=== PATIENT | female | born 1960 | race Two or more races ===

== ENCOUNTER 2024-05-07 22:03 | Inpatient (IN) | payer MEDICARE, MEDICAID, SELFPAY ==
[2024-05-07 22:06] VITALS: BMI 30.9
--- NOTE | 2024-05-07 22:28 | EKG_ITS ---
[facility] Test Date: 2024-05-07 Pat Name: DENISE TELLES Department: Room: - Gender: Female Cross Roller: : 1960 Requested By: Kasi Villafana Order Number: [id number] Reading MD: Kasi Villafana Measurements Intervals [place] Rate: 119 P: 46 [place]: 140 QRS: -29 QRSD: 85 T: 70 QT: 306 QTc: 432 Interpretive Statements SINUS TACHYCARDIA BORDERLINE LEFT AXIS DEVIATION [QRS AXIS < -20] LEFT VENTRICULAR HYPERTROPHY AND ST-T CHANGE [VOLTAGE CRITERIA PLUS ST/T ABNORMALITY] No previous ECG available for comparison /store/S0/[id number].pdf
[2024-05-07 22:32] VITALS: BP 122/81; PULSE 117; RESP 20; TEMP 36.9; O2SAT 99
--- NOTE | 2024-05-07 22:41 | XR_ITS ---
Examination: AP chest single view Technique: AP portable upright chest single view Exam date and time: May 07, 2024, 10:29 PM Indications: Shortness of breath today. Findings: Normal heart size. No pneumonia or pulmonary edema. Intact osseous structures Impression: No pulmonary edema or pneumonia
--- NOTE | 2024-05-07 22:42 | PD.EDRME ---
Rapid Medical Screening Exam E Arrival date/time: 05/07/24 22:03 63F with history of cirrhosis, psoriatic arthritis , and anemia presents to ED with ab fullness/pain that is causing SOB. Chief Complaint: Abdominal Pain Vital signs: Vital Signs Temperature 98.5 F 05/07/24 22:32 Pulse Rate 117 H 05/07/24 22:32 Respiratory Rate 20 05/07/24 22:32 Blood Pressure 122/81 05/07/24 22:32 Pulse Oximetry (%) 99 05/07/24 22:32 Oxygen Delivery Method Room Air 05/07/24 22:32
[2024-05-07 23:49] LABS: Basophils # (Auto) 0.1 Thou/mm3 (0.0-0.2); Basophils % (Auto) 0 % (0-2.5); Eosinophils % (Auto) 0 % (0-10); Hematocrit 34.4 % (36.0-46.0); Hemoglobin 11.4 g/dL (12.0-16.0); Immature Granulocytes % (Auto) 1 % (0-0); Immature Granulocytes Auto 0.14 Thou/mm3 (0.00-0.00); Lymphocytes # (Auto) 3.1 Thou/mm3 (1.0-4.8); Lymphocytes % (Auto) 21 % (10-50); Mean Corpuscular HGB Conc 33.1 g/dl (31.0-37.0); Mean Corpuscular Hemoglobin 29.7 pg (25.0-35.0); Mean Corpuscular Volume 90 fL (80-100); Monocytes # (Auto) 0.7 Thou/mm3 (0.0-0.8); Monocytes % (Auto) 5 % (0-12); Neutrophils % (Auto) 73 % (37-80); Nucleated Red Blood Cell % 0 /100 WBC (0); Platelet Count 250 Thou/mm3 (140-440); RDW Standard Deviation 45.6 fL (36.4-46.3); Red Blood Count 3.84 Miln/mm3 (4.00-5.20)
[2024-05-08] VITALS (11 sets, daily range): BP systolic 148–195; BP diastolic 80–99; PULSE 86–103; RESP 15–30; TEMP 36.4–37.4; O2SAT 94–100
[2024-05-08 00:01] LABS: INR 1.1 (0.9-1.3); Partial Thromboplastin Time 24.4 Seconds (22.0-36.0); Prothrombin Time 11.8 Seconds (9.0-12.2)
[2024-05-08 00:07] LABS: Alanine Aminotransferase 42 U/L (10-49); Albumin, Serum 3.5 gm/dL (3.4-4.8); Albumin/Globulin Ratio 1.3 (1.2-2.2); Alkaline Phosphatase 157 U/L (46-116); Anion Gap 13 (7-16); Aspartate Amino Transferase 57 U/L (0-34); BUN/Creatinine Ratio 25 Ratio (12-20); Bilirubin,Total 1.7 mg/dL (0.3-1.2); Blood Urea Nitrogen 27 mg/dL (9-23); Calcium 8.7 mg/dL (8.3-10.6); Calcium (Corrected) 9.1 mg/dL (8.5-10.1); Carbon Dioxide 20.1 mMol/L (20.0-31.0); Chloride 108 mMol/L (98-107); Creatinine (Component) 1.1 mg/dL (0.6-1.3); Estimated Creatinine Clearance 54.1 mL/min (>60); Globulin 2.8 gm/dL (2.3-3.5); Glucose 231 mg/dL (74-106); Lipase 77 U/L (12-53); Osmolality,Calculated 293 (275-295); Sodium 141 mMol/L (136-145); Total Protein 6.3 gm/dL (5.7-8.2); Troponin I 0.025 ng/mL (0.0-0.045); eGFR 56 See Note
--- NOTE | 2024-05-08 02:27 | PD.EDABDPN ---
ED Abdominal Pain RME/HPI General Chief Complaint: Abdominal Pain Stated complaint: ABD DISTENTION, SOB, WEAKNESS Arrival date/time: 05/07/24 22:03 Limitations: no limitations RME / HPI RME / HPI narrative: 05/07/24 22:03 63F with history of cirrhosis, psoriatic arthritis , and anemia presents to ED with ab fullness/pain that is causing SOB. -------- Dr. Spears's Main ED Evaluation: Related Data Home Medications ?Medication ?Instructions ?Recorded ?Confirmed No Known Home Medications 12/03/19 12/03/19 Allergies Allergy/AdvReac Type Severity Reaction Status Date / Time Sulfa (Sulfonamide Allergy Rash Verified 05/07/24 22:05 Antibiotics) Review of Systems Review of Systems Systems Reviewed: All systems reviewed, normal except as documented ED Exam General Limitations: Present no limitations General appearance: Present alert and in no apparent distress Head Head exam: Present atraumatic Eye Eye exam: Present normal appearance, PERRL and EOMI ENT ENT exam: Present normal exam, normal oropharynx and mucous membranes moist Neck Neck exam: Present normal inspection, full ROM and trachea midline Chest Chest inspection: Present normal inspection and symmetric chest wall rise Respiratory Respiratory exam: Present normal lung sounds bilaterally Cardiovascular Cardiovascular exam: Present regular rate, normal rhythm and normal heart sounds Abdominal Exam Abdominal exam: Present soft and normal bowel sounds Extremities Exam Extremities exam: Present normal inspection and full ROM Back Exam Back exam: Present normal inspection and full ROM Neurological Exam Neurological exam: Present alert, oriented X3 and CN II-XII intact Psychiatric Psychiatric exam: Present normal affect and normal mood Skin Skin exam: Present warm, dry, intact and normal color Course Quality Measures none Orders Category Date Time Status EKG (ED ONLY) *Do not use* NOW Care 05/07/24 22:28 Completed EKG (ED Only) Stat Exams 05/07/24 22:28 Draft XR chest 1V portable Stat Exams 05/07/24 22:41 Completed CBC Stat Lab 05/07/24 23:30 Completed Comprehensive Metabolic Panel Stat Lab 05/07/24 23:30 Completed Drug Screen,Urine Stat Lab 05/07/24 22:41 Ordered Lipase Stat Lab 05/07/24 23:30 Completed Partial Thromboplastin Time Stat Lab 05/07/24 23:30 Completed Prothrombin Time with INR Stat Lab 05/07/24 23:30 Completed Troponin I Stat Lab 05/07/24 23:30 Completed Urinalysis Stat Lab 05/07/24 22:41 Ordered Vital Signs Vital signs: Vital Signs Temperature 98.5 F 05/07/24 22:32 Pulse Rate 117 H 05/07/24 22:32 Respiratory Rate 20 05/07/24 22:32 Blood Pressure 122/81 05/07/24 22:32 Pulse Oximetry (%) 99 05/07/24 22:32 Oxygen Delivery Method Room Air 05/07/24 22:32 Discharge Plan Prescriptions/Referrals Prescriptions/Med Rec: No Action No Known Home Medications Referrals: No Primary/Family,Physician [Primary Care Provider] - In 1 week Patient/Caregiver Discharge Instructions Print Language: [place]ib[place]ian
--- NOTE | 2024-05-08 03:30 | PD.EDADULT ---
ED General RME/HPI General Chief complaint: Abdominal Pain Stated complaint: ABD DISTENTION, SOB, WEAKNESS Arrival date/time: 05/07/24 22:03 Limitations: no limitations RME / HPI RME / HPI narrative: 05/07/24 22:03 63F with history of cirrhosis, psoriatic arthritis , and anemia presents to ED with ab fullness/pain that is causing SOB. -------- Dr. Spears's Main ED Evaluation: 63-year-old female with history of cirrhosis, depression, depression arthritis, history of psoriasis anemia, chronic pain, was off her medications since February 25 when her insurance has run out. Patient states the pain is gotten worse over the last few days, it is constant and 3 out of 10. Increasing shortness of breath from the abdominal pain. Nausea, and vomiting but no bright red blood per rectum. The patient is on a very limited $1800 a month income and cannot afford any of her medications The patient was on spironolactone, Roxicodone extended release, hydrocodone ER 15 mg twice a day, oxy codon 5 mg IR 1-2 a day, lamotrigine 200 mg 1 daily, metoprolol 50 mg 1 daily, Otezla 30 mg twice a day, duloxetine 60 mg(Cymbalta) for pain control, and Skyrizi injection. More depressed since her mother March 28. Patient came in to get a checkup to make sure that she does not have an active infection. No vomiting blood, no blood in her stool. Related Data Home Medications ?Medication ?Instructions ?Recorded ?Confirmed No Known Home Medications 12/03/19 12/03/19 Allergies Allergy/AdvReac Type Severity Reaction Status Date / Time Sulfa (Sulfonamide Allergy Rash Verified 05/07/24 22:05 Antibiotics) Review of Systems Review of Systems Systems Reviewed: All systems reviewed, normal except as documented ED Exam General Limitations: Present no limitations General appearance: Present alert, in no apparent distress and other (appears clinically dehydrated) Head Head exam: Present atraumatic Eye Eye exam: Present PERRL, EOMI and scleral icterus (mild) ENT ENT exam: Present normal oropharynx and mucous membranes dry Neck Neck exam: Present normal inspection, full ROM and trachea midline Chest Chest inspection: Present normal inspection and symmetric chest wall rise Respiratory Respiratory exam: Present normal lung sounds bilaterally Cardiovascular Cardiovascular exam: Present normal rhythm, tachycardia and normal heart sounds Abdominal Exam Abdominal exam: Present soft and other (cholecystectomy scar, no fluid wave) Abdominal tenderness: Present epigastrium Extremities Exam Extremities exam: Present normal inspection, full ROM and normal capillary refill Back Exam Back exam: Present normal inspection and full ROM Neurological Exam Neurological exam: Present alert, oriented X3 and CN II-XII intact Psychiatric Psychiatric exam: Present normal affect and normal mood Skin Skin exam: Present warm, dry, intact and normal color Course Course Course Narrative: CXR is ordered for determining the etiology of shortness of breath. 0506: Sepsis alert initiated. Orders made at this time are congruent with ED Adult Sepsis Order List. Re-evaluation is to be completed. NS IVF and Zosyn ordered. 0600: Care signed out to the next oncoming provider. Past medical, surgical, social and family history reviewed. Vitals and home medications reviewed. Results and treatment plan discussed. They will assume the care of the patient at this time and will follow the patient, pending CT abdomen pelvis and labs. Quality Measures Possible source: GI tract/intra-abdominal Blood cultures ordered: yes Antibiotic ordered: Yes sepsis and none Orders Category Date Time Status CT Screening NOW Care 05/08/24 05:32 Active [employer] Q4H START 00 Care 05/08/24 05:04 Active EKG (ED ONLY) *Do not use* NOW Care 05/07/24 22:28 Completed Insert IV NOW Care 05/08/24 05:04 Active Strict Intake and Output Routine Care 05/08/24 05:[address] abdomen pelvis w con Stat Exams 05/08/24 05:32 Ordered EKG (ED Only) Stat Exams 05/07/24 22:28 Draft US gall bladder Stat Exams 05/08/24 03:45 Taken XR chest 1V SEPSIS PROTOCOL Stat Exams 05/08/24 05:04 Ordered XR chest 1V portable Stat Exams 05/07/24 22:41 Completed Blood Culture (Lab) Stat Lab 05/08/24 05:04 Ordered CBC Stat Lab 05/07/24 23:30 Completed CBC Stat Lab 05/08/24 05:04 Ordered Comprehensive Metabolic Panel Stat Lab 05/07/24 23:30 Completed Drug Screen,Urine Stat Lab 05/07/24 04:30 Completed Lactate (Lactic Acid) Stat Lab 05/08/24 05:04 Ordered Lipase Stat Lab 05/07/24 23:30 Completed Partial Thromboplastin Time Stat Lab 05/07/24 23:30 Completed Procalcitonin Stat Lab 05/08/24 05:04 Ordered Prothrombin Time with INR Stat Lab 05/07/24 23:30 Completed Troponin I Stat Lab 05/07/24 23:30 Completed Troponin I Stat Lab 05/08/24 05:04 Ordered Urinalysis Stat Lab 05/07/24 04:30 Completed Urinalysis Stat Lab 05/08/24 05:04 Ordered Ketorolac Inj [Toradol Inj] Med 05/08/24 05:15 Discontinued 15 mg IVP X1 ONE Piper/Tazo 3.375 gm Premix [Zosyn] Med 05/08/24 05:06 Discontinued 3.375 gm in 50 ml IV X1 Sodium Chloride 0.9% 1000 ml [Ns] 1,641 ml Med 05/08/24 05:13 Active IV 1,641 mls/hr Vital Signs Vital signs: Vital Signs Temperature 98.5 F 05/07/24 22:32 Pulse Rate 117 H 05/07/24 22:32 Respiratory Rate 20 05/07/24 22:32 Blood Pressure 122/81 05/07/24 22:32 Pulse Oximetry (%) 99 05/07/24 22:32 Oxygen Delivery Method Room Air 05/07/24 22:32 [facility] Patient data External records reviewed:: [facility] previous records (Per chart review, patient has no relevant previous ED visits.) Clinical information provided by:: patient Social determinants that could affect healthcare access:: mental health (depression) Patient has the following chronic illnesses:: cirrhosis How is presenting disease/condition affected by chronic disease/condition?: caused by Evaluation data The following diagnostics were reviewed and interpreted by me:: lab results, radiology exam(s) and EKG tracing(s) Lab and/or radiology exams considered but not ordered:: none Interpretation Summary: WBC count is elevated at 15.0, PT and INR are normal, PTT is normal, Total Bilirubin is 1.7, Lipase is 77, according to my interpretation. EKG done at 2230, sinus tachycardia, rate of 119, LVH, T-wave inversion in avL (which is new), old Q waves, no STEMI, according to my interpretation. ----- [place] [facility] Report Signed Patient: SABRINADENISE NGUYEN [facility]. Record#: [id number] Birthdate: 1960 Age/Sex: 63 / F Location: [facility] Attending Dr: Ordering Physician: Kasi Villafana PA-C Date of Service: 05/07/24 Procedure(s): XR chest 1V portable Accession Number(s): [id number] cc: Veto Martinez MD; Kasi Villafana PA-C~ Examination: AP chest single view Technique: AP portable upright chest single view Exam date and time: May 07, 2024, 10:29 PM Indications: Shortness of breath today. Findings: Normal heart size. No pneumonia or pulmonary edema. Intact osseous structures Impression: No pulmonary edema or pneumonia Dictated By: Veto Martinez MD Signed By: <Electronically signed by Veto Martinez MD in [place]> 05/07/24 2319 [place] Preliminary Report Draft Patient: DENISE TELLES. Record#: [id number] Birthdate: 1960 Age/Sex: 63 / F Location: [facility] Attending Dr: Ordering Physician: Date of Service: Procedure(s): Accession Number(s): cc: ~ Gallbladder ultrasound. May 08, 2024 0411 hours Clinical history: Abdomen pain, elevated lipase Comparison: None Findings: The evaluation is limited due to overlying bowel gas The liver measures 15.3 cm and demonstrates nodular contour. There is increased echogenicity of the liver. No intrahepatic biliary ductal dilatation. The main portal vein is patent and demonstrates hepatopetal flow. The gallbladder is surgically absent. There is no fluid collection in the gallbladder fossa. The common bile duct is normal in caliber at 3.4 mm. The pancreas is unremarkable to the extent visualized. The inferior vena cava is unremarkable to the extent visualized. Impression: Status post cholecystectomy. No fluid collection in the gallbladder fossa. Findings suspicious for hepatic cirrhosis with fatty infiltration. Report Electronically Signed By: Brien Marks 05/08/2024 4:59:47 AM [EST] Medications Medications considered but not ordered:: none Medication administrations:: Medication Administration History Sodium Chloride (Ns) 1,641 mls @ 1,641 mls/hr 30 ml/kg infuse over 60 min (1641 ml) IV .Q1H ONE Stop: 05/08/24 06:12 Discontinued Medications Piperacillin/Tazobactam/Dextrose (Zosyn) 3.375 gm in 50 mls @ 100 mls/hr IV X1 ONE Stop: 05/08/24 05:35 Ketorolac Tromethamine (Ketorolac Inj 30 Mg/Ml Vial) 15 mg IVP X1 ONE Stop: 05/08/24 05:16 see above, if any Consultations Consultation(s) initiated? (list below): No Diagnosis Differential Diagnosis ED Complaint MDM: Depression, hallucinations, social work needs, pain needs. Infection, Most likely diagnosis given after review of the tests above:: final dx pending at sign out Admission Indicated Admission indicated?: not indicated Explain why admission is indicated or not indicated:: Patient is pending additional labs and CT abdomen pelvis at sign out. Admission Request Was there a request for admission?: No Disposition Plan Disposition Plan: other (specify) (Signed out to the next oncoming provider at [address] abdomen pelvis and labs.) Medical Decision Making MDM Narrative MDM Narrative: Patient denies any history of paracentesis. She states her cirrhosis is not due to alcohol abuse. Differential Diagnosis Differential Diagnosis: Depression, hallucinations, social work needs, pain needs. Infection, Lab Data 05/07/24 23:30 05/07/24 23:30 Labs: Lab Results 05/07/24 05/07/24 Range/Units 04:30 23:30 WBC 15.0 H (3.6-11.0) Thou/mm3 RBC 3.84 L (4.00-5.20) Miln/mm3 Hgb 11.4 L (12.0-16.0) g/dL Hct 34.4 L (36.0-46.0) % MCV 90 (80-100) fL MCH 29.7 (25.0-35.0) pg MCHC 33.1 (31.0-37.0) g/dl RDW Std Deviation 45.6 (36.4-46.3) fL Plt Count 250 (140-440) Thou/mm3 Neut % (Auto) 73 (37-80) % Lymph % (Auto) 21 (10-50) % [place] % (Auto) 5 (0-12) % Eos % (Auto) 0 (0-10) % Baso % (Auto) 0 (0-2.5) % Neut # (Auto) 11.0 H (1.8-7.7) Thou/mm3 Lymph # (Auto) 3.1 (1.0-4.8) Thou/mm3 [place] # (Auto) 0.7 (0.0-0.8) Thou/mm3 Eos # (Auto) 0.0 (0.0-0.5) Thou/mm3 Baso # (Auto) 0.1 (0.0-0.2) Thou/mm3 Immature Gran # (Auto) 0.14 H (0.00-0.00) Thou/mm3 Absolute Nucleated RBC 0.00 (0.00-0.00) Thou/mm3 Immature Gran % 1 H (0-0) % Nucleated RBC % 0 (0) /100 WBC PT 11.8 (9.0-12.2) Seconds INR 1.1 (0.9-1.3) APTT 24.4 (22.0-36.0) Seconds Sodium 141 (136-145) mMol/L Potassium 4.0 (3.4-5.1) mMol/L Chloride 108 H (98-107) mMol/L Carbon Dioxide 20.1 (20.0-31.0) mMol/L Anion Gap 13 (7-16) BUN 27 H (9-23) mg/dL Creatinine 1.1 (0.6-1.3) mg/dL Estim Creat Clear Calc 54.1 L (>60) mL/min eGFR 56 L (60 - ) See Note BUN/Creatinine Ratio 25 H (12-20) Ratio Glucose 231 H (74-106) mg/dL Calculated Osmolality 293 (275-295) Calcium 8.7 (8.3-10.6) mg/dL Corrected Calcium 9.1 (8.5-10.1) mg/dL Total Bilirubin 1.7 H (0.3-1.2) mg/dL AST 57 H (0-34) U/L ALT 42 (10-49) U/L Alkaline Phosphatase 157 H (46-116) U/L Troponin I 0.025 (0.0-0.045) ng/mL Total Protein 6.3 (5.7-8.2) gm/dL Albumin 3.5 (3.4-4.8) gm/dL Globulin 2.8 (2.3-3.5) gm/dL Albumin/Globulin Ratio 1.3 (1.2-2.2) Lipase 77 H (12-53) U/L Ur Collection Type Clean Catch Urine Color Yellow (Lt Yel-Yel) Urine Clarity Turbid A (Clear/Hazy) Urine pH 6.0 (5.0-7.0) Ur Specific [place] 1.029 (1.001-1.035) Urine Protein 1+ A (Neg - Trace) Urine Glucose (UA) Trace (Negative) Urine Ketones 1+ A (Negative) Urine Blood Negative (Negative) Urine Nitrite Negative (Negative) Urine Bilirubin Negative (Negative) Urine Urobilinogen (Auto) Negative (0.0-1.0) mg/dL Ur Leukocyte Esterase Negative (Negative) Urine RBC 3 (0-3) /hpf Urine WBC 5 (0-5) /hpf Ur Squamous Epith Cells 4 (0-5) /hpf Urine Bacteria 1+ A (None) Hyaline Casts < 1 (0-1) /hpf Urine Opiates Screen Negative (Negative) Urine Fentanyl Screen Negative (Negative) Ur Barbiturates Screen Negative (Negative) U Amphetamin/Meth Scrn Negative (Negative) U Benzodiazepines Scrn Negative (Negative) U Cocaine Metab Screen Negative (Negative) U Marijuana (THC) Screen Negative (Negative) Discharge Plan Prescriptions/Referrals Prescriptions/Med Rec: No Action No Known Home Medications Referrals: No Primary/Family,Physician [Primary Care Provider] - In 1 week Problem List Clinical Impression: Acute dehydration, Acute epigastric pain Patient/Caregiver Discharge Instructions Print Language: Croatian
--- NOTE | 2024-05-08 03:45 | XR_ITS ---
Examination: Abdomen sonogram, Limited Date and time of exam: May 08, 2024, 0411 hrs. Indications: Abdominal distention weakness shortness of breath beginning one week ago Technique: Real-time martini scale transabdominal sonographic images of the upper abdomen obtained. Findings: Absent gallbladder. Common bile duct 0.3 cm. Pancreatic head 2.3 cm. Liver 15.3 cm fatty infiltration lobular contour. Normal hepatopedal portal venous flow. Patent IVC. Impression: Normal common bile duct. Primary hepatocellular disease versus cirrhosis
[2024-05-08 04:44] LABS: Collection Type, Urine Clean Catch
[2024-05-08 04:49] LABS: Bacteria,Urine 1+; Bilirubin,Urine Negative (Negative); Blood,Urine Negative (Negative); Clarity,Urine Turbid (Clear/Hazy); Color,Urine Yellow (Lt Yel-Yel); Glucose, Urine Trace (Negative); Hyaline Casts,Urine < 1 /hpf (0-1); Ketones,Urine 1+ (Negative); Leukocyte Esterase,Urine Negative (Negative); Nitrite,Urine Negative (Negative); Protein,Urine 1+ (Neg - Trace); RBC,Urine 3 /hpf (0-3); Specific Gravity,Urine 1.029 (1.001-1.035); Squamous Epithelial Cell,Urine 4 /hpf (0-5); Urobilinogen,Urine Negative mg/dL (0.0-1.0); WBC,Urine 5 /hpf (0-5)
[2024-05-08 04:55] LABS: Amphetamine/Methamp Scrn,U Negative (Negative); Barbiturate Screen,Urine Negative (Negative); Benzodiazepines Screen,Urine Negative (Negative); Benzoylecgonine Screen, Ur Negative (Negative); Fentanyl Screen,Urine Negative (Negative); Opiate Screen,Urine Negative (Negative); THC Screen,Urine Negative (Negative)
--- NOTE | 2024-05-08 05:00 | PRELIM_ITS ---
Gallbladder ultrasound. May 08, 2024 0411 hours Clinical history: Abdomen pain, elevated lipase Comparison: None Findings: The evaluation is limited due to overlying bowel gas The liver measures 15.3 cm and demonstrates nodular contour. There is increased echogenicity of the liver. No intrahepatic biliary ductal dilatation. The main portal vein is patent and demonstrates hepatopetal flow. The gallbladder is surgically absent. There is no fluid collection in the gallbladder fossa. The common bile duct is normal in caliber at 3.4 mm. The pancreas is unremarkable to the extent visualized. The inferior vena cava is unremarkable to the extent visualized. Impression: Status post cholecystectomy. No fluid collection in the gallbladder fossa. Findings suspicious for hepatic cirrhosis with fatty infiltration. Report Electronically Signed By: Brien Marks 05/08/2024 4:59:47 AM [EST]
--- NOTE | 2024-05-08 05:04 | XR_ITS ---
Examination: AP chest single view Technique: AP portable semiupright chest single view Exam date and time: May 08, 2024, 0423 hrs. Comparison May 07, 2024 Indications: Sepsis today Findings: Normal heart size. Lungs are clear. Osseous structures are intact. Impression: No pneumonia identified
[2024-05-08] MEDS: SODIUM CHLORIDE 0.9% 1000 ML 1,641 ML 1641 ML IV (05:30)
[2024-05-08] MEDS: PIPER/TAZO 3.375 GM PREMIX 3.375 GM/50 ML BAG IV (05:30)
--- NOTE | 2024-05-08 05:32 | XR_ITS ---
Examination: CT abdomen with intravenous contrast CT pelvis with intravenous contrast 2-D coronal reconstructions 2-D sagittal reconstructions Date and time of exam:May 08, 2024, 0624 hrs. Indications: Abdominal pain epigastric pain beginning worse, sepsis today. CTDI: vol (mGy) 9.1 DLP: (mGycm) 496 Technique: Multiple axial sections of the abdomen and pelvis have been obtained. 64 slice high-resolution scanner used. 3 mm axial sections have been obtained, post intravenous injection 60 cc [id number] 2-D sagittal, coronal reconstructions obtained. Low dose protocols were performed. One or more of the following dose reduction techniques were used; automated exposure control, adjustment of the mA and/or KV according to patient size, use of iterative reconstruction technique. Findings: Cirrhosis, liver mildly lobular contour Mild ascites. Esophageal varices. No pancreatic mass. Gallbladder not visualized No hydronephrosis 2 mm lower pole left renal calculus. Normal appendix Diffuse wall thickening of the colon and small bowel Atrophic uterus No bladder mass Prominent osteopenia Impression: Cirrhosis Mild ascites. Esophageal varices. Nonobstructing 2 mm left renal calculus Diffuse hepatic colopathy hepatic enteropathy pattern
[2024-05-08 05:43] LABS: Lactate (Lactic Acid) 2.4 mMol/L (0.4-2.0)
[2024-05-08 05:46] LABS: Basophils # (Auto) 0.1 Thou/mm3 (0.0-0.2); Basophils % (Auto) 0 % (0-2.5); Eosinophils % (Auto) 0 % (0-10); Hematocrit 32.5 % (36.0-46.0); Immature Granulocytes % (Auto) 1 % (0-0); Immature Granulocytes Auto 0.12 Thou/mm3 (0.00-0.00); Lymphocytes % (Auto) 12 % (10-50); Mean Corpuscular HGB Conc 33.8 g/dl (31.0-37.0); Mean Corpuscular Hemoglobin 29.7 pg (25.0-35.0); Mean Corpuscular Volume 88 fL (80-100); Monocytes # (Auto) 0.6 Thou/mm3 (0.0-0.8); Monocytes % (Auto) 3 % (0-12); Neutrophils # (Auto) 13.5 Thou/mm3 (1.8-7.7); Neutrophils % (Auto) 83 % (37-80); Nucleated Red Blood Cell % 0 /100 WBC (0); Platelet Count 281 Thou/mm3 (140-440); White Blood Count 16.2 Thou/mm3 (3.6-11.0)
[2024-05-08] MEDS: KETOROLAC INJ 30 MG/ML VIAL 15 MG IVP (06:15)
[2024-05-08 06:19] LABS: Troponin I 0.051 ng/mL (0.0-0.045)
--- NOTE | 2024-05-08 06:59 | PD.EDADDENDU ---
Emergency Room Addendum <Hellen Dias - Last Filed: 05/08/24 12:32> Addendum Narrative: 0600: Care assumed from Dr. Spears, the previous shift emergency physician. Past medical, surgical, social and family history reviewed. Vitals and home medications reviewed. I will assume the care of the patient at this time pending CT abdomen/pelvis report, labs, and final disposition. Please refer to the emergency department record for history and examination from initial visit.? Nursing notes reviewed by me. Vital signs reviewed by me. [facility] records reviewed by me. A sepsis alert was called prior to start of my shift at 05:06 AM. Patient has been given Zosyn and 30ml/kg of IV fluids. Chest xray interpreted by me: Normal cardiac silhouette, no effusion, no consolidation. CT report came back most notable as there is diffuse colonic wall thickening which is attributed to the liver disease. I actually consulted Dr. Dixon the radiologist specifically on this and he does not feel this is a acute colitis picture. There is no other acute pathology localized to the transverse colon to explain her localized right upper quadrant pain. Concern for ischemic bowel is still possible. Will get a venous blood gas and a second lactic acid. The second lactic acid came back at 1.6 1 back in the room and the patient's angry upset stating no one's attending her she was all tied up with the leads, she is obviously mad saying she is going to go to [facility] and that no one's been taking care of her she has been here for hours and hours. She is now reporting black stools to me states she reported this to the nurse and to the previous doctor. Noted her hemoglobin is 11.0 and MCV is 88 Reevaluation her abdomen is unchanged she is got soft abdomen she she jumps when you push on any part of her abdomen deeply and seems to have some vague right upper quadrant tenderness as earlier. Rectal exam performed in presence of female RN reveals>>> dark brown stool that is guaiac positive. Since patient is cirrhotic and has melena and of esophageal varices by history Dr. Trevizo was called and will be consulting and Dr. Meek the hospitalist will be admitted RADIOLOGY Ordering Physician: Selena Spears MD Date of Service: 05/08/24 Procedure(s): CT abdomen pelvis w con Accession Number(s): [id number] cc: Veto Martinez MD; NO PRIMARY/FAMILY,PHYSICIAN; Selena Spears MD~ Examination: CT abdomen with intravenous contrast CT pelvis with intravenous contrast 2-D coronal reconstructions 2-D sagittal reconstructions Date and time of exam:May 08, 2024, 0624 hrs. Indications: Abdominal pain epigastric pain beginning worse, sepsis today. CTDI: vol (mGy) 9.1 DLP: (mGycm) 496 Technique: Multiple axial sections of the abdomen and pelvis have been obtained. 64 slice high-resolution scanner used. 3 mm axial sections have been obtained, post intravenous injection 60 cc [id number] 2-D sagittal, coronal reconstructions obtained. Low dose protocols were performed. One or more of the following dose reduction techniques were used; automated exposure control, adjustment of the mA and/or KV according to patient size, use of iterative reconstruction technique. Findings: Cirrhosis, liver mildly lobular contour Mild ascites. Esophageal varices. No pancreatic mass. Gallbladder not visualized No hydronephrosis 2 mm lower pole left renal calculus. Normal appendix Diffuse wall thickening of the colon and small bowel Atrophic uterus No bladder mass Prominent osteopenia Impression: Cirrhosis Mild ascites. Esophageal varices. Nonobstructing 2 mm left renal calculus Diffuse hepatic colopathy hepatic enteropathy pattern Dictated By:Veto Martinez MD Signed By:<Electronically signed by Veto Martinez MD in [place]>05/08/24 0749 <Harpal Hawk MD - Last Filed: 05/08/24 18:09> Addendum Narrative: 0600: Care assumed from Dr. Spears, the previous shift emergency physician. Past medical, surgical, social and family history reviewed. Vitals and home medications reviewed. I will assume the care of the patient at this time pending CT abdomen/pelvis report, labs, and final disposition. Please refer to the emergency department record for history and examination from initial visit.? Nursing notes reviewed by me. Vital signs reviewed by me. [facility] records reviewed by me. A sepsis alert was called prior to start of my shift at 05:06 AM. Patient has been given Zosyn and 30ml/kg of IV fluids. Chest xray interpreted by me: Normal cardiac silhouette, no effusion, no consolidation. CT report came back most notable as there is diffuse colonic wall thickening which is attributed to the liver disease. I actually consulted Dr. Dixon the radiologist specifically on this and he does not feel this is a acute colitis picture. There is no other acute pathology localized to the transverse colon to explain her localized right upper quadrant pain. Concern for ischemic bowel is still possible. Will get a venous blood gas and a second lactic acid. The second lactic acid came back at 1.6 1 back in the room and the patient's angry upset stating no one's attending her she was all tied up with the leads, she is obviously mad saying she is going to go to [facility] and that no one's been taking care of her she has been here for hours and hours. She is now reporting black stools to me states she reported this to the nurse and to the previous doctor. Noted her hemoglobin is 11.0 and MCV is 88 Reevaluation her abdomen is unchanged she is got soft abdomen she she jumps when you push on any part of her abdomen deeply and seems to have some vague right upper quadrant tenderness as earlier. Rectal exam performed in presence of female RN reveals>>> dark brown stool that is guaiac positive. Since patient is cirrhotic and has melena and of esophageal varices by history Dr. Trevizo was called and will be consulting and Dr. Meek the hospitalist will be admitted RADIOLOGY Ordering Physician: Selena Spears MD Date of Service: 05/08/24 Procedure(s): CT abdomen pelvis w con Accession Number(s): [id number] cc: Veto Martinez MD; NO PRIMARY/FAMILY,PHYSICIAN; Selena Spears MD~ Examination: CT abdomen with intravenous contrast CT pelvis with intravenous contrast 2-D coronal reconstructions 2-D sagittal reconstructions Date and time of exam:May 08, 2024, 0624 hrs. Indications: Abdominal pain epigastric pain beginning worse, sepsis today. CTDI: vol (mGy) 9.1 DLP: (mGycm) 496 Technique: Multiple axial sections of the abdomen and pelvis have been obtained. 64 slice high-resolution scanner used. 3 mm axial sections have been obtained, post intravenous injection 60 cc [id number] 2-D sagittal, coronal reconstructions obtained. Low dose protocols were performed. One or more of the following dose reduction techniques were used; automated exposure control, adjustment of the mA and/or KV according to patient size, use of iterative reconstruction technique. Findings: Cirrhosis, liver mildly lobular contour Mild ascites. Esophageal varices. No pancreatic mass. Gallbladder not visualized No hydronephrosis 2 mm lower pole left renal calculus. Normal appendix Diffuse wall thickening of the colon and small bowel Atrophic uterus No bladder mass Prominent osteopenia Impression: Cirrhosis Mild ascites. Esophageal varices. Nonobstructing 2 mm left renal calculus Diffuse hepatic colopathy hepatic enteropathy pattern Dictated By:Veto Martinez MD Signed By:<Electronically signed by Veto Martinez MD in [place]>05/08/24 0749
[2024-05-08 08:34] LABS: Lactate (Lactic Acid) 1.6 mMol/L (0.4-2.0)
[2024-05-08 08:41] LABS: Reflex Lactate? Y
[2024-05-08 08:58] LABS: Troponin I 0.043 ng/mL (0.0-0.045)
--- NOTE | 2024-05-08 09:46 | PD.ASTHM ---
ED Asthma RME/HPI General Chief Complaint: Abdominal Pain Stated Complaint: ABD DISTENTION, SOB, WEAKNESS Time Seen by Provider: 05/08/24 06:09 Arrival date/time: 05/07/24 22:03 Mode of arrival: ambulatory Limitations: no limitations RME / HPI RME / HPI Narrative: 05/07/24 22:03 63F with history of cirrhosis, psoriatic arthritis , and anemia presents to ED with ab fullness/pain that is causing SOB. -------- Dr. Spears's Main ED Evaluation: 63-year-old female with history of cirrhosis, depression, depression arthritis, history of psoriasis anemia, chronic pain, was off her medications since February 25 when her insurance has run out. Patient states the pain is gotten worse over the last few days, it is constant and 3 out of 10. Increasing shortness of breath from the abdominal pain. Nausea, and vomiting but no bright red blood per rectum. The patient is on a very limited $1800 a month income and cannot afford any of her medications The patient was on spironolactone, Roxicodone extended release, hydrocodone ER 15 mg twice a day, oxy codon 5 mg IR 1-2 a day, lamotrigine 200 mg 1 daily, metoprolol 50 mg 1 daily, Otezla 30 mg twice a day, duloxetine 60 mg(Cymbalta) for pain control, and Skyrizi injection. More depressed since her mother March 28. Patient came in to get a checkup to make sure that she does not have an active infection. No vomiting blood, no blood in her stool. Related Data Home Medications ?Medication ?Instructions ?Recorded ?Confirmed No Known Home Medications 12/03/19 12/03/19 Allergies Allergy/AdvReac Type Severity Reaction Status Date / Time Sulfa (Sulfonamide Allergy Rash Verified 05/07/24 22:05 Antibiotics) ED Exam General Limitations: Present no limitations General appearance: Present alert, in no apparent distress and other (appears clinically dehydrated) Head Head exam: Present atraumatic Eye Eye exam: Present normal appearance, PERRL and EOMI Neck Neck exam: Present normal inspection, full ROM and trachea midline Respiratory Respiratory exam: Present normal lung sounds bilaterally Cardiovascular Cardiovascular exam: Present regular rate, normal rhythm and normal heart sounds Abdominal Exam Abdominal exam: Present soft and normal bowel sounds Extremities Exam Extremities exam: Present normal inspection and full ROM Back Exam Back exam: Present normal inspection and full ROM Neurological Exam Neurological exam: Present alert, oriented X3 and CN II-XII intact Psychiatric Psychiatric exam: Present normal affect and normal mood Skin Skin exam: Present warm, dry, intact and normal color Course Course Course Narrative: CXR is ordered for determining the etiology of shortness of breath. 0506: Sepsis alert initiated. Orders made at this time are congruent with ED Adult Sepsis Order List. Re-evaluation is to be completed. NS IVF and Zosyn ordered. 0600: Care signed out to the next oncoming provider. Past medical, surgical, social and family history reviewed. Vitals and home medications reviewed. Results and treatment plan discussed. They will assume the care of the patient at this time and will follow the patient, pending CT abdomen pelvis and labs. Quality Measures none Orders Category Date Time Status CT Screening NOW Care 05/08/24 05:32 Active Inside Sales Account Representative Q4H START 00 Care 05/08/24 05:04 Active EKG (ED ONLY) *Do not use* NOW Care 05/07/24 22:28 Completed Insert IV NOW Care 05/08/24 05:04 Active Strict Intake and Output Routine Care 05/08/24 05:[address] abdomen pelvis w con Stat Exams 05/08/24 05:32 Completed EKG (ED Only) Stat Exams 05/07/24 22:28 Draft US gall bladder Stat Exams 05/08/24 03:45 Completed XR chest 1V SEPSIS PROTOCOL Stat Exams 05/08/24 05:04 Completed XR chest 1V portable Stat Exams 05/07/24 22:41 Completed Blood Culture (Lab) Stat Lab 05/08/24 05:20 Received CBC Stat Lab 05/07/24 23:30 Completed CBC Stat Lab 05/08/24 05:30 Completed Comprehensive Metabolic Panel Stat Lab 05/07/24 23:30 Completed Drug Screen,Urine Stat Lab 05/07/24 04:30 Completed Lactate (Lactic Acid) Stat Lab 05/08/24 05:30 Completed Lactate (Lactic Acid) Stat Lab 05/08/24 08:30 Completed Lactic Acid, 3 HR Stat Lab 05/08/24 11:30 Ordered Lipase Stat Lab 05/07/24 23:30 Completed Partial Thromboplastin Time Stat Lab 05/07/24 23:30 Completed Procalcitonin Stat Lab 05/08/24 05:30 Completed Prothrombin Time with INR Stat Lab 05/07/24 23:30 Completed Troponin I Stat Lab 05/07/24 23:30 Completed Troponin I Stat Lab 05/08/24 05:30 Completed Troponin I Stat Lab 05/08/24 08:30 Completed Urinalysis Stat Lab 05/07/24 04:30 Completed Urinalysis Stat Lab 05/08/24 05:04 Ordered Ketorolac Inj [Toradol Inj] Med 05/08/24 05:15 Discontinued 15 mg IVP X1 ONE Piper/Tazo 3.375 gm Premix [Zosyn] Med 05/08/24 05:06 Discontinued 3.375 gm in 50 ml IV X1 Sodium Chloride 0.9% 1000 ml [Ns] 1,641 ml Med 05/08/24 05:13 Discontinued IV 1,641 mls/hr Vital Signs Vital signs: Vital Signs Temperature 98.5 F 05/07/24 22:32 Pulse Rate 117 H 05/07/24 22:32 Respiratory Rate 20 05/07/24 22:32 Blood Pressure 122/81 05/07/24 22:32 Pulse Oximetry (%) 99 05/07/24 22:32 Oxygen Delivery Method Room Air 05/07/24 22:32 Asthma Evaluation data The following diagnostics were reviewed and interpreted by me:: lab results and radiology exam(s) Medications / Prescriptions Medication administrations:: Medication Administration History Discontinued Medications Piperacillin/Tazobactam/Dextrose (Zosyn) 3.375 gm in 50 mls @ 100 mls/hr IV X1 ONE Stop: 05/08/24 05:35 Last Infusion: 05/08/24 06:10 Dose: Infused Documented By: Admin: 05/08/24 05:30 Dose: 100 mls/hr Documented By: CAROL Sodium Chloride (Ns) 1,641 mls @ 1,641 mls/hr 30 ml/kg infuse over 60 min (1641 ml) IV .Q1H ONE Stop: 05/08/24 06:12 Last Infusion: 05/08/24 07:20 Dose: Infused Documented By: Admin: 05/08/24 05:30 Dose: 1,641 mls/hr Documented By: CAROL Ketorolac Tromethamine (Ketorolac Inj 30 Mg/Ml Vial) 15 mg IVP X1 ONE Stop: 05/08/24 05:16 Last Admin: 05/08/24 06:15 Dose: 15 mg Documented By: CAROL Discharge Plan Prescriptions/Referrals Prescriptions/Med Rec: No Action No Known Home Medications Referrals: No Primary/Family,Physician [Primary Care Provider] - In 1 week Problem List Clinical Impression: Acute dehydration, Acute epigastric pain Patient/Caregiver Discharge Instructions Print Language: Chadian
[2024-05-08 11:50] LABS: Lactic Acid, 3 HR 2.8 mMol/L (0.4-2.0)
[2024-05-08 11:58] LABS: OBS Developer Lot # 23003; OBS QC OK? Yes; Occult Blood, Stool Positive (Negative)
[2024-05-08] MEDS: PANTOPRAZOLE INJ 40 MG VIAL IV ×2 (13:08→20:18)
[2024-05-08] MEDS: cefTRIAXone 1,000 MG in SODIUM CHLORIDE 0.9% (Popper) 50 ML 100 MG IV (13:12)
--- NOTE | 2024-05-08 14:14 | PC.CC ---
Patient is a 63 year-old female who presents to the hospital for GI Bleed. Bisi BRADEN made [id number] contact with patient. ASW introduced self, role, and reason for visit. Patient appeared alert and oriented to self, location, and situation. Patient was pleasant and engaged in initial assessment. Patient confirmed information on demographics and reports to living with her two sons, Chito Polanco and Toby Louie. Patient reports her medical decision maker in the event she is unable to make her own decisions would be her son Toby. At home patient ambulated independently but has been struggling with standing for long periods and time. Patient can complete her own ADLs. Patient does not use any DME at home. Patient receives primary care with Dr. Michael Johnson in [place], [place] and uses [facility] for prescription medications. Upon discharge the patient plans to return home. customer services supervisor to follow up with any discharge needs.
--- NOTE | 2024-05-08 14:42 | XR_ITS ---
EXAMINATION: US abdomen limited ORDERING PROVIDER: Christian Sanford MD HISTORY: Assess for ascites TECHNIQUE: Multiplanar grayscale sonographic images were obtained of the right upper, right lower, left upper, left lower quadrant. Images were obtained by cytotechnologist/cytology supervisor and submitted for radiologist review. COMPARISON: 05/08/2024, CT abdomen pelvis and right upper quadrant ultrasound. FINDINGS: No large volume ascites. Trace ascitic fluid seen to better effect on same day CT abdomen pelvis. IMPRESSION: No large volume ascites. Trace ascitic fluid seen to better effect on same day CT abdomen pelvis.
--- NOTE | 2024-05-08 16:36 | ESHP_ITS ---
<Statement entered by Reynaldo Chávez MD - 05/08/24 18:20> This patient is a 62-year-old female with past medical history of mass cirrhosis, hypertension, psoriatic arthritis and depression presented with abdominal distention and pain x 2 weeks ago with episode of melena 1 episode only. Patient has not been following up with the PCP due to her insurance issues. Patient had an episode of nonbloody emesis and dark loose stools. Patient had associated fever and chills. She had an EGD in the past which showed esophageal varices and a colonoscopy 2 years ago which showed polyp that was removed. Patient was tachycardic and was found to have FOBT positive. Hemoglobin stable at 11.4. CT abdomen pelvis showed cirrhosis with mild ascites and varices. GI has been consulted to follow-up. Patient used to drink do binge drinking however stopped. Home medications were reconciled. Protonix 40 mg IV twice daily was started. Octreotide infusion started. Ordered type and screen. Will follow-up with GI recommendations. All labs and orders were reviewed. I saw and examined the patient, and I agree with current management stated by Dr Claribel MD,PGY1. Plan of care was discussed with the attending physician and resident physician. Disclaimer: Despite multiple revisions, due to the dictation software being used, the document bellow may not be free of grammatical errors including phonetic/typographic errors. However, this does not deter from our commitment to providing health care in the patient's best interest in mind. Dr. Kyler MD, PGY 2 Documentation for date of: 05/08/24 HPI History of Present Illness History of present illness: Leena Beasley is a 63-year-old female with a past medical history of MASH cirrhosis, hypertension, psoriatic arthritis, and depression who presents on 05/08 for progressive abdominal distention and pain for 2 weeks duration and an episode of melena 1 day prior. 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 Additionally, her mother in early March and ran out of her home medications soon thereafter and is when patient started to generally feel unwell. Then in early April patient started to notice increased abdominal distention as well as abdominal pain and yesterday morning had an episode of nausea, nonbloody emesis, and dark-colored loose stools. Associated fever and chills but states she has had the symptoms for 5 weeks. Of note, patient did undergo an EGD 4 years ago and was found to have varices that were banded and underwent colonoscopy 2 years ago and was only told she had a polyp that was removed. In ED, initial vitals significant for HR 117 with EKG showing sinus tachycardia, on room air, afebrile, and normotensive. Noted to be FOBT positive, hemoglobin 11.4, hematocrit 34.4, BUN 27, lactate 2.4. Other labs notable for leukocytosis of 16, creatinine 1.1, glucose 231, T. bili 1.7, AST 57, ALP 157. CT A/P showed cirrhosis, mild ascites, varices, left-sided renal calculus, diffuse hepatic colopathy. US gallbladder showed normal CBD and US abdomen showed no large volume ascites. CXR unremarkable. PMHx: [facility] cirrhosis, hypertension, psoriatic arthritis, depression Medications: Previously on hydrocodone ER 15 mg BID, oxycodone 5 mg IR for breakthrough pain, lamotrigine 200 mg daily, duloxetine 60 mg BID, metoprolol succinate 50 mg daily, otezla 30 mg BID, skyrizi injectible FHx: alcoholic cirrhosis in brother SHx: used to binge drink on weekends during college, no cigarette or illicit drug use PSHx: colonoscopy 2 years ago, EGD 4 years ago, open cholecystectomy, 2 C- sections, unilateral salpingo-oophorectomy Review of Systems Review of Systems Systems Reviewed: All systems reviewed, normal except as documented Past Medical History Surgical History OTHER SURGICAL HX: c/s x2, bladimir Social History SMOKING STATUS: Never smoker SUBSTANCE USE: does not use Past Medical History Comments PMH COMMENT: cirrhosis, depression, psoriatic arthritis Exam Vital Signs Temp Pulse Resp BP Pulse Ox O2 Del Method 98.9 F 102 H 20 162/86 H 95 Room Air 05/08/24 15:27 05/08/24 15:27 05/08/24 15:27 05/08/24 15:27 05/08/24 15:27 05/08/24 15:27 Narrative Exam General: AOx3, in mild distress from pain, able to speak full sentences HEENT: NC/AT, mucous membranes moist, bilateral sclera anicteric Cardiovascular: regular rate and rhythm, S1/S2 present, no murmurs appreciated Pulmonary: clear to auscultation bilaterally, no rales/rhonchi/wheezes Abdominal: tender to palpation, mildly distended, soft, no rebound/guarding, normal bowel sounds present Musculoskeletal: normal ROM, no peripheral edema Skin: warm and dry, intact, no rashes Neuro: CN II-XII intact, no focal deficits Results: Labs 05/11/24 07:36 05/11/24 07:36 Labs: Short CBC 05/07/24 05/08/24 Range/Units 23:30 05:30 WBC 15.0 H 16.2 H (3.6-11.0) Thou/mm3 Hgb 11.4 L 11.0 L (12.0-16.0) g/dL Hct 34.4 L 32.5 L (36.0-46.0) % Plt Count 250 281 D (140-440) Thou/mm3 BMP 05/07/24 23:30 Sodium 141 Potassium 4.0 Chloride 108 H Carbon Dioxide 20.1 BUN 27 H Creatinine 1.1 Glucose 231 H Calcium 8.7 Cardiac Enzymes 05/07/24 05/08/24 05/08/24 Range/Units 23:30 05:30 08:30 Troponin I 0.025 0.051 H* 0.043 (0.0-0.045) ng/mL Liver Function 05/07/24 Range/Units 23:30 Total Bilirubin 1.7 H (0.3-1.2) mg/dL AST 57 H (0-34) U/L ALT 42 (10-49) U/L Alkaline Phosphatase 157 H (46-116) U/L Albumin 3.5 (3.4-4.8) gm/dL Urine 05/07/24 Range/Units 04:30 Urine Color Yellow (Lt Yel-Yel) Urine Clarity Turbid A (Clear/Hazy) Urine pH 6.0 (5.0-7.0) Ur Specific [place] 1.029 (1.001-1.035) Urine Protein 1+ A (Neg - Trace) Urine Glucose (UA) Trace (Negative) Quality Measures Quality Measures sepsis Current suspected stage: sepsis Possible source: GI tract/intra-abdominal Blood cultures ordered: yes Antibiotic ordered: Yes and none Medications Home Medications and Allergies Home Medications ?Medication ?Instructions ?Recorded ?Confirmed ?Type diclofenac sodium 1 % topical gel 2 g topical QID 04/2505/08/24 History duloxetine 60 mg capsule,delayed 60 mg PO BID 05/08/24 05/08/24 History release lamotrigine 200 mg tablet 200 mg PO DAILY 05/08/24 History metoprolol succinate 50 mg 50 mg PO DAILY 05/08/24 History tablet,extended release 24 hr Allergies Allergy/AdvReac Type Severity Reaction Status Date / Time Sulfa (Sulfonamide Allergy Rash Verified 05/07/24 22:05 Antibiotics) Visit Medications Acetaminophen (Acetaminophen 325 Mg Tablet) 650 mg PO Q6H PRN PRN Reason: PAIN(1-3) OR FEVER > 100.4 Stop: 06/07/24 14:05 Hydrocodone Bitart/Acetaminophen (Hydrocodone/Apap 5/325 Tablet) 1 tab PO Q6HR PRN PRN Reason: PAIN SCALE 4-10(Mod-Sev Stop: 05/13/24 16:26 Duloxetine HCl (Duloxetine Hcl 30 Mg Capsule) 60 mg PO QDAY [facility] Stop: 06/08/24 08:59 Octreotide Acetate 1,000 mcg/ (Sodium Chloride) 102 mls @ 5.1 mls/hr IV .Q20H JANELL; Protocol Stop: 06/08/24 07:14 Octreotide Acetate 1,000 mcg/ (Sodium Chloride) 102 mls @ 5.1 mls/hr IV .Q20H ONE; Protocol Stop: 05/09/24 07:14 Ceftriaxone Sodium 1,000 mg/ (Sodium Chloride) 50 mls @ 100 mls/hr IV QDAY [facility] Stop: 05/15/24 12:22 Last Infusion: 05/08/24 13:45 Dose: Infused Metoprolol Succinate (Metoprolol Succinate Xl 25 Mg Tabcr) 50 mg PO QDAY [facility] Stop: 06/08/24 08:59 Ondansetron HCl (Ondansetron Inj 2 Mg/Ml Inj 2 Ml) 4 mg IV Q6H PRN; Protocol PRN Reason: NAUSEA OR VOMITING Stop: 06/07/24 14:07 Oxycodone HCl (Oxycodone Hcl 5 Mg Ir Tab) 5 mg PO Q6HR PRN PRN Reason: BREAKTHROUGH PAIN (MILD) Stop: 05/13/24 14:13 Pantoprazole Sodium (Pantoprazole Inj 40 Mg Vial) 40 mg IV BID JANELL Stop: 06/07/24 12:29 Last Admin: 05/08/24 13:08 Dose: 40 mg Discontinued Medications Acetaminophen (Acetaminophen 325 Mg Tablet) 650 mg PO Q6H PRN PRN Reason: PAIN OR FEVER > 100.4 Stop: 06/07/24 14:05 Piperacillin/Tazobactam/Dextrose (Zosyn) 3.375 gm in 50 mls @ 100 mls/hr IV X1 ONE Stop: 05/08/24 05:35 Last Infusion: 05/08/24 06:10 Dose: Infused Sodium Chloride (Ns) 1,641 mls @ 1,641 mls/hr 30 ml/kg infuse over 60 min (1641 ml) IV .Q1H ONE Stop: 05/08/24 06:12 Last Infusion: 05/08/24 07:20 Dose: Infused Azithromycin 500 mg/ Sodium (Chloride) 250 mls @ 250 mls/hr IV X1 ONE Stop: 05/08/24 17:08 Azithromycin 500 mg/ Sodium (Chloride) 250 mls @ 250 mls/hr IV QDAY JANELL Stop: 05/12/24 08:59 Ketorolac Tromethamine (Ketorolac Inj 30 Mg/Ml Vial) 15 mg IVP X1 ONE Stop: 05/08/24 05:16 Last Admin: 05/08/24 06:15 Dose: 15 mg Assessment & Plan Plan Leena Beasley is a 63-year-old female with a past medical history of MASH cirrhosis, hypertension, psoriatic arthritis, and depression who was admitted on 05/08 for an episode of melena. #GI bleed, likely upper versus lower in setting of varices #History of esophageal varices status post banding #Melena 1 episode of nausea, nonbloody emesis, and dark-colored bowel movement and FOBT positive. Has history of esophageal varices that were banded during EGD 4 years ago. Hemoglobin has been stable at 11. ? Gastroenterology consulted, appreciate recommendations ? N.p.o. ? Octreotide drip ? Pantoprazole IV twice daily ? SCDs for DVT prophylaxis #MASH cirrhosis #Trace ascites #? SBP Presents with increasing abdominal distention and ascites associated with abdominal tenderness as well as fever and chills. US abdomen showed trace ascitic fluid. ? Ceftriaxone 1 g IV daily #History of psoriatic arthritis Home Otezla and Skyrizi not on formulary ? [place] 5 every 6 hours ? Oxycodone 5 mg IR for breakthrough pain #History of hypertension ? Continue home metoprolol succinate 50 mg daily #History of depression ? Continue home lamotrigine 200 mg daily ? Continue home duloxetine 60 mg daily ? Given that patient has not had medications for over a month, we will start at 60 mg daily versus home 60 mg twice daily Hospital management: Disposition: GI bleed, likely upper vs lower pending GI recs Fluids: none given increased abdominal distention Diet: NPO pending EGD Lines: PIV DVT prophylaxis: SCDs given GI bleed GI prophylaxis: protonix IV BID CODE STATUS: full code ----- Plan discussed with attending physician Dr. Meek and senior resident physician Dr. Kyler Sanford MD PGY-1 Internal Medicine Attending Provider Attestation/Addendum I have examined the patient, reviewed labs and imaging findings, discussed the case with the resident(s), and reviewed entered orders. I agree with the plan of care as outlined in this note, with these additional summaries/recommendations: Patient seen at bedside. Discussed with patient that she will be admitted for GI bleed. Gastroenterology consulted, recommendations appreciated. Start IV pantoprazole 40 mg twice daily. Start octreotide drip. Start IV Rocephin for cirrhosis. Hemoglobin 11.0 on admission. Patient does have a history of esophageal varices and underlying cirrhosis. Transfuse for hemoglobin less than 7. Patient also suspected of having urinary tract infection and we will continue IV Rocephin. Continue pain management. Patient's cirrhosis is fairly well compensated except for GI bleed. No evidence of coagulopathy at this time. Lactic acidosis minimally elevated and likely type B from decreased clearance from cirrhosis. Troponin elevated to 0.051 and delta decreased to normal range. Most likely secondary to demand ischemia and no further intervention needed at this time although we will continue to monitor. Patient updated on the plan and in agreement. All questions answered to satisfaction. Continue to trend H&H and repeat hematology plus chemistry panel in AM. Dr. Gaviota MD
[2024-05-08 16:51] LABS: Magnesium 1.8 mg/dL (1.6-2.6)
[2024-05-08] MEDS: OCTREOTIDE ACET INJ 1,000 MCG in SODIUM CHLORIDE 0.9% 100 ML 5.1 MCG IV (16:56)
--- NOTE | 2024-05-08 17:13 | PD.IMCONS ---
HPI Data of Consult Requesting Physician: Brian Meek MD Primary Care Provider: Physician No Primary/Family Consult Narrative Reason for consult: Melena anemia blood loss History of present illness: 63 years old female asked by the ER physician to evaluate for melanotic stools And dropping hemoglobin hematocrit She had a CT scan of the abdomen pelvis done which shows cirrhosis of the liver ascites and colonic wall inflammation Patient has chronic pain syndrome and taking multiple pain medication and anxiety medications she also has underlying depression because of recent loss of a close family member cc:: cc: Brian Meek MD Review of Systems Review of Systems Systems Reviewed: All systems reviewed, normal except as documented Past Medical History Surgical History OTHER SURGICAL HX: As in the history of present illness Meds Home Medications and Allergies Home Medications ?Medication ?Instructions ?Recorded ?Confirmed ?Type diclofenac sodium 1 % topical gel 2 g topical QID 05/08/24 05/08/24 History duloxetine 60 mg capsule,delayed 60 mg PO BID 05/08/24 05/08/24 History release lamotrigine 200 mg tablet 200 mg PO DAILY 05/08/24 05/08/24 History metoprolol succinate 50 mg 50 mg PO DAILY 05/08/24 05/08/24 History tablet,extended release 24 hr Allergies Allergy/AdvReac Type Severity Reaction Status Date / Time Sulfa (Sulfonamide Allergy Rash Verified 05/07/24 22:05 Antibiotics) Exam Vital Signs Temp Pulse Resp BP Pulse Ox O2 Del Method 98.9 F 102 H 20 162/86 H 95 Room Air 05/08/24 15:27 05/08/24 15:27 05/08/24 15:27 05/08/24 15:27 05/08/24 15:27 05/08/24 15:27 Constitutional Comments: Chronically ill-appearing Routine Respiratory Exam Comments: Normal to auscultation Results Labs 05/09/24 05:37 05/09/24 05:37 Labs: Short CBC 05/07/24 05/08/24 Range/Units 23:30 05:30 WBC 15.0 H 16.2 H (3.6-11.0) Thou/mm3 Hgb 11.4 L 11.0 L (12.0-16.0) g/dL Hct 34.4 L 32.5 L (36.0-46.0) % Plt Count 250 281 D (140-440) Thou/mm3 BMP 05/07/24 23:30 Sodium 141 Potassium 4.0 Chloride 108 H Carbon Dioxide 20.1 BUN 27 H Creatinine 1.1 Glucose 231 H Calcium 8.7 Cardiac Enzymes 05/07/24 05/08/24 05/08/24 Range/Units 23:30 05:30 08:30 Troponin I 0.025 0.051 H* 0.043 (0.0-0.045) ng/mL Liver Function 05/07/24 Range/Units 23:30 Total Bilirubin 1.7 H (0.3-1.2) mg/dL AST 57 H (0-34) U/L ALT 42 (10-49) U/L Alkaline Phosphatase 157 H (46-116) U/L Albumin 3.5 (3.4-4.8) gm/dL Urine 05/07/24 Range/Units 04:30 Urine Color Yellow (Lt Yel-Yel) Urine Clarity Turbid A (Clear/Hazy) Urine pH 6.0 (5.0-7.0) Ur Specific [place] 1.029 (1.001-1.035) Urine Protein 1+ A (Neg - Trace) Urine Glucose (UA) Trace (Negative) Assessment and Plan Additional Assessment & Plan Additional Plan: Anemia blood loss Melena Plan N.p.o. midnight tonight except p.o. meds Consent obtained for fiberoptic esophagogastroduodenoscopy with possible biopsy possible therapeutic intervention under intravenous moderate sedation IV Protonix Transfuse as necessary Serial CBC Other medical problems include Cirrhosis most likely MOONEY cirrhosis Depression Chronic pain syndrome Thank you very much for the opportunity to participate in the care of this patient
[2024-05-08 21:19] LABS: Collection Type, Urine Voided
[2024-05-08 21:56] LABS: Bilirubin,Urine Negative (Negative); Blood,Urine Negative (Negative); Clarity,Urine Clear (Clear/Hazy); Color,Urine Lt-Yellow (Lt Yel-Yel); Glucose, Urine Negative (Negative); Ketones,Urine Negative (Negative); Leukocyte Esterase,Urine Positive (Negative); Nitrite,Urine Negative (Negative); Protein,Urine Negative (Neg - Trace); RBC,Urine 1 /hpf (0-3); Specific Gravity,Urine 1.032 (1.001-1.035); Squamous Epithelial Cell,Urine 4 /hpf (0-5); Urobilinogen,Urine Negative mg/dL (0.0-1.0); WBC,Urine 5 /hpf (0-5)
[2024-05-08 22:43] LABS: Lactate (Lactic Acid) 1.8 mMol/L (0.4-2.0)
[2024-05-09] VITALS (17 sets, daily range): BP systolic 110–226; BP diastolic 55–121; PULSE 66–96; RESP 13–20; TEMP 36.1–36.9; O2SAT 95–100
[2024-05-09] MEDS: oxyCODONE HCL 5 MG IR TAB PO (00:14)
[2024-05-09 06:00] LABS: Basophils # (Auto) 0.1 Thou/mm3 (0.0-0.2); Basophils % (Auto) 1 % (0-2.5); Eosinophils # (Auto) 0.1 Thou/mm3 (0.0-0.5); Eosinophils % (Auto) 1 % (0-10); Hematocrit 24.5 % (36.0-46.0); Immature Granulocytes % (Auto) 1 % (0-0); Lymphocytes # (Auto) 3.7 Thou/mm3 (1.0-4.8); Lymphocytes % (Auto) 33 % (10-50); Mean Corpuscular HGB Conc 32.7 g/dl (31.0-37.0); Mean Corpuscular Hemoglobin 29.7 pg (25.0-35.0); Mean Corpuscular Volume 91 fL (80-100); Monocytes # (Auto) 0.7 Thou/mm3 (0.0-0.8); Monocytes % (Auto) 6 % (0-12); Neutrophils # (Auto) 6.6 Thou/mm3 (1.8-7.7); Neutrophils % (Auto) 59 % (37-80); Nucleated Red Blood Cell % 0 /100 WBC (0); Platelet Count 179 Thou/mm3 (140-440); RDW Standard Deviation 47.9 fL (36.4-46.3); Red Blood Count 2.69 Miln/mm3 (4.00-5.20); White Blood Count 11.2 Thou/mm3 (3.6-11.0)
[2024-05-09 06:40] LABS: Alanine Aminotransferase 39 U/L (10-49); Albumin, Serum 3.1 gm/dL (3.4-4.8); Albumin/Globulin Ratio 1.3 (1.2-2.2); Alkaline Phosphatase 117 U/L (46-116); Anion Gap 9 (7-16); Aspartate Amino Transferase 56 U/L (0-34); BUN/Creatinine Ratio 34 Ratio (12-20); Bilirubin,Total 1.2 mg/dL (0.3-1.2); Blood Urea Nitrogen 31 mg/dL (9-23); Calcium 8.4 mg/dL (8.3-10.6); Calcium (Corrected) 9.1 mg/dL (8.5-10.1); Carbon Dioxide 21.8 mMol/L (20.0-31.0); Cardiac Risk Estimate 3.1 RATIO (3.7-5.6); Chloride 115 mMol/L (98-107); Cholesterol 111 mg/dL (132-200); Creatinine (Component) 0.9 mg/dL (0.6-1.3); Estimated Creatinine Clearance 66.1 mL/min (>60); Globulin 2.4 gm/dL (2.3-3.5); Glucose 166 mg/dL (74-106); HDL Cholesterol 36 mg/dL (40-60); LDL Cholesterol,Calculated 50 mg/dL (0-130); Magnesium 1.9 mg/dL (1.6-2.6); Osmolality,Calculated 301 (275-295); Phosphorous 2.9 mg/dL (2.4-5.1); Potassium 4.2 mMol/L (3.4-5.1); Sodium 146 mMol/L (136-145); Thyroid Stimulating Hormone 0.35 uIU/mL (0.55-4.78); Total Protein 5.5 gm/dL (5.7-8.2); Triglycerides 123 mg/dL (30-150); eGFR > 60 See Note
[2024-05-09] MEDS: OCTREOTIDE ACET INJ 1,000 MCG in SODIUM CHLORIDE 0.9% 100 ML 5.1 MCG IV (07:40)
[2024-05-09 08:55] LABS: Free T4 (Free Thyroxine) 0.99 ng/dL (0.89-1.76)
[2024-05-09] MEDS: PANTOPRAZOLE INJ 40 MG VIAL IV ×2 (09:53→21:13)
[2024-05-09] MEDS: cefTRIAXone 1,000 MG in SODIUM CHLORIDE 0.9% (Popper) 50 ML 100 MG IV (09:53)
[2024-05-09] MEDS: DULoxetine HCL 30 MG CAPSULE 60 MG PO (09:55)
[2024-05-09] MEDS: lamoTRIgine 25 MG CHEW 200 MG PO (09:55)
[2024-05-09] MEDS: METOPROLOL SUCCINATE XL 25 MG TABCR 50 MG PO (09:56)
[2024-05-09] MEDS: Magnesium Sulfate 2 GM Ivpb 2 GM/50 ML BAG IV (10:31)
--- NOTE | 2024-05-09 12:20 | ESPR_ITS ---
Documentation for date of: 05/09/24 Subjective Subjective Interval history: Leena Beasley is a 63-year-old female with a past medical history of MASH cirrhosis, hypertension, psoriatic arthritis, and depression who presents on 05/08 for progressive abdominal distention and pain for 2 weeks duration and an episode of melena 1 day prior and admitted for management of GI bleed. 05/09: Seen and examined at bedside in telemetry. No acute overnight events reported. States that pain is much improved compared to yesterday and no fevers, chills, sweats, nausea, vomiting, or bloody BMs since admission. Exam Vital Signs Temp Pulse Resp BP Pulse Ox O2 Del Method 97.1 F 81 17 151/76 H 100 Room Air 05/09/24 08:00 05/09/24 09:56 05/09/24 08:00 05/09/24 09:56 05/09/24 08:00 05/09/24 08:00 Narrative Exam General: AOx3, in mild distress from pain, able to speak full sentences HEENT: NC/AT, mucous membranes moist, bilateral sclera anicteric Cardiovascular: regular rate and rhythm, S1/S2 present, no murmurs appreciated Pulmonary: clear to auscultation bilaterally, no rales/rhonchi/wheezes Abdominal: tender to palpation, soft, mildly distended, no rebound/guarding, normal bowel sounds present Musculoskeletal: normal ROM, no peripheral edema Skin: warm and dry, intact, no rashes Neuro: CN II-XII intact, no focal deficits Objective Labs 05/09/24 12:14 05/09/24 05:37 Labs: Laboratory Results - last 24 hr 05/08/24 05/08/24 05/08/24 13:19 14:44 20:05 WBC RBC Hgb Hct MCV MCH MCHC RDW Std Deviation Plt Count Neut % (Auto) Lymph % (Auto) Schle[place] % (Auto) Eos % (Auto) Baso % (Auto) Neut # (Auto) Lymph # (Auto) [place]icher # (Auto) Eos # (Auto) Baso # (Auto) Immature Gran # (Auto) Absolute Nucleated RBC Immature Gran % Nucleated RBC % Sodium Potassium Chloride Carbon Dioxide Anion Gap BUN Creatinine Estim Creat Clear Calc eGFR BUN/Creatinine Ratio Glucose Calculated Osmolality Lactic Acid Calcium Corrected Calcium Phosphorus 3.0 Magnesium 1.8 Total Bilirubin AST ALT Alkaline Phosphatase Total Protein Albumin Globulin Albumin/Globulin Ratio Triglycerides Cholesterol LDL Cholesterol, Calc HDL Cholesterol Cholesterol/HDL Ratio TSH Free T4 Ur Collection Type Voided Urine Color Lt-Yellow Urine Clarity Clear Urine pH 6.0 Ur Specific [place] 1.032 Urine Protein Negative Urine Glucose (UA) Negative Urine Ketones Negative Urine Blood Negative Urine Nitrite Negative Urine Bilirubin Negative Urine Urobilinogen (Auto) Negative Ur Leukocyte Esterase Positive Urine RBC 1 Urine WBC 5 Ur Squamous Epith Cells 4 Urine Bacteria None Blood Type A Negative Antibody Screen NEGATIVE Crossmatch See Detail Blood Bank Wristband ID Yes 05/08/24 05/09/24 22:35 05:37 WBC 11.2 H D RBC 2.69 L Hgb 8.0 L D Hct 24.5 L MCV 91 MCH 29.7 MCHC 32.7 RDW Std Deviation 47.9 H Plt Count 179 D Neut % (Auto) 59 Lymph % (Auto) 33 Schleicher % (Auto) 6 Eos % (Auto) 1 Baso % (Auto) 1 Neut # (Auto) 6.6 Lymph # (Auto) 3.7 [place] # (Auto) 0.7 Eos # (Auto) 0.1 Baso # (Auto) 0.1 Immature Gran # (Auto) 0.10 H Absolute Nucleated RBC 0.00 Immature Gran % 1 H Nucleated RBC % 0 Sodium 146 H Potassium 4.2 Chloride 115 H Carbon Dioxide 21.8 Anion Gap 9 BUN 31 H Creatinine 0.9 Estim Creat Clear Calc 66.1 eGFR > 60 BUN/Creatinine Ratio 34 H Glucose 166 H D Calculated Osmolality 301 H Lactic Acid 1.8 Calcium 8.4 Corrected Calcium 9.1 Phosphorus 2.9 Magnesium 1.9 Total Bilirubin 1.2 D AST 56 H ALT 39 Alkaline Phosphatase 117 H D Total Protein 5.5 L Albumin 3.1 L Globulin 2.4 Albumin/Globulin Ratio 1.3 Triglycerides 123 Cholesterol 111 L LDL Cholesterol, Calc 50 HDL Cholesterol 36 L Cholesterol/HDL Ratio 3.1 L TSH 0.35 L Free T4 0.99 Ur Collection Type Urine Color Urine Clarity Urine pH Ur Specific [place] Urine Protein Urine Glucose (UA) Urine Ketones Urine Blood Urine Nitrite Urine Bilirubin Urine Urobilinogen (Auto) Ur Leukocyte Esterase Urine RBC Urine WBC Ur Squamous Epith Cells Urine Bacteria Blood Type Antibody Screen Crossmatch Blood Bank Wristband ID Quality Measures Quality Measures sepsis Current suspected stage: ruled out Possible source: GI tract/intra- abdominal Blood cultures ordered: yes Antibiotic ordered: Yes and none Assessment & Plan Assessment Current Active Medications: Generic Name Dose Route Start Last Admin Trade Name Freq PRN Reason Stop Dose Admin Acetaminophen 650 mg 05/08/24 16:30 Acetaminophen 325 Mg Tablet PO 06/07/24 14:05 Q6H PRN PAIN(1-3) OR FEVER > 100.4 Hydrocodone Bitart/Acetaminophen 1 tab 05/08/24 16:27 Hydrocodone/Apap 5/325 Tablet PO 05/13/24 16:26 Q6HR PRN PAIN SCALE 4-10(Mod-Sev Duloxetine HCl 60 mg 05/09/24 09:00 05/09/24 09:55 Duloxetine Hcl 30 Mg Capsule PO 06/08/24 08:59 60 mg QDAY JANELL Administration Octreotide Acetate 1,000 mcg/ 102 mls @ 5.1 mls/hr 05/09/24 07:15 05/09/24 07:40 Sodium Chloride IV 06/08/24 07:14 50 mcg/hr .Q20H JANELL 5.1 mls/hr Administration Protocol 50 MCG/HR Ceftriaxone Sodium 1,000 mg/ 50 mls @ 100 mls/hr 05/08/24 12:23 05/09/24 09:53 Sodium Chloride IV 05/15/24 12:22 100 mls/hr QDAY JANELL Administration Lamotrigine 200 mg 05/09/24 09:00 05/09/24 09:55 Lamotrigine 25 Mg Chew PO 06/08/24 08:59 200 mg DAILY JANELL Administration Metoprolol Succinate 50 mg 05/09/24 09:00 05/09/24 09:56 Metoprolol Succinate Xl 25 Mg Tabcr PO 06/08/24 08:59 50 mg QDAY JANELL Administration Ondansetron HCl 4 mg 05/08/24 14:08 Ondansetron Inj 2 Mg/Ml Inj 2 Ml IV 06/07/24 14:07 Q6H PRN NAUSEA OR VOMITING Protocol Oxycodone HCl 5 mg 05/08/24 14:14 05/09/24 00:14 Oxycodone Hcl 5 Mg Ir Tab PO 05/13/24 14:13 5 mg Q6HR PRN Administration BREAKTHROUGH PAIN (MILD) Pantoprazole Sodium 40 mg 05/08/24 12:30 05/09/24 09:53 Pantoprazole Inj 40 Mg Vial IV 06/07/24 12:29 40 mg BID [facility] Administration Plan Leena Beasley is a 63-year-old female with a past medical history of MASH cirrhosis, hypertension, psoriatic arthritis, and depression who was admitted on 05/08 for an episode of melena. #GI bleed, likely upper versus lower in setting of varices #History of esophageal varices status post banding #Melena 1 episode of nausea, nonbloody emesis, and dark-colored bowel movement and FOBT positive. Has history of esophageal varices that were banded during EGD 4 years ago. Hemoglobin decreased from 11 to 8.0, repeat showed 8.2. ? Gastroenterology consulted, appreciate recommendations ? Pending EGD ? N.p.o. ? Octreotide drip ? Pantoprazole IV twice daily ? SCDs for DVT prophylaxis #MASH cirrhosis #Trace ascites #? SBP Presents with increasing abdominal distention and ascites associated with abdominal tenderness as well as fever and chills. US abdomen showed trace ascitic fluid. ? Ceftriaxone 1 g IV daily #History of psoriatic arthritis Home Otezla and Skyrizi not on formulary ? [place] 5 every 6 hours ? Oxycodone 5 mg IR for breakthrough pain #History of hypertension ? Continue home metoprolol succinate 50 mg daily #History of depression ? Continue home lamotrigine 200 mg daily ? Continue home duloxetine 60 mg daily ? Given that patient has not had medications for over a month, we will start at 60 mg daily versus home 60 mg twice daily Hospital management: Disposition: GI bleed, likely upper vs lower, pending GI recs Fluids: none given increased abdominal distention Diet: NPO pending EGD Lines: PIV DVT prophylaxis: SCDs given GI bleed GI prophylaxis: protonix IV BID CODE STATUS: full code ----- Plan discussed with attending physician Dr. Durant and senior resident physician Dr. Kyler Sanford MD PGY-1 Internal Medicine Attending Provider Attestation/Addendum I have examined the patient, reviewed labs and imaging findings, discussed the case with the resident(s), and reviewed entered orders. I agree with the plan of care as outlined in this note, with these additional summaries/recommendations: Patient underwent EGD today which showed variceal bleeding status post banding. Will transition patient to propranolol for secondary prevention and continue to monitor closely with serial H&H's. Patient complaining of some pain after procedure and rep response was called, given Maalox, vital signs otherwise stable at this time possibly just pain after the procedure. Continue monitor vital signs closely and H&H, upright KUB if patient decompensates. Asif Durant MD
[2024-05-09 12:32] LABS: Hematocrit 24.9 % (36.0-46.0)
[2024-05-09 13:02] LABS: Hemoglobin 8.2 g/dL (12.0-16.0)
[2024-05-09] MEDS: hydrALAZINE INJ 20 MG/ML VIAL 10 MG IV (14:38)
--- NOTE | 2024-05-09 14:49 | SUR.PHASEI ---
1401 patient to pacu via gurney, bp elevated remaining vss, patient drowsy easily arousable with verbal stimuli will monitor 1430 Dr Trevizo contacted aware of elevated BP, new orders to be implemented 1451 bp within normal limits for patient, stable transfer to telemetry
--- NOTE | 2024-05-09 15:12 | SUR.PHASEI ---
1451 patient to telemetry in stable condition
[2024-05-09] MEDS: HYDROcodone/APAP 5/325 TABLET 1 TAB PO (15:57)
--- NOTE | 2024-05-09 15:57 | EKG_ITS ---
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
[2024-05-09] MEDS: MG HYD/AL HYD/SIME (Maalox Reg) SUSP 30 ML UDC PO (16:01)
--- NOTE | 2024-05-09 16:25 | EVENTNT_ITS ---
<Statement entered by Reynaldo Chávez MD - 05/09/24 16:37> I saw and examined the patient, and I agree with current management stated by Dr Claribel MD,PGY1. Plan of care was discussed with the attending physician and resident physician. Disclaimer: Despite multiple revisions, due to the dictation software being used, the document bellow may not be free of grammatical errors including phonetic/typographic errors. However, this does not deter from our commitment to providing health care in the patient's best interest in mind. Dr. Kyler MD, PGY 2 Documentation for date of: 05/09/24 Event Note Event Note: Rapid response called at approximately 3:45 PM as patient was complaining of chest tightness. Patiently had just returned from her EGD 40 minutes prior and states that she had a similar pain from her previous EGDs. States the pain was substernal, 6 out of 10 in intensity, did not radiate to her arms or neck and did not endorse nausea or vomiting. Chest tender to palpation and with deep inspiration. Otherwise, vitals showed BP 175/81, HR 78, RR 20, O2 100% on RA. Although unlikely cardiac in origin, will order EKG and troponin to rule out ACS. EKG did not show any ST changes and troponin negative. Ordered [place] and Maalox due to the pain without relief, thus ordered sucralfate and will observe for improvement. If pain continues to worsen, will order imaging and further labs. ----- Plan discussed with attending physician Dr. Durant and senior resident physician Dr. Kyler Sanford MD PGY-1 Internal Medicine
[2024-05-09 16:36] LABS: Troponin I < 0.020 ng/mL (0.0-0.045)
[2024-05-09] MEDS: PROPRANOLOL 10 MG TABLET PO (17:59)
[2024-05-09] MEDS: SUCRALFATE SUSP 1 GM/10 ML UDC PO ×2 (18:00→21:13)
[2024-05-10] VITALS (9 sets, daily range): BP systolic 107–147; BP diastolic 50–75; PULSE 53–71; RESP 12–19; TEMP 36.4–36.9; O2SAT 97–99
[2024-05-10] MEDS: SUCRALFATE SUSP 1 GM/10 ML UDC PO ×3 (05:21→21:49)
[2024-05-10] MEDS: OCTREOTIDE ACET INJ 1,000 MCG in SODIUM CHLORIDE 0.9% 100 ML 5.1 MCG IV (05:21)
[2024-05-10 05:47] LABS: Basophils % (Auto) 1 % (0-2.5); Eosinophils # (Auto) 0.1 Thou/mm3 (0.0-0.5); Eosinophils % (Auto) 2 % (0-10); Hematocrit 25.3 % (36.0-46.0); Immature Granulocytes % (Auto) 1 % (0-0); Immature Granulocytes Auto 0.06 Thou/mm3 (0.00-0.00); Lymphocytes # (Auto) 2.8 Thou/mm3 (1.0-4.8); Lymphocytes % (Auto) 31 % (10-50); Mean Corpuscular HGB Conc 32.8 g/dl (31.0-37.0); Mean Corpuscular Hemoglobin 30.2 pg (25.0-35.0); Mean Corpuscular Volume 92 fL (80-100); Monocytes # (Auto) 0.6 Thou/mm3 (0.0-0.8); Monocytes % (Auto) 7 % (0-12); Neutrophils # (Auto) 5.2 Thou/mm3 (1.8-7.7); Neutrophils % (Auto) 59 % (37-80); Nucleated Red Blood Cell % 0 /100 WBC (0); Platelet Count 164 Thou/mm3 (140-440); RDW Standard Deviation 47.7 fL (36.4-46.3); Red Blood Count 2.75 Miln/mm3 (4.00-5.20); White Blood Count 8.8 Thou/mm3 (3.6-11.0)
[2024-05-10 05:48] LABS: Hemoglobin 8.3 g/dL (12.0-16.0)
[2024-05-10 06:15] LABS: Alanine Aminotransferase 56 U/L (10-49); Albumin, Serum 3.2 gm/dL (3.4-4.8); Albumin/Globulin Ratio 1.3 (1.2-2.2); Alkaline Phosphatase 125 U/L (46-116); Anion Gap 7 (7-16); Aspartate Amino Transferase 91 U/L (0-34); BUN/Creatinine Ratio 22 Ratio (12-20); Bilirubin,Total 1.1 mg/dL (0.3-1.2); Blood Urea Nitrogen 20 mg/dL (9-23); Calcium 8.2 mg/dL (8.3-10.6); Calcium (Corrected) 8.8 mg/dL (8.5-10.1); Carbon Dioxide 24.9 mMol/L (20.0-31.0); Chloride 110 mMol/L (98-107); Creatinine (Component) 0.9 mg/dL (0.6-1.3); Estimated Creatinine Clearance 66.1 mL/min (>60); Globulin 2.5 gm/dL (2.3-3.5); Glucose 145 mg/dL (74-106); Magnesium 2.1 mg/dL (1.6-2.6); Osmolality,Calculated 288 (275-295); Phosphorous 2.8 mg/dL (2.4-5.1); Potassium 4.2 mMol/L (3.4-5.1); Sodium 142 mMol/L (136-145); Total Protein 5.7 gm/dL (5.7-8.2); eGFR > 60 See Note
[2024-05-10] MEDS: cefTRIAXone 1,000 MG in SODIUM CHLORIDE 0.9% (Popper) 50 ML 100 MG IV (09:24)
[2024-05-10] MEDS: PROPRANOLOL 10 MG TABLET PO ×2 (09:25→20:40)
[2024-05-10] MEDS: DULoxetine HCL 30 MG CAPSULE 60 MG PO (09:25)
[2024-05-10] MEDS: oxyCODONE HCL 5 MG IR TAB PO (09:25)
[2024-05-10] MEDS: lamoTRIgine 25 MG CHEW 200 MG PO (09:25)
[2024-05-10] MEDS: PANTOPRAZOLE INJ 40 MG VIAL IV ×2 (09:26→20:39)
[2024-05-10] MEDS: LOSARTAN POTASSIUM 25 MG TABLET PO (09:26)
--- NOTE | 2024-05-10 13:11 | ESPR_ITS ---
Documentation for date of: 05/10/24 Subjective Subjective Interval history: Patient seen and examined at bedside. Reports an improvement in substernal chest pain and tightness this morning, likely the result of variceal banding. She denies any additional episodes of vomiting, hematemesis, blood in stool. She is tolerating medications well and has no acute complaints. Hemodynamically stable and tolerating clear liquid diet well Exam Vital Signs Temp Pulse Resp BP Pulse Ox O2 Del Method O2 Flow Rate 97.8 F 53 L 16 125/75 99 Room Air 3 05/10/24 12:00 05/10/24 12:05/10/24 12:05/10/24 12:05/10/24 12:05/10/24 12:05/09/24 14:16 Narrative Exam General: AOx3, in mild distress from pain, able to speak full sentences HEENT: NC/AT, mucous membranes moist, bilateral sclera anicteric Cardiovascular: regular rate and rhythm, S1/S2 present, no murmurs appreciated Pulmonary: clear to auscultation bilaterally, no rales/rhonchi/wheezes Abdominal: tender to palpation, soft, mildly distended, no rebound/guarding, normal bowel sounds present Musculoskeletal: normal ROM, no peripheral edema Skin: warm and dry, intact, no rashes Neuro: CN II-XII intact, no focal deficits Objective Labs 05/10/24 04:30 05/10/24 04:30 Labs: Laboratory Results - last 24 hr 05/09/24 05/10/24 15:59 04:30 WBC 8.8 RBC 2.75 L Hgb 8.3 L Hct 25.3 L MCV 92 MCH 30.2 MCHC 32.8 RDW Std Deviation 47.7 H Plt Count 164 Neut % (Auto) 59 Lymph % (Auto) 31 [place] % (Auto) 7 Eos % (Auto) 2 Baso % (Auto) 1 Neut # (Auto) 5.2 Lymph # (Auto) 2.8 [place] # (Auto) 0.6 Eos # (Auto) 0.1 Baso # (Auto) 0.0 Immature Gran # (Auto) 0.06 H Absolute Nucleated RBC 0.00 Immature Gran % 1 H Nucleated RBC % 0 Sodium 142 Potassium 4.2 Chloride 110 H Carbon Dioxide 24.9 Anion Gap 7 BUN 20 Creatinine 0.9 Estim Creat Clear Calc 66.1 eGFR > 60 BUN/Creatinine Ratio 22 H Glucose 145 H Calculated Osmolality 288 Calcium 8.2 L Corrected Calcium 8.8 Phosphorus 2.8 Magnesium 2.1 Total Bilirubin 1.1 AST 91 H ALT 56 H Alkaline Phosphatase 125 H Troponin I < 0.020 Total Protein 5.7 Albumin 3.2 L Globulin 2.5 Albumin/Globulin Ratio 1.3 Quality Measures Quality Measures sepsis Current suspected stage: sepsis Possible source: GI tract/intra-abdominal Blood cultures ordered: yes Antibiotic ordered: Yes Assessment & Plan Assessment Current Active Medications: Generic Name Dose Route Start Last Admin Trade Name Freq PRN Reason Stop Dose Admin Acetaminophen 650 mg 05/08/24 16:30 Acetaminophen 325 Mg Tablet PO 06/07/24 14:05 Q6H PRN PAIN(1-3) OR FEVER > 100.4 Hydrocodone Bitart/Acetaminophen 1 tab 05/08/24 16:27 05/09/24 15:57 Hydrocodone/Apap 5/325 Tablet PO 05/13/24 16:26 1 tab Q6HR PRN Administration PAIN SCALE 4-10(Mod-Sev Al Hydrox/Mg Hydrox/Simethicone 30 ml 05/09/24 15:57 Mg Hyd/Al Hyd/Anna (Maalox Reg) Susp 30 Ml Udc PO 06/08/24 15:56 QID PRN UPSET STOMACH/INDIGESTION Duloxetine HCl 60 mg 05/09/24 09:00 05/10/24 09:25 Duloxetine Hcl 30 Mg Capsule PO 06/08/24 08:59 60 mg QDAY JANELL Administration Octreotide Acetate 1,000 mcg/ 102 mls @ 5.1 mls/hr 05/09/24 07:15 05/10/24 05:21 Sodium Chloride IV 05/14/24 07:14 50 mcg/hr .Q20H JANELL 5.1 mls/hr Administration Protocol 50 MCG/HR Ceftriaxone Sodium 1,000 mg/ 50 mls @ 100 mls/hr 05/08/24 12:23 05/10/24 09:24 Sodium Chloride IV 05/15/24 12:22 100 mls/hr QDAY JANELL Administration Lamotrigine 200 mg 05/09/24 09:00 05/10/24 09:25 Lamotrigine 25 Mg Chew PO 06/08/24 08:59 200 mg DAILY JANELL Administration Losartan Potassium 25 mg 05/10/24 09:00 05/10/24 09:26 Losartan Potassium 25 Mg Tablet PO 06/09/24 08:59 25 mg QDAY JANELL Administration Ondansetron HCl 4 mg 05/08/24 14:08 Ondansetron Inj 2 Mg/Ml Inj 2 Ml IV 06/07/24 14:07 Q6H PRN NAUSEA OR VOMITING Protocol Oxycodone HCl 5 mg 05/08/24 14:14 05/10/24 09:25 Oxycodone Hcl 5 Mg Ir Tab PO 05/13/24 14:13 5 mg Q6HR PRN Administration BREAKTHROUGH PAIN (MILD) Pantoprazole Sodium 40 mg 05/08/24 12:30 05/10/24 09:26 Pantoprazole Inj 40 Mg Vial IV 06/07/24 12:29 40 mg BID JANELL Administration Propranolol HCl 10 mg 05/09/24 18:00 05/10/24 09:25 Propranolol 10 Mg Tablet PO 06/08/24 17:59 10 mg BID JANELL Administration Sucralfate 1 gm 05/09/24 18:00 05/10/24 05:21 Sucralfate Susp 1 Gm/10 Ml Udc PO 06/08/24 17:59 1 gm TID JANELL Administration Plan Cristofer Beasley is a 63-year-old female with a past medical history of MASH cirrhosis, hypertension, psoriatic arthritis, and depression who was admitted on 05/08 for an episode of melena. #GI bleed, due to esophageal varices #History of esophageal varices status post banding #Melena #Esophageal varices s/p banding per EGD on 05/09 1 episode of nausea, nonbloody emesis, and dark-colored bowel movement and FOBT positive. Has history of esophageal varices that were banded during EGD 4 years ago. Hemoglobin stable at 8.3 EGD showed grade 3 esophageal varices. Banded. Esophageal ulcers with oozing blood. Erythematous mucosa in the antrum. ? Continue octreotide for total 5 days per GI recs, 2 more days for completion ? Gastroenterology consulted, appreciate recommendations ? Maalox and sucralfate as needed ? Added propranolol 10 mg twice daily ? Pantoprazole IV twice daily ? SCDs for DVT prophylaxis #MASH cirrhosis #Trace ascites #? SBP Presents with increasing abdominal distention and ascites associated with abdominal tenderness as well as fever and chills. US abdomen showed trace ascitic fluid. ? Continuing ceftriaxone 1 g IV daily #History of psoriatic arthritis Home Otezla and Skyrizi not on formulary ? [place] 5 every 6 hours ? Oxycodone 5 mg IR for breakthrough pain #History of hypertension ? Metoprolol succinate was discontinued due to bradycardia ? Continue propranolol 10 mg twice daily #History of depression ? Continue home lamotrigine 200 mg daily ? Continue home duloxetine 60 mg daily ? Given that patient has not had medications for over a month, we will start at 60 mg daily versus home 60 mg twice daily Hospital management: Disposition: Patient is admitted for management of esophageal varices status post banding. Continuing octreotide for 2 more days. Fluids: none given increased abdominal distention Diet: Clear liquid diet Lines: PIV DVT prophylaxis: SCDs given GI bleed GI prophylaxis: protonix IV BID CODE STATUS: full code Patient was seen and discussed with attending physician, Dr. Bhargav Chávez MD, PGY 2 Attending Provider Attestation/Addendum I have examined the patient, reviewed labs and imaging findings, discussed the case with the resident(s), and reviewed entered orders. I agree with the plan of care as outlined in this note. Patient appears much improved today. Hemoglobin and vital signs remained stable. Patient still on octreotide drip, pending 2 more days of completion and continued monitoring of hemoglobin and hematocrit for signs of bleeding. Anticipate discharge in next 48 hours. Asif Durant MD
--- NOTE | 2024-05-10 18:24 | ESPR_ITS ---
Documentation for date of: 05/10/24 Subjective Subjective Interval history: Patient evaluated Hemoglobin hematocrit 8.3 and 25.3 Patient status post band ligation of the esophageal varices 3 bands were put in Exam Vital Signs Temp Pulse Resp BP Pulse Ox O2 Del Method O2 Flow Rate 97.5 F 59 L 17 107/55 L 97 Room Air 3 05/10/24 16:00 05/10/24 16:00 05/10/24 16:00 05/10/24 16:00 05/10/24 16:00 05/10/24 16:00 05/10/24 16:00 Objective Labs 05/10/24 04:30 05/10/24 04:30 Labs: Laboratory Results - last 24 hr 05/10/24 04:30 WBC 8.8 RBC 2.75 L Hgb 8.3 L Hct 25.3 L MCV 92 MCH 30.2 MCHC 32.8 RDW Std Deviation 47.7 H Plt Count 164 Neut % (Auto) 59 Lymph % (Auto) 31 [place] % (Auto) 7 Eos % (Auto) 2 Baso % (Auto) 1 Neut # (Auto) 5.2 Lymph # (Auto) 2.8 [place] # (Auto) 0.6 Eos # (Auto) 0.1 Baso # (Auto) 0.0 Immature Gran # (Auto) 0.06 H Absolute Nucleated RBC 0.00 Immature Gran % 1 H Nucleated RBC % 0 Sodium 142 Potassium 4.2 Chloride 110 H Carbon Dioxide 24.9 Anion Gap 7 BUN 20 Creatinine 0.9 Estim Creat Clear Calc 66.1 eGFR > 60 BUN/Creatinine Ratio 22 H Glucose 145 H Calculated Osmolality 288 Calcium 8.2 L Corrected Calcium 8.8 Phosphorus 2.8 Magnesium 2.1 Total Bilirubin 1.1 AST 91 H ALT 56 H Alkaline Phosphatase 125 H Total Protein 5.7 Albumin 3.2 L Globulin 2.5 Albumin/Globulin Ratio 1.3 Impressions Impression: Esophageal variceal bleeding requiring band ligation of the esophageal varices Hypertensive portal gastropathy with mucosal oozing of blood Continue octreotide infusion Assessment & Plan A&P Narrative Anemia blood loss Melena Plan N.p.o. midnight tonight except p.o. meds Consent obtained for fiberoptic esophagogastroduodenoscopy with possible biopsy possible therapeutic intervention under intravenous moderate sedation IV Protonix Transfuse as necessary Serial CBC Other medical problems include Cirrhosis most likely MOONEY cirrhosis Depression Chronic pain syndrome Thank you very much for the opportunity to participate in the care of this patient Time Spent With Patient Time: Total time spent is greater than 50% in coordination of care (as documented) at patient's floor/unit and/or counseling patient:
[2024-05-11] VITALS (11 sets, daily range): BP systolic 103–145; BP diastolic 59–82; PULSE 58–86; RESP 13–21; TEMP 36.2–36.4; O2SAT 93–100; BMI 34.2; BMI 34.0
[2024-05-11] MEDS: OCTREOTIDE ACET INJ 1,000 MCG in SODIUM CHLORIDE 0.9% 100 ML 5.1 MCG IV ×2 (02:03→19:57)
[2024-05-11 07:55] LABS: Basophils # (Auto) 0.1 Thou/mm3 (0.0-0.2); Basophils % (Auto) 1 % (0-2.5); Eosinophils # (Auto) 0.1 Thou/mm3 (0.0-0.5); Eosinophils % (Auto) 1 % (0-10); Hematocrit 27.2 % (36.0-46.0); Immature Granulocytes % (Auto) 0 % (0-0); Immature Granulocytes Auto 0.04 Thou/mm3 (0.00-0.00); Lymphocytes # (Auto) 3.5 Thou/mm3 (1.0-4.8); Lymphocytes % (Auto) 32 % (10-50); Mean Corpuscular HGB Conc 33.1 g/dl (31.0-37.0); Mean Corpuscular Hemoglobin 30.1 pg (25.0-35.0); Mean Corpuscular Volume 91 fL (80-100); Monocytes # (Auto) 0.7 Thou/mm3 (0.0-0.8); Monocytes % (Auto) 6 % (0-12); Neutrophils # (Auto) 6.6 Thou/mm3 (1.8-7.7); Neutrophils % (Auto) 60 % (37-80); Nucleated Red Blood Cell % 0 /100 WBC (0); Platelet Count 222 Thou/mm3 (140-440); RDW Standard Deviation 45.3 fL (36.4-46.3); Red Blood Count 2.99 Miln/mm3 (4.00-5.20)
--- NOTE | 2024-05-11 08:01 | ESPR_ITS ---
Documentation for date of: 05/11/24 Subjective Subjective Interval history: Patient seen and examined at bedside this morning. No acute overnight events. Vitals stable, labs reviewed. Hemoglobin 9.0, up from 8.3. CHEM panel unremarkable, with LFTs downtrending and mild increase in T. bili, 1.4. Patient to complete 5 days of octreotide, with day 5 on 05/12. At bedside, complaints but is worried about her prognosis. She was counseled and advised to follow-up with her network infrastructure architect outpatient once she is stable for discharge. Exam Vital Signs Temp Pulse Resp BP Pulse Ox O2 Del Method O2 Flow Rate 97.1 F 69 13 127/68 98 Room Air 3 05/11/24 04:00 05/11/24 04:00 05/11/24 04:00 05/11/24 04:00 05/11/24 04:00 05/11/24 00:00 05/10/24 16:00 Narrative Exam General: AOx3, in mild distress from pain, able to speak full sentences HEENT: NC/AT, mucous membranes moist, bilateral sclera anicteric Cardiovascular: regular rate and rhythm, S1/S2 present, no murmurs appreciated Pulmonary: clear to auscultation bilaterally, no rales/rhonchi/wheezes Abdominal: tender to palpation, soft, mildly distended, no rebound/guarding, normal bowel sounds present Musculoskeletal: normal ROM, no peripheral edema Skin: warm and dry, intact, no rashes Neuro: CN II-XII intact, no focal deficits Psych: tearful, sad Objective Labs 05/11/24 07:36 05/11/24 07:36 Labs: Laboratory Results - last 24 hr 05/11/24 07:36 WBC 11.0 RBC 2.99 L Hgb 9.0 L Hct 27.2 L MCV 91 MCH 30.1 MCHC 33.1 RDW Std Deviation 45.3 Plt Count 222 D Neut % (Auto) 60 Lymph % (Auto) 32 [place] % (Auto) 6 Eos % (Auto) 1 Baso % (Auto) 1 Neut # (Auto) 6.6 Lymph # (Auto) 3.5 [place] # (Auto) 0.7 Eos # (Auto) 0.1 Baso # (Auto) 0.1 Immature Gran # (Auto) 0.04 H Absolute Nucleated RBC 0.00 Immature Gran % 0 Nucleated RBC % 0 Quality Measures Quality Measures VTE prophylaxis (SCDs) Assessment & Plan Assessment Current Active Medications: Generic Name Dose Route Start Last Admin Trade Name Freq PRN Reason Stop Dose Admin Acetaminophen 650 mg 05/08/24 16:30 Acetaminophen 325 Mg Tablet PO 06/07/24 14:05 Q6H PRN PAIN(1-3) OR FEVER > 100.4 Hydrocodone Bitart/Acetaminophen 1 tab 05/08/24 16:27 05/09/24 15:57 Hydrocodone/Apap 5/325 Tablet PO 05/13/24 16:26 1 tab Q6HR PRN Administration PAIN SCALE 4-10(Mod-Sev Al Hydrox/Mg Hydrox/Simethicone 30 ml 05/09/24 15:57 Mg Hyd/Al Hyd/Anna (Maalox Reg) Susp 30 Ml Udc PO 06/08/24 15:56 QID PRN UPSET STOMACH/INDIGESTION Duloxetine HCl 60 mg 05/09/24 09:00 05/10/24 09:25 Duloxetine Hcl 30 Mg Capsule PO 06/08/24 08:59 60 mg QDAY JANELL Administration Octreotide Acetate 1,000 mcg/ 102 mls @ 5.1 mls/hr 05/09/24 07:15 05/11/24 02:03 Sodium Chloride IV 05/14/24 07:14 50 mcg/hr .Q20H JANELL 5.1 mls/hr Administration Protocol 50 MCG/HR Ceftriaxone Sodium 1,000 mg/ 50 mls @ 100 mls/hr 05/08/24 12:23 05/10/24 09:54 Sodium Chloride IV 05/15/24 12:22 Infused QDAY JANELL Infusion Lamotrigine 200 mg 05/09/24 09:00 05/10/24 09:25 Lamotrigine 25 Mg Chew PO 06/08/24 08:59 200 mg DAILY JANELL Administration Losartan Potassium 25 mg 05/10/24 09:00 05/10/24 09:26 Losartan Potassium 25 Mg Tablet PO 06/09/24 08:59 25 mg QDAY JANELL Administration Ondansetron HCl 4 mg 05/08/24 14:08 Ondansetron Inj 2 Mg/Ml Inj 2 Ml IV 06/07/24 14:07 Q6H PRN NAUSEA OR VOMITING Protocol Oxycodone HCl 5 mg 05/08/24 14:14 05/10/24 09:25 Oxycodone Hcl 5 Mg Ir Tab PO 05/13/24 14:13 5 mg Q6HR PRN Administration BREAKTHROUGH PAIN (MILD) Pantoprazole Sodium 40 mg 05/08/24 12:30 05/10/24 20:39 Pantoprazole Inj 40 Mg Vial IV 06/07/24 12:29 40 mg BID JANELL Administration Propranolol HCl 10 mg 05/09/24 18:00 05/10/24 20:40 Propranolol 10 Mg Tablet PO 06/08/24 17:59 10 mg BID JANELL Administration Sucralfate 1 gm 05/09/24 18:00 05/10/24 21:49 Sucralfate Susp 1 Gm/10 Ml Udc PO 06/08/24 17:59 1 gm TID JAENLL Administration Plan Cristofer Beasley is a 63-year-old female with a past medical history of MASH cirrhosis, hypertension, psoriatic arthritis, and depression who was admitted on 05/08 for an episode of melena, found to have grade 3 varices and underwent banding. She is to complete 5-days octreotide drip. Hgb stable. #GI bleed, due to esophageal varices #History of esophageal varices status post banding #Melena #Esophageal varices s/p banding per EGD on 05/09 1 episode of nausea, nonbloody emesis, and dark-colored bowel movement and FOBT positive. Has history of esophageal varices that were banded during EGD 4 years ago. Hemoglobin stable at 9 EGD showed grade 3 esophageal varices. Banded. Esophageal ulcers with oozing blood. Erythematous mucosa in the antrum. ? Continue octreotide for total 5 days per GI recs, completion on 05/12 ? Gastroenterology consulted, appreciate recommendations ? Maalox and sucralfate as needed ? Continue propranolol 10 mg twice daily for portal HTN ? Pantoprazole IV twice daily ? SCDs for DVT prophylaxis #MASH cirrhosis #Trace ascites #SBP prophylaxis Presents with increasing abdominal distention and ascites associated with abdominal tenderness as well as fever and chills. MELD Na 9 points indicating 1.9% mortality in 3 months Child-Hatch class B US abdomen showed trace ascitic fluid. ? Continuing ceftriaxone 1 g IV daily for SBP ppx Additionally advised patient to follow up with network infrastructure architect outpatient for evaluation of liver transplant #History of psoriatic arthritis Home Otezla and Skyrizi not on formulary ? [place] 5 every 6 hours ? Oxycodone 5 mg IR for breakthrough pain #History of hypertension ? Metoprolol succinate was discontinued due to bradycardia ? Continue propranolol & losartan #History of depression ? Continue home lamotrigine 200 mg daily ? Continue home duloxetine 60 mg daily ? Given that patient has not had medications for over a month, we will start at 60 mg daily versus home 60 mg twice daily Hospital management: Disposition: Patient is admitted for management of esophageal varices status post banding. Continuing octreotide for 1 more day. Fluids: none given increased abdominal distention Diet: Clear liquid diet Lines: PIV DVT prophylaxis: SCDs given GI bleed GI prophylaxis: protonix IV BID CODE STATUS: full code Patient seen and care discussed with my attending Dr. Hartmann. Karen Turner MD PGY-3 Attending Provider Attestation/Addendum I have discussed and was present for the essential components of the history, physical examination, diagnosis, and treatment plan with the resident. I agree with the patient's care as documented by the resident and amended herein by me. Kris Hartmann, DO. Patient seen and evaluated this AM. No acute events overnight, vital signs stable, patient afebrile, hemoglobin stable at 9. Patient will complete octreotide drip tomorrow, emphasized the patient her continued need to follow-up with a hepatobiliary specialist, will discharge on PPI and propranolol 10 mg twice daily for continued control of portal hypertension. Will continue to monitor closely while she is here. Although this document has been carefully reviewed, there may still be some phonetic and other typographical errors. These errors are purely grammatical due to imperfections in the software program and should not be construed in any way to compromise the substance of the patient's medical care during this visit.
[2024-05-11] MEDS: lamoTRIgine 25 MG CHEW 200 MG PO (08:19)
[2024-05-11] MEDS: PANTOPRAZOLE INJ 40 MG VIAL IV ×2 (08:21→20:41)
[2024-05-11] MEDS: DULoxetine HCL 30 MG CAPSULE 60 MG PO (08:22)
[2024-05-11] MEDS: PROPRANOLOL 10 MG TABLET PO ×2 (08:22→20:42)
[2024-05-11 08:23] LABS: Alanine Aminotransferase 59 U/L (10-49); Albumin, Serum 3.2 gm/dL (3.4-4.8); Albumin/Globulin Ratio 1.2 (1.2-2.2); Alkaline Phosphatase 135 U/L (46-116); Anion Gap 9 (7-16); Aspartate Amino Transferase 83 U/L (0-34); BUN/Creatinine Ratio 12 Ratio (12-20); Bilirubin,Total 1.4 mg/dL (0.3-1.2); Blood Urea Nitrogen 11 mg/dL (9-23); Calcium 8.2 mg/dL (8.3-10.6); Calcium (Corrected) 8.8 mg/dL (8.5-10.1); Carbon Dioxide 25.2 mMol/L (20.0-31.0); Chloride 108 mMol/L (98-107); Creatinine (Component) 0.9 mg/dL (0.6-1.3); Estimated Creatinine Clearance 69.7 mL/min (>60); Globulin 2.7 gm/dL (2.3-3.5); Glucose 143 mg/dL (74-106); Magnesium 1.9 mg/dL (1.6-2.6); Osmolality,Calculated 284 (275-295); Phosphorous 3.1 mg/dL (2.4-5.1); Potassium 3.9 mMol/L (3.4-5.1); Sodium 142 mMol/L (136-145); Total Protein 5.9 gm/dL (5.7-8.2); eGFR > 60 See Note
[2024-05-11] MEDS: LOSARTAN POTASSIUM 25 MG TABLET PO (08:23)
[2024-05-11] MEDS: cefTRIAXone 1,000 MG in SODIUM CHLORIDE 0.9% (Popper) 50 ML 100 MG IV (08:23)
[2024-05-11] MEDS: oxyCODONE HCL 5 MG IR TAB PO (08:39)
[2024-05-11] MEDS: SUCRALFATE SUSP 1 GM/10 ML UDC PO ×2 (13:58→21:22)
--- NOTE | 2024-05-11 14:04 | PC.NURSE ---
BG 249, Dr. ROONEY notified.
[2024-05-11 16:00] LABS: Glucose Estimated Average 114 mg/dL (80-131); Hemoglobin A1C 5.6 % Hgb (4.8-6.0)
--- NOTE | 2024-05-11 22:37 | PD.IMPROG ---
Documentation for date of: 05/11/24 Subjective Subjective Interval history: Patient evaluated hemoglobin hematocrit 9.0 and 27.2 Exam Vital Signs Temp Pulse Resp BP Pulse Ox O2 Del Method O2 Flow Rate 97.1 F 60 18 114/63 98 Room Air 3 05/11/24 16:00 05/11/24 20:42 05/11/24 16:00 05/11/24 20:42 05/11/24 16:00 05/11/24 16:00 05/10/24 16:00 Objective Labs 05/11/24 07:36 05/11/24 07:36 Labs: Laboratory Results - last 24 hr 05/08/24 05/11/24 05/11/24 13:19 07:36 15:17 WBC 11.0 RBC 2.99 L Hgb 9.0 L Hct 27.2 L MCV 91 MCH 30.1 MCHC 33.1 RDW Std Deviation 45.3 Plt Count 222 D Neut % (Auto) 60 Lymph % (Auto) 32 [place] % (Auto) 6 Eos % (Auto) 1 Baso % (Auto) 1 Neut # (Auto) 6.6 Lymph # (Auto) 3.5 [place] # (Auto) 0.7 Eos # (Auto) 0.1 Baso # (Auto) 0.1 Immature Gran # (Auto) 0.04 H Absolute Nucleated RBC 0.00 Immature Gran % 0 Nucleated RBC % 0 Sodium 142 Potassium 3.9 Chloride 108 H Carbon Dioxide 25.2 Anion Gap 9 BUN 11 Creatinine 0.9 Estim Creat Clear Calc 69.7 eGFR > 60 BUN/Creatinine Ratio [address] Glu mg/dL 114 Hemoglobin A1c 5.6 Calculated Osmolality 284 Calcium 8.2 L Corrected Calcium 8.8 Phosphorus 3.1 Magnesium 1.9 Total Bilirubin 1.4 H AST 83 H ALT 59 H Alkaline Phosphatase 135 H Total Protein 5.9 Albumin 3.2 L Globulin 2.7 Albumin/Globulin Ratio 1.2 Crossmatch See Detail Impressions Impression: Acute upper GI bleed requiring band ligation of the esophageal varices continue current management Assessment & Plan A&P Narrative Anemia blood loss Melena Plan N.p.o. midnight tonight except p.o. meds Consent obtained for fiberoptic esophagogastroduodenoscopy with possible biopsy possible therapeutic intervention under intravenous moderate sedation IV Protonix Transfuse as necessary Serial CBC Other medical problems include Cirrhosis most likely MOONEY cirrhosis Depression Chronic pain syndrome Thank you very much for the opportunity to participate in the care of this patient Time Spent With Patient Time: Total time spent is greater than 50% in coordination of care (as documented) at patient's floor/unit and/or counseling patient:
[2024-05-12] VITALS (7 sets, daily range): BP systolic 107–121; BP diastolic 57–76; PULSE 59–67; RESP 17–18; TEMP 36.1–36.3; O2SAT 99–100; BMI 34.1
[2024-05-12 06:02] LABS: Basophils % (Auto) 0 % (0-2.5); Eosinophils # (Auto) 0.1 Thou/mm3 (0.0-0.5); Eosinophils % (Auto) 1 % (0-10); Hematocrit 24.9 % (36.0-46.0); Immature Granulocytes % (Auto) 1 % (0-0); Immature Granulocytes Auto 0.05 Thou/mm3 (0.00-0.00); Lymphocytes # (Auto) 2.9 Thou/mm3 (1.0-4.8); Lymphocytes % (Auto) 32 % (10-50); Mean Corpuscular HGB Conc 32.9 g/dl (31.0-37.0); Mean Corpuscular Hemoglobin 30.1 pg (25.0-35.0); Mean Corpuscular Volume 92 fL (80-100); Monocytes # (Auto) 0.7 Thou/mm3 (0.0-0.8); Monocytes % (Auto) 8 % (0-12); Neutrophils # (Auto) 5.3 Thou/mm3 (1.8-7.7); Neutrophils % (Auto) 58 % (37-80); Nucleated Red Blood Cell % 0 /100 WBC (0); Platelet Count 175 Thou/mm3 (140-440); RDW Standard Deviation 45.4 fL (36.4-46.3); Red Blood Count 2.72 Miln/mm3 (4.00-5.20); White Blood Count 9.2 Thou/mm3 (3.6-11.0)
[2024-05-12 06:09] LABS: Hemoglobin 8.2 g/dL (12.0-16.0)
[2024-05-12 06:27] LABS: Alanine Aminotransferase 49 U/L (10-49); Albumin, Serum 3.2 gm/dL (3.4-4.8); Albumin/Globulin Ratio 1.4 (1.2-2.2); Alkaline Phosphatase 133 U/L (46-116); Anion Gap 9 (7-16); Aspartate Amino Transferase 64 U/L (0-34); BUN/Creatinine Ratio 10 Ratio (12-20); Bilirubin,Total 1.1 mg/dL (0.3-1.2); Blood Urea Nitrogen 9 mg/dL (9-23); Calcium 8.4 mg/dL (8.3-10.6); Carbon Dioxide 26.1 mMol/L (20.0-31.0); Chloride 107 mMol/L (98-107); Creatinine (Component) 0.9 mg/dL (0.6-1.3); Estimated Creatinine Clearance 69.7 mL/min (>60); Globulin 2.3 gm/dL (2.3-3.5); Glucose 138 mg/dL (74-106); Osmolality,Calculated 283 (275-295); Sodium 142 mMol/L (136-145); Total Protein 5.5 gm/dL (5.7-8.2); eGFR > 60 See Note
[2024-05-12] MEDS: lamoTRIgine 25 MG CHEW 200 MG PO (08:42)
[2024-05-12] MEDS: SUCRALFATE SUSP 1 GM/10 ML UDC PO ×2 (08:42→14:06)
[2024-05-12] MEDS: PROPRANOLOL 10 MG TABLET PO (08:43)
[2024-05-12] MEDS: DULoxetine HCL 30 MG CAPSULE 60 MG PO (08:43)
[2024-05-12] MEDS: PANTOPRAZOLE INJ 40 MG VIAL IV (08:45)
[2024-05-12] MEDS: cefTRIAXone 1,000 MG in SODIUM CHLORIDE 0.9% (Popper) 50 ML 100 MG IV (08:46)
[2024-05-12] MEDS: LOSARTAN POTASSIUM 25 MG TABLET PO (08:48)
--- NOTE | 2024-05-12 10:39 | CHAP ---
Patient was visited by a Spiritual Care Volunteer on 05/12/2024 between 0900 and 0945 and received comfort, encouragement, and prayer.
--- NOTE | 2024-05-12 11:28 | PD.RESDS ---
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 She did not need a PRBC transfusion, and was started on Protonix twice daily, octreotide and Rocephin for SBP prophylaxis. Patient underwent EGD, was found to have grade 3 esophageal varices which were banded, and esophageal ulcers that were oozing blood. Propranolol and Carafate were added. Patient completed 5 days of octreotide drip. Her home meds were resumed, with adjustments made on BP regimen (see below). 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 MELD score 9 points, Child-Hatch Class B. #Melena, secondary to #Esophageal varices, grade 3, s/p banding #MASH cirrhosis #Trace ascites, not amenable to paracentesis #SBP prophylaxis #Psoriatic arthritis #HTN #Depression #Chronic pain Discharge plan: Your medications were adjusted to the following: -metoprolol discontinued, and replaced with propranolol (twice daily) & losartan (once daily) -protonix twice daily -sucralfate, upto four times daily. Take it 1 hour prior to other medications Resume your home meds as previously prescribed Follow up with your PCP within 1-2 weeks of discharge. If you do not have a PCP or they do not have any appointments, you can call the [facility] at [phone] and follow up with Dr. Sanford on Saturday afternoons Follow up outpatient with your space physicist to discuss options regarding liver disease If your symptoms return/worsen, return to your nearest ED Patient seen and care discussed with my attending Dr. Hartmann. Karen Turner MD PGY-3 Status at Discharge Cognitive/behavioral status at discharge: AAOx3 Time Spent with Patient Time attestation: Total time spent providing and/or coordinating discharge services: Time spent: Greater than 30 minutes Exam Vital Signs Temp Pulse Resp BP Pulse Ox O2 Del Method O2 Flow Rate 97.4 F 62 18 111/76 100 Room Air 3 05/12/24 08:00 05/12/24 08:48 05/12/24 08:00 05/12/24 08:48 05/12/24 08:00 05/12/24 08:00 05/10/24 16:00 Narrative Exam General: AOx3, in mild distress from pain, able to speak full sentences HEENT: NC/AT, mucous membranes moist, bilateral sclera anicteric Cardiovascular: regular rate and rhythm, S1/S2 present, no murmurs appreciated Pulmonary: clear to auscultation bilaterally, no rales/rhonchi/wheezes Abdominal: mild tender to palpation, soft, mildly distended, no rebound/guarding, normal bowel sounds present Musculoskeletal: normal ROM, no peripheral edema Skin: warm and dry, intact, plaques noted on R elbow and scars noted on BLE Neuro: CN II-XII intact, no focal deficits Discharge Plan Plan Patient Disposition: HOME (Self Care) Patient condition on transfer: Stable Care Plan Goals: Your medications were adjusted to the following: -metoprolol discontinued, and replaced with propranolol (twice daily) & losartan (once daily) -protonix twice daily -sucralfate, upto four times daily. Take it 1 hour prior to other medications Resume your home meds as previously prescribed Follow up with your PCP within 1-2 weeks of discharge. If you do not have a PCP or they do not have any appointments, you can call the [facility] at [phone] and follow up with Dr. Sanford on Saturday afternoons Follow up outpatient with your space physicist to discuss options regarding liver disease If your symptoms return/worsen, return to your nearest ED Prescriptions/Referrals Prescriptions/Med Rec: New losartan 25 mg Tablet 25 mg PO QDAY 30 Days Qty: 30 0RF propranolol 10 mg Tablet 10 mg PO BID 30 Days Qty: 60 0RF Rx Instructions: Take 10mg twice daily. Can hold dose if HR <50 or systolic blood pressure <100 pantoprazole [Protonix] 40 mg tablet,delayed release (DR/EC) 40 mg PO BID 30 Days Qty: 60 1RF Rx Instructions: Take 1 tab twice daily sucralfate 100 mg/mL suspension 10 ml PO QID Qty: 400 1RF Rx Instructions: swish in mouth and swallow; use after food/drink; Take 1 hour before other medications Continued duloxetine 60 mg capsule,delayed release(DR/EC) 60 mg PO BID Patient Comments: TAKE 1 CAPSULE BY MOUTH TWICE A DAY lamotrigine 200 mg tablet 200 mg PO DAILY Patient Comments: TAKE 1 TABLET BY MOUTH EVERY DAY FOR 30 DAYS diclofenac sodium 1 % gel 2 g TOPICAL QID Patient Comments: APPLY 2 GRAMS TO AFFECTED AREA 4 TIMES A DAY Discontinued metoprolol succinate 50 mg tablet extended release 24 hr 50 mg PO DAILY Patient Comments: TAKE 1 TABLET BY MOUTH EVERY DAY Referrals: No Primary/Family,Physician [Primary Care Provider] - Patient/Caregiver Discharge Instructions Discharge Activity: activity as tolerated Education Materials: Bleeding Gastrointestinal, Diabetes: Meal Planning, Diabetes- Measuring Glucose at Home, ED Diet: Diabetes, Facts About Diabetes, Diabetes and High Blood Pressure Print Language: Romansh Stand Alone Forms: [employer] Interactive Award Info., Patient Portal Info Letter Discharge Order Discharge Orders: Discharge (Routine); Ordered 05/12/24 Ordered By: Karen Turner Quality Discharge Quality Measures VTE prophylaxis (SCDs) Attestestation MD Attestation I have discussed and was present for the essential components of the discharge history, physical examination, diagnosis, and discharge treatment plan with the resident. I agree with the patient's discharge care as documented by the resident and amended herein by me. Kris Hartmann DO. The patient understood all discharge instructions, all questions were answered satisfactorily. The patient was instructed to return to the Emergency Department is symptoms worsened or persisted. Although this document has been carefully reviewed, there may still be some phonetic and other typographical errors. These errors are purely grammatical due to imperfections in the software program and should not be construed in any way to compromise the substance of the patient's medical care during this visit.
[2024-05-12] MEDS: oxyCODONE HCL 5 MG IR TAB PO (14:10)
--- NOTE | 2024-05-12 14:30 | PC.NURSE ---
Pt ready for discharge as soon as ride shows up.
== END 2024-05-12 16:03 | disposition home or self-care (01) | DRG 381 ==
LOC: SERX 05-08 11:23 → SERHOLD 05-08 12:31 → S2NX 05-08 18:26 → S3SX 05-11 04:38
PROVIDERS: Emergency Medicine; Physician Assistant; Specialist; Student in an Organized Health Care Education/Training Program; Admitting Provider Student in an Organized Health Care Education/Training Program; Emergency Provider Emergency Medicine; Visit Provider Student in an Organized Health Care Education/Training Program
PROC: 06L38CZ Occlusion of Esophageal Vein with Extraluminal Device, Via Natural or Artificial Opening Endoscopic (ICD-10-PCS; CPT 43239; principal; 2024-05-09 12:45)
DX: K22.11 Ulcer of esophagus with bleeding (principal); E87.20 Acidosis, unspecified; I85.10 Secondary esophageal varices without bleeding; K76.6 Portal hypertension; R18.8 Other ascites; K74.60 Unspecified cirrhosis of liver; K31.89 Other diseases of stomach and duodenum; L40.50 Arthropathic psoriasis, unspecified; D50.0 Iron deficiency anemia secondary to blood loss (chronic); F32.A Depression, unspecified; I10 Essential (primary) hypertension; G89.4 Chronic pain syndrome; K75.81 Nonalcoholic steatohepatitis (NASH); N20.0 Calculus of kidney; Z63.4 Disappearance and death of family member; Z79.899 Other long term (current) drug therapy
CPT/HCPCS: 36415; 71045; 74177; 76705; 80053; 80061; 80307; 81001; 82270; 83036; 83605; 83690; 83735; 84100; 84145; 84439; 84443; 84484; 85014; 85018; 85025; 85610; 85730; 86850; 86900; 86901; 86923; 87040; 87081; 93005; 93225; 96361; 96365; 96367; 96375; 99285; A4649; J0360; J0696; J1200; J1885; J2250; J2354; J2470; J2543; J3010; J3475; J7030; J7050; Q9967; A9270

== ENCOUNTER 2024-12-10 21:18 | Inpatient (IN) | payer MEDICARE, MEDICAID, SELFPAY ==
--- NOTE | 2024-12-10 21:22 | PD.EDAMS ---
Altered Mental Status RME/HPI General Chief Complaint: Altered Mental Status Stated Complaint: AMS Time Seen by Provider: 12/10/24 21:24 Arrival date/time: 12/10/24 21:18 RME / HPI RME / HPI narrative: Dr. Canela?s Main ED Evaluation: 64yo female with a history of cirrhosis secondary to MOONEY, HTN, psoriatic arthritis, depression, chronic pain BIBA from home presents to the ED for a chief complaint of altered mental status. Per EMS, patient's son reported the patient has been altered since last night, reporting it got progressively worse this afternoon. Son noted the patient has been increasingly more weak and has not been getting out of bed, and endorses the patient has not been on her medications since March due to having problems with her insurance. Full ROS is unobtainable due to the patient's altered mental status. Related Data Home Medications ?Medication ?Instructions ?Recorded ?Confirmed diclofenac sodium 1 % topical gel 2 g topical QID 05/08/24 05/08/24 duloxetine 60 mg capsule,delayed 60 mg PO BID 05/08/24 05/08/24 release lamotrigine 200 mg tablet 200 mg PO DAILY 05/08/24 05/08/24 Previous Rx's ?Medication ?Instructions ?Recorded pantoprazole 40 mg tablet,delayed 40 mg PO BID 30 days #60 tabs 05/12/24 release (Protonix) sucralfate 100 mg/mL oral 10 ml PO QID #400 mL 05/12/24 suspension Allergies Allergy/AdvReac Type Severity Reaction Status Date / Time Sulfa (Sulfonamide Allergy Rash Verified 05/07/24 22:05 Antibiotics) Review of Systems Review of Systems ROS Unobtainable: unobtainable due to mental status ED Exam Narrative Physical exam: Generally patient is alert but confused with poor hygiene, eyes pupils equal round reactive to light, head is normocephalic atraumatic, neck shows no nuchal rigidity, heart tachycardic rate with regular rhythm, lungs clear to auscultation equal bilaterally, abdomen is nondistended very mild diffuse tenderness without rebound, neurologic exam patient is confused eyes are open spontaneously periodically obeys simple commands with Dipak Coma Scale of 14. No focal motor deficits. Skin is warm pale and dry without rash Course Course Course Narrative: CXR is ordered for determining the etiology of AMS. Quality Measures none Orders Category Date Time Status In and Out Catheter Care 12/10/24 23:[address] abdomen pelvis wo con Stat Exams 12/10/24 23:[address] head/brain wo con Stat Exams 12/10/24 21:25 Completed US abdomen Stat Exams 12/11/24 00:00 Taken XR chest 1V portable Stat Exams 12/10/24 23:55 Taken Alcohol, Blood Medical Stat Lab 12/10/24 21:54 Completed Ammonia Stat Lab 12/10/24 21:54 Completed Blood Culture (Lab) Stat Lab 12/11/24 00:30 Ordered CBC Stat Lab 12/10/24 21:54 Completed CMP [Comprehensive Metabolic Panel] Stat Lab 12/10/24 21:54 Completed CSF Culture and Gram Stain Stat Lab 12/11/24 00:51 Ordered Cell Count w Diff, CSF Stat Lab 12/11/24 00:51 Ordered Drug Screen,Urine Stat Lab 12/10/24 23:11 Completed Glucose,CSF Stat Lab 12/11/24 00:51 Ordered PT [Prothrombin Time with INR] Stat Lab 12/10/24 21:54 Completed Path Review Blood Smear Stat Lab 12/10/24 21:54 Completed Protein Total,CSF Stat Lab 12/11/24 00:51 Ordered UA [Urinalysis] Stat Lab 12/10/24 23:11 Completed Lactulose Syrup [Enulose Syrup] Med 12/10/24 21:24 Discontinued 30 gm PO X1 ONE cefTRIAXone/D5w 1gm IV premix [Rocephin/D5w 1gm IV Med 12/11/24 00:24 Discontinued premix] 1 gm in 50 ml IV X1 Vital Signs Vital signs: Vital Signs Temperature 98.1 F 12/10/24 21:41 Pulse Rate 122 H 12/10/24 21:41 Respiratory Rate 20 12/10/24 21:41 Blood Pressure 134/72 H 12/10/24 21:41 Pulse Oximetry (%) 100 12/10/24 21:41 Oxygen Delivery Method Room Air 12/10/24 21:41 Altered Mental Status MDM Narrative MDM Narrative:: Scribe Attestation: 12/10/24 - Daysi Kate, am scribing for and in the presence of Dr. Canela. Differential diagnosis, hepatic encephalopathy, intracerebral bleed, infection I interpreted all labs. Ammonia level is only 15. White count was 38,900. BUN and creatinine were elevated with a creatinine of 4.4. Potassium was normal at 4.1. BUN and creatinine were normal back in April of this year. Urine was infected. Blood cultures were obtained. Urine culture was obtained. Patient received Rocephin 1 g IV. Patient appears to have new onset renal failure but has a normal potassium. Definitely has a urine infection. I thought it was prudent to obtain a CAT scan of the brain in this patient and the CAT scan the brain was negative. Next the patient needed a lumbar puncture. This was of medical necessity. With the patient in a sitting position and slightly flexed forward, the skin over the L3-L4 interspace was cleansed using Betadine. It was anesthetized with 1% lidocaine without epinephrine. Using a 22-gauge spinal needle and a single attempt the subarachnoid space was entered and approximately a total of 4 cc of clear colorless fluid was removed from the subarachnoid space and sent to lab for analysis. I did discuss this case with Dr. Nino who will admit this patient to the hospital for further treatment and evaluation. In addition to the CAT scan of the brain a CT scan of abdomen and pelvis without contrast was obtained which showed no acute disease other than sequelae from the patient's nonalcoholic steatohepatitis. Ultrasound of the abdomen was also obtained with results pending. 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 Record#: [id number] Birthdate: 1960 Age/Sex: 64 / F Location: [facility] Attending Dr: Ordering Physician: Roland Canela DO Date of Service: 12/10/24 Procedure(s): CT head/brain wo con Accession Number(s): [id number] cc: Veto Martinez MD; NO PRIMARY/FAMILY,PHYSICIAN; Roland Canela DO~ Examination: CT brain head without contrast. 2-D sagittal coronal reconstructions Date and time of exam: December 10, 2024, 10:11 p.m. INDICATIONS: Onset altered mental status today CTDI: vol (mGy): 50.60 DLP: (mGycm): 1014 Technique: Multiple CT axial sections of the brain have been obtained, 5 mm slice thickness. Contrast has not been administered. 2-D sagittal, coronal reconstructions have been obtained Low dose protocols were performed. One or more of the following dose reduction techniques were used; automated exposure control, adjustment of the mA and/or KV according to patient size, use of iterative reconstruction technique. Findings: No significant ventricular enlargement. Intra-axial or extra-axial hemorrhage density is not seen. No mass effect or midline shift Basal cisterns are not remarkable. Fourth ventricle is midline. Cranial vault intact. Impression: Negative for acute hemorrhage, mass effect or midline shift Advise clinical correlation and follow-up accordingly Dictated By: Veto Martinez MD Signed By: <Electronically signed by Veto Martinez MD in OV> 12/10/24 2242 [facility] Signed Patient: DENISE TELLES Record#: [id number] Birthdate: 1960 Age/Sex: 64 / F Location: [facility] Attending Dr: Ordering Physician: Roland Canela DO Date of Service: 12/10/24 Procedure(s): CT abdomen pelvis wo con Accession Number(s): [id number] cc: Veto Martinez MD; NO PRIMARY/FAMILY,PHYSICIAN; Roland Canela DO~ Examination: CT abdomen and pelvis without contrast. Coronal 3-D reconstructions. Sagittal 2-D reconstructions. Date and time of exam: December 10, 2024, 11:30 p.m., comparison May 08, 2024 INDICATIONS: Onset of abdominal pain today CTDI: vol (mGy): 10.91 DLP: (mGycm): 647 Technique: Axial images of the abdomen have been obtained, 3 mm slice thickness Intravenous contrast material has not been administered. Low dose protocols were performed. One or more of the following dose reduction techniques were used; automated exposure control, adjustment of the mA and/or KV according to patient size, use of iterative reconstruction technique. Findings: Small pericardial effusion Retrocardiac gastric hernia Cirrhosis, hepatosplenomegaly Esophageal perigastric varices No pancreatic mass Small ascites No hydronephrosis renal or ureteral calculi No bowel obstruction Normal appendix Enlarged fundus of the uterus No bowel obstruction Air in the urinary bladder Mild urinary bladder wall thickening Moderate disc narrowing L5-S1 IMPRESSION: Cirrhosis Hepatosplenomegaly Esophageal and perigastric varices Small ascites No bowel obstruction Enlarged fundus of the uterus, recommend pelvic sonography follow-up Dictated By: Veto Martinez MD Signed By: <Electronically signed by Veto Martinez MD in OV> 12/11/24 0001 Medications / Prescriptions Medications or Prescriptions considered but not ordered:: none Medication administrations:: Medication Administration History Discontinued Medications Ceftriaxone Sodium/Dextrose (Rocephin/D5w 1gm Iv Premix) 1 gm in 50 mls @ 100 mls/hr IV X1 ONE Stop: 12/11/24 00:53 Lactulose (Lactulose Syrup 20 Gm/30 Ml Udc) 30 gm PO X1 ONE; Protocol Stop: 12/10/24 21:25 Last Admin: 12/10/24 21:45 Dose: 30 gm Documented By: AC see above Consultations Consultation(s) initiated? (list below): Yes Diagnosis Differential diagnosis altered mental status: other (See MDM) Most likely diagnosis given after review of the tests above:: see clinical impression below Admission Indicated Admission indicated?: indicated Admission Request Was there a request for admission?: Yes Admission Attestation Admission request attestation: Discussed case with [] from Hospitalist service regarding admission. Discussed patients ED course, exam findings, labs, and radiology results. The Hospitalist [agrees,declines] to accept the patient for admission. Disposition Plan Disposition Plan: Admit Critical Care Time Critical Care Time Critical Care Time: Yes Total Critical Care Time (min.): 35 Attestation: Excluding other billable procedures Discharge Plan Plan Patient Disposition: Admit Acute Care w/in Hospital Prescriptions/Referrals Prescriptions/Med Rec: No Action duloxetine 60 mg capsule,delayed release(DR/EC) 60 mg PO BID Patient Comments: TAKE 1 CAPSULE BY MOUTH TWICE A DAY lamotrigine 200 mg tablet 200 mg PO DAILY Patient Comments: TAKE 1 TABLET BY MOUTH EVERY DAY FOR 30 DAYS diclofenac sodium 1 % gel 2 g TOPICAL QID Patient Comments: APPLY 2 GRAMS TO AFFECTED AREA 4 TIMES A DAY pantoprazole [Protonix] 40 mg tablet,delayed release (DR/EC) 40 mg PO BID 30 Days Qty: 60 1RF Rx Instructions: Take 1 tab twice daily sucralfate 100 mg/mL suspension 10 ml PO QID Qty: 400 1RF Rx Instructions: swish in mouth and swallow; use after food/drink; Take 1 hour before other medications Referrals: No Primary/Family,Physician [Primary Care Provider] - In 1 week Problem List Clinical Impression: Altered mental status, UTI (urinary tract infection), Leukocytosis, Renal failure Patient/Caregiver Discharge Instructions Print Language: Pashto Stand Alone Forms: [facility] Award Info., Patient Portal Info Letter
[2024-12-10 21:24] VITALS: PULSE 104; RESP 20; O2SAT 97
--- NOTE | 2024-12-10 21:25 | XR_ITS ---
Examination: CT brain head without contrast. 2-D sagittal coronal reconstructions Date and time of exam: December 10, 2024, 10:11 p.m. INDICATIONS: Onset altered mental status today CTDI: vol (mGy): 50.60 DLP: (mGycm): 1014 Technique: Multiple CT axial sections of the brain have been obtained, 5 mm slice thickness. Contrast has not been administered. 2-D sagittal, coronal reconstructions have been obtained Low dose protocols were performed. One or more of the following dose reduction techniques were used; automated exposure control, adjustment of the mA and/or KV according to patient size, use of iterative reconstruction technique. Findings: No significant ventricular enlargement. Intra-axial or extra-axial hemorrhage density is not seen. No mass effect or midline shift Basal cisterns are not remarkable. Fourth ventricle is midline. Cranial vault intact. Impression: Negative for acute hemorrhage, mass effect or midline shift Advise clinical correlation and follow-up accordingly
[2024-12-10 21:30] VITALS: BMI 30.5
[2024-12-10 21:41] VITALS: BP 134/72; PULSE 122; RESP 20; TEMP 36.7; O2SAT 100
[2024-12-10] MEDS: LACTULOSE SYRUP 20 GM/30 ML UDC 30 GM PO (21:45)
[2024-12-10 22:05] LABS: Basophils # (Auto) 0.0 Thou/mm3 (0.0-0.2); Basophils % (Auto) 0 % (0-2.5); Eosinophils # (Auto) 0.0 Thou/mm3 (0.0-0.5); Eosinophils % (Auto) 0 % (0-10); Hematocrit 34.6 % (36.0-46.0); Hemoglobin 11.8 g/dL (12.0-16.0); Immature Granulocytes Auto 2.17 Thou/mm3 (0.00-0.00); Lymphocytes # (Auto) 1.7 Thou/mm3 (1.0-4.8); Lymphocytes % (Auto) 4 % (10-50); Mean Corpuscular HGB Conc 34.1 g/dl (31.0-37.0); Mean Corpuscular Hemoglobin 29.9 pg (25.0-35.0); Mean Corpuscular Volume 88 fL (80-100); Monocytes # (Auto) 2.7 Thou/mm3 (0.0-0.8); Monocytes % (Auto) 7 % (0-12); Neutrophils # (Auto) 32.4 Thou/mm3 (1.8-7.7); Neutrophils % (Auto) 83 % (37-80); Nucleated Red Blood Cell # 0.03 Thou/mm3 (0.00-0.00); Nucleated Red Blood Cell % 0 /100 WBC (0); Platelet Count 99 Thou/mm3 (140-440); RDW Standard Deviation 50.9 fL (36.4-46.3); Red Blood Count 3.95 Miln/mm3 (4.00-5.20)
[2024-12-10 22:13] LABS: INR 1.3 (0.9-1.3); Prothrombin Time 13.1 Seconds (9.0-12.2)
[2024-12-10 22:17] LABS: Ammonia 15 uMol/L (11-32)
[2024-12-10 22:19] LABS: Alanine Aminotransferase 82 U/L (10-49); Albumin, Serum 3.2 gm/dL (3.4-4.8); Albumin/Globulin Ratio 1.2 (1.2-2.2); Alcohol, Blood Medical < 3.0 mg/dL (0-10.0); Alkaline Phosphatase 218 U/L (46-116); Anion Gap 16 (7-16); Aspartate Amino Transferase 106 U/L (0-34); BUN/Creatinine Ratio 18 Ratio (12-20); Bilirubin,Total 5.1 mg/dL (0.3-1.2); Blood Urea Nitrogen 79 mg/dL (9-23); Calcium 8.9 mg/dL (8.3-10.6); Calcium (Corrected) 9.5 mg/dL (8.5-10.1); Carbon Dioxide 17.9 mMol/L (20.0-31.0); Chloride 102 mMol/L (98-107); Creatinine (Component) 4.4 mg/dL (0.6-1.3); Estimated Creatinine Clearance 13.3 mL/min (>60); Globulin 2.7 gm/dL (2.3-3.5); Glucose 111 mg/dL (74-106); Osmolality,Calculated 296 (275-295); Potassium 4.1 mMol/L (3.4-5.1); Sodium 136 mMol/L (136-145); Total Protein 5.9 gm/dL (5.7-8.2); eGFR 11 See Note
[2024-12-10 22:31] LABS: Path Review Blood Smear Sent to Pathologist; White Blood Count 38.9 Thou/mm3 (3.6-11.0)
--- NOTE | 2024-12-10 23:15 | XR_ITS ---
Examination: CT abdomen and pelvis without contrast. Coronal 3-D reconstructions. Sagittal 2-D reconstructions. Date and time of exam: December 10, 2024, 11:30 p.m., comparison May 08, 2024 INDICATIONS: Onset of abdominal pain today CTDI: vol (mGy): 10.91 DLP: (mGycm): 647 Technique: Axial images of the abdomen have been obtained, 3 mm slice thickness Intravenous contrast material has not been administered. Low dose protocols were performed. One or more of the following dose reduction techniques were used; automated exposure control, adjustment of the mA and/or KV according to patient size, use of iterative reconstruction technique. Findings: Small pericardial effusion Retrocardiac gastric hernia Cirrhosis, hepatosplenomegaly Esophageal perigastric varices No pancreatic mass Small ascites No hydronephrosis renal or ureteral calculi No bowel obstruction Normal appendix Enlarged fundus of the uterus No bowel obstruction Air in the urinary bladder Mild urinary bladder wall thickening Moderate disc narrowing L5-S1 IMPRESSION: Cirrhosis Hepatosplenomegaly Esophageal and perigastric varices Small ascites No bowel obstruction Enlarged fundus of the uterus, recommend pelvic sonography follow-up
[2024-12-10 23:17] LABS: Collection Type, Urine Voided
[2024-12-10 23:55] LABS: Bacteria,Urine 3+; Bilirubin,Urine Negative (Negative); Blood,Urine 2+ (Negative); Clarity,Urine Turbid (Clear/Hazy); Color,Urine Yellow (Lt Yel-Yel); Glucose, Urine Negative (Negative); Ketones,Urine Negative (Negative); Leukocyte Esterase,Urine Positive (Negative); Nitrite,Urine Negative (Negative); PH,Urine 5.5 (5.0-7.0); Protein,Urine 1+ (Neg - Trace); RBC,Urine 29 /hpf (0-3); Specific Gravity,Urine 1.013 (1.001-1.035); Squamous Epithelial Cell,Urine 2 /hpf (0-5); Urobilinogen,Urine Negative mg/dL (0.0-1.0); WBC,Urine 459 /hpf (0-5)
--- NOTE | 2024-12-10 23:55 | XR_ITS ---
EXAMINATION: AP chest single view TECHNIQUE: AP portable semiupright chest single view Date and time: December 11, 2024, 0005 hours INDICATIONS: Chest pain today FINDINGS: Mild prominence left ventricle Mild vascular congestion No lobar pneumonia. Mild osteopenia IMPRESSION: Mild vascular congestion
[2024-12-11] VITALS (11 sets, daily range): BP systolic 86–133; BP diastolic 48–82; PULSE 88–103; RESP 16–100; TEMP 36.2–36.8; O2SAT 95–99; BMI 30.7
--- NOTE | 2024-12-11 | XR_ITS ---
Examination: Abdomen sonogram, complete Date and time of exam: December 11, 2024, 0011 hours INDICATIONS: Liver and kidney failure and laboratory examination this week. Technique: Multiple real-time grayscale transabdominal sonographic images of the abdomen have been obtained. Findings: Absent gallbladder Normal common bile duct 0.2 cm Pancreas obscured by bowel gas as well as mid and distal aorta Proximal aorta normal size Hepatomegaly 18.8 cm lobular contour fatty infiltration Normal hepatopetal portal venous flow Patent IVC Right kidney 13.6 cm renal cortex 1.7 cm Left kidney 13.5 cm renal cortex 1.9 cm Mild renal scar formation No hydronephrosis Spleen 16.7 cm IMPRESSION: Absent gallbladder Normal common bile duct Hepatosplenomegaly Primary parasellar disease versus cirrhosis
[2024-12-11 00:09] LABS: Amphetamine/Methamp Scrn,U Negative (Negative); Barbiturate Screen,Urine Negative (Negative); Benzodiazepines Screen,Urine Negative (Negative); Benzoylecgonine Screen, Ur Negative (Negative); Fentanyl Screen,Urine Negative (Negative); Opiate Screen,Urine Negative (Negative); THC Screen,Urine Negative (Negative)
[2024-12-11] MEDS: cefTRIAXone/D5w 1gm IV premix 1 GM/50 ML BAG IV (01:19)
[2024-12-11 01:27] LABS: CSF Cell Count Tube # Tube # 4; CSF Color Colorless (Colorless); CSF Mononuclear 33 %; CSF Polynuclear WBC 67 %; CSF Red Blood Cell 1 /cmm; CSF White Blood Cell 3 /cmm; CSF, Appearance Clear (Clear)
--- NOTE | 2024-12-11 01:29 | PD.HHHP ---
Documentation for date of: 12/11/24 HPI - Hospitalist History of Present Illness History of present illness: Source: ER CC: Altered mental status HPI: The patient is a 64 yr old female male. Past medical history is significant for cirrhosis, MASH Psoriatec arthritis, depression, chronic pain. The patient presents with altered mental status, no family members around. Patient was tachycardic. Her blood pressure is soft. The patient is a poor historian.. Onset of symptom today. Duration is__1 day. She had previous admission for GI bleed. She has esophageal varices. Today the patient had CT scan showing cirrhosis of the liver no other acute findings. The urinalysis is significant for leukocyte esterase and many white blood cells. Patient received IV Rocephin. Lumbar puncture was also sent for evaluation. Aggravating/relieving factors. Per ROLLER MECHANIC the patient was covered with dark fecal material. Sepsis alert was called. The patient was given IV fluids. The patient has elevated creatinine level. CO2 17. Sodium bicarb drip was initiated. No recent trauma or falls. Patient lives at __. Patient is FULL CODE. Past medical history: Cirrhosis, MASH psoriatic arthritis esophageal varices, hypertension Surgical history: Open cholecystectomy, salpingo-oophorectomy, EGD and colonoscopy Personal history: non smoker, previous ETOH drinker, no recreational drug use. Family history: brother has cirrhosis Review of Systems Review of Systems Systems Reviewed: All systems reviewed, normal except as documented ROS Unobtainable: unobtainable due to mental status Meds Home Medications and Allergies Home Medications ?Medication ?Instructions ?Recorded ?Confirmed ?Type diclofenac sodium 1 % topical gel 2 g topical QID 05/08/24 05/08/24 History duloxetine 60 mg capsule,delayed 60 mg PO BID 05/08/24 05/08/24 History release lamotrigine 200 mg tablet 200 mg PO DAILY 05/08/24 05/08/24 History Allergies Allergy/AdvReac Type Severity Reaction Status Date / Time Sulfa (Sulfonamide Allergy Rash Verified 05/07/24 22:05 Antibiotics) Exam Vital Signs Temp Pulse Resp BP Pulse Ox O2 Del Method 98.1 F 103 H 20 86/48 L 98 Room Air 12/10/24 21:41 12/11/24 01:14 12/11/24 01:14 12/11/24 01:14 12/11/24 01:14 12/11/24 01:14 Gen: Arousable, confused Skin: warm, fair turgor, no ecchymosis HEENT: NCAT, HILDA, no nasoaural discharge, moist mucous membranes Neck: supple, no JVD, no thyromegaly Lungs: clear to auscultation CV: regular rate and rhythm, no murmurs, no edema Abd: soft and non tender, normoactive bowel sounds : no CVA tenderness Ext: no calf tenderness., min small joint deformities, no joint effusion, full ROM of large joints, Neuro: Arousable, confused, moves all extremities Psych: calm, cooperative, not depressed. Results - Hospitalist Labs Diagrams: 12/10/24 21:54 12/10/24 21:54 Labs: Short CBC 12/10/24 Range/Units 21:54 WBC 38.9 H* (3.6-11.0) Thou/mm3 Hgb 11.8 L (12.0-16.0) g/dL Hct 34.6 L (36.0-46.0) % Plt Count 99 L (140-440) Thou/mm3 BMP 12/10/24 21:54 Sodium 136 Potassium 4.1 Chloride 102 Carbon Dioxide 17.9 L BUN 79 H Creatinine 4.4 H* Glucose 111 H Calcium 8.9 Liver Function 12/10/24 Range/Units 21:54 Total Bilirubin 5.1 H (0.3-1.2) mg/dL AST 106 H (0-34) U/L ALT 82 H (10-49) U/L Alkaline Phosphatase 218 H (46-116) U/L Albumin 3.2 L (3.4-4.8) gm/dL Urine 12/10/24 Range/Units 23:11 Urine Color Yellow (Lt Yel-Yel) Urine Clarity Turbid A (Clear/Hazy) Urine pH 5.5 (5.0-7.0) Ur Specific [place] 1.013 (1.001-1.035) Urine Protein 1+ A (Neg - Trace) Urine Glucose (UA) Negative (Negative) Assessment & Plan -Hospitalist Patient Synopsis Assessment and plan: 64-year-old female with MASH cirrhosis, esophageal varices, psoriatic arthritis, chronic back pain, hypertension presented with altered mental status. Patient was found to have high white count of 38,000. She has abnormal urinalysis. CSF studies negative 1. Severe sepsis secondary to urinary tract infection Leucocytosis, severe -The patient was started on empiric antibiotics to cover most likely organisms including gram-negative rods. -Follow culture results -Check imaging results - soft BP , will give IV fluids. 2. Encephalopathy secondary to underlying infection -Treat underlying infection -Look for other causes of mental status changes. -Her ammonia level is less than 20 -CT brain is negative - CSF WBC - 4 protein 44. 3. MASH, cirrhosis -CT scan of the abdomen showed cirrhosis, hepatomegaly and splenomegaly, esophageal and perigastric varices, small ascites -Continue supportive measures -Avoid hepatotoxic medications -Monitor coagulation panel -Monitor LFTs 4. Acute kidney injury with metabolic acidosis - received IV fluids. -Check urine electrolytes. Patient will be started on sodium bicarb drip. -Monitor intake and output. -Repeat BMP daily -Consult nephrology in a.m. 5. Chronic back pain - symptomatic treatment 6. Psoriatic arhtritis - provide symptomatic treatment - outpatient follow up/ Code status : Full code Quality Measures Quality Measures none
[2024-12-11 01:45] LABS: Glucose,CSF 50 mg/dL (40-70); Protein Total,CSF 44 mg/dL (8-32)
--- NOTE | 2024-12-11 02:03 | PRELIM_ITS ---
Ultrasound Abdomen with Doppler and wave Doppler spectral analysis. December 11, 2024 0012 hours Clinical history: Liver and kidney failure Technique: Grayscale and color flow images of the abdomen are provided. Hepatic and portal veins were also imaged with color flow images. Comparison: None available at the time of this report. Findings: The liver is enlarged and demonstrates heterogenous increased echogenicity and lobular contour and. No intrahepatic biliary ductal dilatation. S/p cholecystectomy. The common bile duct is normal in caliber at 2.3 mm. No free fluid is demonstrated on the submitted images. The pancreas was not visualized. The right kidney measures 13.6 cm, parenchymal scarring noted. The left kidney measures 13.5 cm. There is no hydronephrosis and the corticomedullary differentiation is maintained. The spleen is enlarged measuring 16.7 cm in length. The abdominal aorta and inferior vena cava to the extent visualized are within normal limits. The IVC is patent with normal wave Doppler spectral analysis. The hepatic veins are patent with normal wave Doppler spectral analysis. The portal vein is patent with hepatopetal flow and normal wave Doppler spectral analysis. Impression: Probable cirrhosis associated with splenomegaly. Right renal scarring. Report Electronically Signed By: Les Andres 12/11/2024 2:02:34 AM [EST]
[2024-12-11] MEDS: SODIUM CHLORIDE 0.9% 1000 ML 1,000 ML 999 ML IV ×2 (02:08→19:27)
[2024-12-11 02:09] LABS: Lactate (Lactic Acid) 3.2 mMol/L (0.4-2.0)
[2024-12-11] MEDS: PIPER/TAZO 3.375 GM PREMIX 3.375 GM/50 ML BAG IV ×3 (02:09→21:20)
--- NOTE | 2024-12-11 02:27 | PD.EDADDENDU ---
Emergency Room Addendum Addendum Narrative: The reason why a septic alert was not originally called upon patient's presentation to the emergency room was because the chief complaint was for alteration of mental status. There was no other history available on this patient at this time. There was no suspected source of infection. And that is the main reason why a septic alert was not called. Patient has a history of hepatic cirrhosis and it was thought that the patient had hepatic encephalopathy accounting for the alteration of mental status. When the ammonia came back at 15 other reasons were sought for alteration of mental status. White count came back extremely elevated. Eventually a urinalysis was obtained showing evidence for infection and antibiotics were started and a lactic acid was obtained as well as blood cultures. Patient was given Rocephin 1 g IV. Due to the leukocytosis and alteration of mental status that I did not necessarily feel accounted for the patient's alteration mental status, lumbar puncture was performed. Again, aseptic alert was not originally called because of the chief complaint was for alteration mental status and there was no suspicion of infectious source originally upon presentation. There was no history available on this patient due to the fact that the patient was not a reliable historian.
[2024-12-11] MEDS: Sodium Bicarb 8.4% 50ml Vial* 88.23 MEQ in DEXTROSE 5%-WATER 500 ML 100 MEQ IV ×3 (03:23→15:04)
[2024-12-11 03:49] LABS: CSF Gram Stain Alert Gram Stain Completed
[2024-12-11 05:09] LABS: Reflex Lactate? Y
[2024-12-11 05:39] LABS: Lactic Acid, 3 HR 1.6 mMol/L (0.4-2.0)
[2024-12-11 05:47] LABS: Basophils # (Auto) 0.0 Thou/mm3 (0.0-0.2); Basophils % (Auto) 0 % (0-2.5); Eosinophils # (Auto) 0.0 Thou/mm3 (0.0-0.5); Eosinophils % (Auto) 0 % (0-10); Hematocrit 30.5 % (36.0-46.0); Hemoglobin 10.4 g/dL (12.0-16.0); Immature Granulocytes Auto 2.04 Thou/mm3 (0.00-0.00); Lymphocytes # (Auto) 1.4 Thou/mm3 (1.0-4.8); Lymphocytes % (Auto) 4 % (10-50); Mean Corpuscular HGB Conc 34.1 g/dl (31.0-37.0); Mean Corpuscular Hemoglobin 29.5 pg (25.0-35.0); Mean Corpuscular Volume 87 fL (80-100); Monocytes # (Auto) 2.0 Thou/mm3 (0.0-0.8); Monocytes % (Auto) 6 % (0-12); Neutrophils # (Auto) 26.5 Thou/mm3 (1.8-7.7); Neutrophils % (Auto) 83 % (37-80); Nucleated Red Blood Cell # 0.02 Thou/mm3 (0.00-0.00); Nucleated Red Blood Cell % 0 /100 WBC (0); RDW Standard Deviation 50.2 fL (36.4-46.3); Red Blood Count 3.52 Miln/mm3 (4.00-5.20); White Blood Count 32.0 Thou/mm3 (3.6-11.0)
[2024-12-11 05:50] LABS: Platelet Count 73 Thou/mm3 (140-440)
[2024-12-11 06:13] LABS: Alanine Aminotransferase 70 U/L (10-49); Albumin, Serum 2.8 gm/dL (3.4-4.8); Albumin/Globulin Ratio 1.2 (1.2-2.2); Alkaline Phosphatase 237 U/L (46-116); Anion Gap 17 (7-16); Aspartate Amino Transferase 95 U/L (0-34); BUN/Creatinine Ratio 22 Ratio (12-20); Bilirubin,Total 4.8 mg/dL (0.3-1.2); Blood Urea Nitrogen 92 mg/dL (9-23); Calcium 8.1 mg/dL (8.3-10.6); Calcium (Corrected) 9.1 mg/dL (8.5-10.1); Carbon Dioxide 17.1 mMol/L (20.0-31.0); Chloride 104 mMol/L (98-107); Creatinine (Component) 4.2 mg/dL (0.6-1.3); Estimated Creatinine Clearance 14.0 mL/min (>60); Globulin 2.4 gm/dL (2.3-3.5); Glucose 148 mg/dL (74-106); Osmolality,Calculated 306 (275-295); Potassium 4.1 mMol/L (3.4-5.1); Sodium 138 mMol/L (136-145); Total Protein 5.2 gm/dL (5.7-8.2); eGFR 11 See Note
--- NOTE | 2024-12-11 07:28 | PC.NURSE ---
called son, Toby, to do med rec and to ask admission questions but was unable to get a hold of him. Admission was done based on hx from previous admission. Day shift RN was made aware. Called a second phone number available in the system but not success.
--- NOTE | 2024-12-11 07:34 | PD.NEPHCONS ---
History of Present Illness Data of Consult Requesting Physician: Dwayne Nino MD Primary Care Provider: Physician No Primary/Family Consult Narrative History of present illness: 64 yr old female male. Past medical history is significant for cirrhosis, MASH Psoriatec arthritis, depression, chronic pain. The patient presents with altered mental status, no family members around. Nephrology is consulted for EDY. pt is feeling better. awake and alrt now. seen with resident on bedside. EDY improving cc:: cc: Dwayne Nino MD Review of Systems Review of Systems Systems Reviewed: All systems reviewed, normal except as documented Meds Home Medications and Allergies Home Medications ?Medication ?Instructions ?Recorded ?Confirmed ?Type duloxetine 60 mg capsule,delayed 60 mg PO BID 05/08/24 12/12/24 History release lamotrigine 200 mg tablet 200 mg PO DAILY 05/08/24 12/12/24 History apremilast 30 mg tablet (Otezla) 30 mg PO BID 12/12/24 12/12/24 History hydrocodone bitartrate 15 mg 15 mg PO Q12H PRN pain 12/12/24 12/12/24 History capsule, oral only, extended rel 12 hr metoprolol succinate 50 mg capsule 50 mg PO QDAY 12/12/24 12/12/24 History sprinkle, ext. release 24 hr oxycodone 5 mg capsule 5 mg PO Q12H PRN pain 12/12/24 12/12/24 History Allergies Allergy/AdvReac Type Severity Reaction Status Date / Time Sulfa (Sulfonamide Allergy Rash Verified 05/07/24 22:05 Antibiotics) Exam Vital Signs Temp Pulse Resp BP Pulse Ox O2 Del Method 97.1 F 97 17 133/82 H 97 Room Air 12/11/24 04:19 12/11/24 04:19 12/11/24 04:19 12/11/24 04:19 12/11/24 04:19 12/11/24 04:19 Results Labs 12/13/24 05:11 12/13/24 05:11 Labs: Short CBC 12/10/24 12/11/24 Range/Units 21:54 04:50 WBC 38.9 H* 32.0 H D (3.6-11.0) Thou/mm3 Hgb 11.8 L 10.4 L (12.0-16.0) g/dL Hct 34.6 L 30.5 L (36.0-46.0) % Plt Count 99 L 73 L D (140-440) Thou/mm3 BMP 12/10/24 12/11/24 21:54 04:50 Sodium 136 138 Potassium 4.1 4.1 Chloride 102 104 Carbon Dioxide 17.9 L 17.1 L BUN 79 H 92 H Creatinine 4.4 H* 4.2 H* Glucose 111 H 148 H Calcium 8.9 8.1 L Liver Function 12/10/24 12/11/24 Range/Units 21:54 04:50 Total Bilirubin 5.1 H 4.8 H (0.3-1.2) mg/dL AST 106 H 95 H (0-34) U/L ALT 82 H 70 H (10-49) U/L Alkaline Phosphatase 218 H 237 H (46-116) U/L Albumin 3.2 L 2.8 L (3.4-4.8) gm/dL Urine 12/10/24 Range/Units 23:11 Urine Color Yellow (Lt Yel-Yel) Urine Clarity Turbid A (Clear/Hazy) Urine pH 5.5 (5.0-7.0) Ur Specific [place] 1.013 (1.001-1.035) Urine Protein 1+ A (Neg - Trace) Urine Glucose (UA) Negative (Negative) Assessment & Plan Assessment and plan (1) Acute kidney injury: Status: Acute Assessment and plan: Acute kidney injury in this patient is due to hypoperfusion to the kidneys and due to sepsis. Creatinine is improving with IV hydration. Less likely hepatorenal syndrome, hepatorenal syndrome is a diagnosis of exclusion. Kidney ultrasound reviewed No hydronephrosis Showed mild scarring of the kidneys Creatinine was normal in April of this year. Continue with IV hydration. Her sodium level is slightly high side so can change IV fluid to Ringer lactate or half NS. Discussed plan with the resident. Continue with supportive care Avoid nephrotoxic medications Continue with renal panel daily and monitor kidney function and electrolytes. (2) Hypertension: Status: Acute (3) UTI (urinary tract infection): Status: Acute
--- NOTE | 2024-12-11 08:06 | PD.ADDPROG ---
Addendum Progress Note Addendum Date of report being addended: 12/11/24 Narrative: A 64-year-old female with MOONEY cirrhosis, esophageal varices, psoriatic arthritis, chronic back pain, hypertension presented with altered mental status. Hemodynamically stable, significant leukocytosis WBC 32, thrombocytopenia with platelets 73, EDY with creatinine 4.2 and significantly elevated T. bili 4.8 with moderately elevated LFTs. Noted to have lactic acidosis 3.2 which normalized following initial resuscitation. Lumbar puncture obtained revealing mildly elevated proteins otherwise unremarkable. Blood cultures pending. CT head unremarkable, CT abdomen/pelvis did reveal enlarged uterus. Patient likely has hepatic encephalopathy along with sepsis secondary to UTI, additionally there is a uterine mass that needs further evaluation. - Continue IV Protonix, hold lactulose as patient appears dehydrated - continue Zosyn empirically, no significant ascites or abdominal tenderness concerning for SBP - continue sodium bicarbonate infusion for EDY and active infection. - Will obtain pelvic ultrasound to evaluate for large uterus, start on doxycycline 100 mg IV twice daily for potential PID. - Consulted nephrology for further input. - Continue close neurological monitoring, will consult neurology, -
[2024-12-11] MEDS: DOXYCYCLINE INJ 100 MG in SODIUM CHLORIDE 0.9% (POP) 100 ML IV ×2 (09:13→20:11)
[2024-12-11 11:09] LABS: Band Neutrophils (Manual) 11 % (0-6); Lymphocytes (Manual) 4 % (20-44); Metamyelocytes (Manual) 1 % (0-0); Monocytes (Manual) 5 % (2-9); Neutrophils (Manual) 79 % (50-70)
[2024-12-11 11:24] LABS: Slide Review Platelets confirmed
[2024-12-11] MEDS: SODIUM CHLORIDE 0.9% 1000 ML 1,000 ML 333 ML IV (11:29)
--- NOTE | 2024-12-11 12:15 | PC.NURSE ---
Pt altered. Unable to provide med rec. Called Son (Point of contact) Son unable to give medication information as well.
--- NOTE | 2024-12-11 12:59 | PC.SS ---
CENA conducted bedside contact with the patient conduct initial assessment and to discuss discharge planning.? Patient altered.? CENA completed phone contact with patient?s son, Toby Louie ; to complete initial assessment.? Patient resides at home with son, Chito Hogue.? Patient does not utilize DME to assist with ambulation.? Patient does not utilize home oxygen.? Patient possesses ability to complete ADL?s independently.? Patient?s surrogate medical decision maker is son, Toby Frausto.? Unable to confirm patient?s PCP.? Plan is for the patient to return home at the time of discharge.? Family will provide transportation on behalf of the patient.? No further discharge needs identified by the patient.? No further intervention required at this time, manager social responsibility will be available to address any further concerns.? Next of Kin: Toby Frausto D/C Plan: Home
--- NOTE | 2024-12-11 14:14 | PC.NURSE ---
Patient has had 4 large loose dark stools today. Called Dr. Coronado and made aware.
--- NOTE | 2024-12-11 14:18 | XR_ITS ---
Examination: Pelvic ultrasound, transabdominal, complete Technique: Transabdominal ultrasound of the pelvis performed using grayscale imaging Date and time of exam: December 11, 2024, 1457 hours INDICATIONS: CT examination December 10, 2024 enlarged fundus of the uterus FINDINGS: Uterus 8.6 cm uterine fundal exophytic mass 3.2 x 2.8 x 2.9 cm Endometrial stripe 0.4 cm Ovaries obscured by bowel gas IMPRESSION: Exophytic uterine fundal mass most consistent with fibroid degeneration 3.2 x 2.8 x 2.9 cm
[2024-12-11] MEDS: OCTREOTIDE ACET INJ 1,000 MCG in SODIUM CHLORIDE 0.9% 100 ML 5.1 MCG IV (15:04)
[2024-12-11] MEDS: PANTOPRAZOLE/NS 80MG IV PREMIX 80 MG/100 ML BAG 400 MG IV (15:04)
[2024-12-11 15:20] LABS: Lactate (Lactic Acid) 2.3 mMol/L (0.4-2.0)
[2024-12-11 15:26] LABS: Basophils # (Auto) 0.0 Thou/mm3 (0.0-0.2); Basophils % (Auto) 0 % (0-2.5); Eosinophils # (Auto) 0.0 Thou/mm3 (0.0-0.5); Eosinophils % (Auto) 0 % (0-10); Hematocrit 27.5 % (36.0-46.0); Hemoglobin 9.3 g/dL (12.0-16.0); Immature Granulocytes Auto 2.61 Thou/mm3 (0.00-0.00); Lymphocytes # (Auto) 1.7 Thou/mm3 (1.0-4.8); Lymphocytes % (Auto) 6 % (10-50); Mean Corpuscular HGB Conc 33.8 g/dl (31.0-37.0); Mean Corpuscular Hemoglobin 29.2 pg (25.0-35.0); Mean Corpuscular Volume 87 fL (80-100); Monocytes # (Auto) 2.2 Thou/mm3 (0.0-0.8); Monocytes % (Auto) 7 % (0-12); Neutrophils # (Auto) 24.2 Thou/mm3 (1.8-7.7); Neutrophils % (Auto) 79 % (37-80); Nucleated Red Blood Cell # 0.04 Thou/mm3 (0.00-0.00); Nucleated Red Blood Cell % 0 /100 WBC (0); RDW Standard Deviation 49.8 fL (36.4-46.3); Red Blood Count 3.18 Miln/mm3 (4.00-5.20); White Blood Count 30.7 Thou/mm3 (3.6-11.0)
[2024-12-11] MEDS: PANTOPRAZOLE/NS 80MG IV PREMIX 80 MG/100 ML BAG 10 MG IV ×2 (15:33→23:23)
[2024-12-11 15:40] LABS: Platelet Count 76 Thou/mm3 (140-440)
[2024-12-11 15:41] LABS: Slide Review Platelets confirmed
[2024-12-11 15:47] LABS: Alanine Aminotransferase 61 U/L (10-49); Albumin, Serum 2.5 gm/dL (3.4-4.8); Albumin/Globulin Ratio 1.1 (1.2-2.2); Alkaline Phosphatase 184 U/L (46-116); Anion Gap 15 (7-16); Aspartate Amino Transferase 82 U/L (0-34); BUN/Creatinine Ratio 22 Ratio (12-20); Bilirubin,Total 4.7 mg/dL (0.3-1.2); Blood Urea Nitrogen 87 mg/dL (9-23); Calcium 7.6 mg/dL (8.3-10.6); Calcium (Corrected) 8.8 mg/dL (8.5-10.1); Carbon Dioxide 20.5 mMol/L (20.0-31.0); Chloride 106 mMol/L (98-107); Creatinine (Component) 3.9 mg/dL (0.6-1.3); Estimated Creatinine Clearance 15.2 mL/min (>60); Globulin 2.2 gm/dL (2.3-3.5); Glucose 195 mg/dL (74-106); INR 1.2 (0.9-1.3); Osmolality,Calculated 312 (275-295); Potassium 3.8 mMol/L (3.4-5.1); Prothrombin Time 13.0 Seconds (9.0-12.2); Sodium 141 mMol/L (136-145); Total Protein 4.7 gm/dL (5.7-8.2); eGFR 12 See Note
--- NOTE | 2024-12-11 16:22 | PC.NURSE ---
In and Out Catheterization performed to collect patient labs. Ordered by Dr. Coronado.
[2024-12-11 17:50] LABS: Creatinine,Random Urine 118 mg/dL (30-125); Protein Total, Random Urine 66 mg/dL (1-14); Sodium,Urine Random 18.1 mMol/L (20.0-110.0)
[2024-12-11 18:19] LABS: Reflex Lactate? Y
--- NOTE | 2024-12-11 18:20 | PC.NURSE ---
Pt's son called and wanted an update from the DrKeysha about the patient. Called Dr. Coronado and made aware. Patient's blood sugar is trending up. Dr. Coronado aware and okay with the sugar as of now. Patient is NPO so no sliding scale at this time.
[2024-12-11 18:51] LABS: Lactic Acid, 3 HR 2.3 mMol/L (0.4-2.0)
[2024-12-11] MEDS: SODIUM CHLORIDE 0.9% 1000 ML 1,000 ML 500 ML IV (20:30)
[2024-12-12] VITALS (8 sets, daily range): BP systolic 121–153; BP diastolic 58–75; PULSE 82–96; RESP 14–96; TEMP 36.1–36.6; O2SAT 94–100
[2024-12-12] MEDS: Sodium Bicarb 8.4% 50ml Vial* 88.23 MEQ in DEXTROSE 5%-WATER 500 ML 100 MEQ IV ×2 (01:05→06:41)
[2024-12-12 06:38] LABS: Alanine Aminotransferase 49 U/L (10-49); Albumin, Serum 2.5 gm/dL (3.4-4.8); Albumin/Globulin Ratio 1.2 (1.2-2.2); Alkaline Phosphatase 169 U/L (46-116); Anion Gap 14 (7-16); Aspartate Amino Transferase 67 U/L (0-34); BUN/Creatinine Ratio 27 Ratio (12-20); Bilirubin,Total 4.3 mg/dL (0.3-1.2); Blood Urea Nitrogen 92 mg/dL (9-23); Calcium 7.3 mg/dL (8.3-10.6); Calcium (Corrected) 8.5 mg/dL (8.5-10.1); Carbon Dioxide 23.9 mMol/L (20.0-31.0); Chloride 107 mMol/L (98-107); Creatinine (Component) 3.4 mg/dL (0.6-1.3); Estimated Creatinine Clearance 17.4 mL/min (>60); Globulin 2.1 gm/dL (2.3-3.5); Glucose 237 mg/dL (74-106); Osmolality,Calculated 325 (275-295); Potassium 3.3 mMol/L (3.4-5.1); Sodium 145 mMol/L (136-145); Total Protein 4.6 gm/dL (5.7-8.2); eGFR 14 See Note
[2024-12-12 08:11] LABS: Basophils # (Auto) 0.1 Thou/mm3 (0.0-0.2); Basophils % (Auto) 1 % (0-2.5); Eosinophils # (Auto) 0.0 Thou/mm3 (0.0-0.5); Eosinophils % (Auto) 0 % (0-10); Hematocrit 26.0 % (36.0-46.0); Immature Granulocytes Auto 2.10 Thou/mm3 (0.00-0.00); Lymphocytes # (Auto) 1.7 Thou/mm3 (1.0-4.8); Lymphocytes % (Auto) 8 % (10-50); Mean Corpuscular HGB Conc 33.8 g/dl (31.0-37.0); Mean Corpuscular Hemoglobin 29.7 pg (25.0-35.0); Mean Corpuscular Volume 88 fL (80-100); Monocytes # (Auto) 1.2 Thou/mm3 (0.0-0.8); Monocytes % (Auto) 5 % (0-12); Neutrophils # (Auto) 16.9 Thou/mm3 (1.8-7.7); Neutrophils % (Auto) 77 % (37-80); Nucleated Red Blood Cell # 0.00 Thou/mm3 (0.00-0.00); Nucleated Red Blood Cell % 0 /100 WBC (0); RDW Standard Deviation 50.4 fL (36.4-46.3); Red Blood Count 2.96 Miln/mm3 (4.00-5.20); White Blood Count 22.1 Thou/mm3 (3.6-11.0)
[2024-12-12] MEDS: LACTULOSE SYRUP 20 GM/30 ML UDC PO ×2 (08:16→20:14)
[2024-12-12 08:24] LABS: Hemoglobin 8.8 g/dL (12.0-16.0); Platelet Count 65 Thou/mm3 (140-440)
[2024-12-12] MEDS: DOXYCYCLINE INJ 100 MG in SODIUM CHLORIDE 0.9% (POP) 100 ML IV ×2 (08:33→20:13)
[2024-12-12 09:06] LABS: Slide Review Platelets confirmed
[2024-12-12] MEDS: OCTREOTIDE ACET INJ 1,000 MCG in SODIUM CHLORIDE 0.9% 100 ML 5.1 MCG IV (09:37)
[2024-12-12] MEDS: PIPER/TAZO 3.375 GM PREMIX 3.375 GM/50 ML BAG IV ×2 (09:39→20:13)
--- NOTE | 2024-12-12 11:55 | ESPR_ITS ---
Documentation for date of: 12/12/24 Subjective - Hospitalist Subjective Interval history: Significantly improved mentation, able to talk, recognize family members at bedside. Complains of abdominal discomfort, no more melanic bloody bowel movements. Hemoglobin stable, leukocytosis is improved, creatinine level slightly improving currently 3.4. Review of Systems Review of Systems Narrative Review of Systems: Negative except as above Exam Vital Signs Temp Pulse Resp BP Pulse Ox O2 Del Method 97.0 F 88 14 142/69 H 100 Room Air 12/12/24 08:00 12/12/24 08:00 12/12/24 08:00 12/12/24 08:00 12/12/24 08:00 12/12/24 08:00 Additional findings Additional findings: Gen: AO x 2 however still confused Skin: warm, fair turgor, no ecchymosis HEENT: NCAT, HILDA, moist mucous membranes Neck: supple, no JVD, no thyromegaly Lungs: clear to auscultation CV: regular rate and rhythm, no murmurs, no edema Abd: soft and non tender, normoactive bowel sounds : no CVA tenderness Ext: no calf tenderness., min small joint deformities, no joint effusion, full ROM of large joints, Neuro: AOx2, confused, moves all extremities Psych: calm, cooperative, not depressed. Objective - Hospitalist Labs Diagram: 12/12/24 07:02 12/12/24 05:40 Labs: Laboratory Results - last 24 hr 12/11/24 12/11/24 12/11/24 15:10 16:10 18:43 WBC 30.7 H RBC 3.18 L Hgb 9.3 L Hct 27.5 L MCV 87 MCH 29.2 MCHC 33.8 RDW Std Deviation 49.8 H Plt Count 76 L Neut % (Auto) 79 Lymph % (Auto) 6 L [place] % (Auto) 7 Eos % (Auto) 0 Baso % (Auto) 0 Neut # (Auto) 24.2 H Lymph # (Auto) 1.7 [place] # (Auto) 2.2 H Eos # (Auto) 0.0 Baso # (Auto) 0.0 Immature Gran # (Auto) 2.61 H Absolute Nucleated RBC 0.04 H Immature Gran % 9 H Nucleated RBC % 0 PT 13.0 H INR 1.2 Sodium 141 Potassium 3.8 Chloride 106 Carbon Dioxide 20.5 Anion Gap 15 BUN 87 H Creatinine 3.9 H Estim Creat Clear Calc 15.2 L eGFR 12 L* BUN/Creatinine Ratio 22 H Glucose 195 H Calculated Osmolality 312 H Lactic Acid 2.3 H 2.3 H Calcium 7.6 L Corrected Calcium 8.8 Total Bilirubin 4.7 H AST 82 H ALT 61 H Alkaline Phosphatase 184 H D Total Protein 4.7 L Albumin 2.5 L Globulin 2.2 L Albumin/Globulin Ratio 1.1 L Ur Random Creatinine 118 U Random Total Protein 66 H Ur Random Sodium 18.1 L Misc Test Result Platelets confirmed 12/12/24 12/12/24 05:40 07:02 WBC 22.1 H D RBC 2.96 L Hgb 8.8 L Hct 26.0 L MCV 88 MCH 29.7 MCHC 33.8 RDW Std Deviation 50.4 H Plt Count 65 L Neut % (Auto) 77 Lymph % (Auto) 8 L [place] % (Auto) 5 Eos % (Auto) 0 Baso % (Auto) 1 Neut # (Auto) 16.9 H Lymph # (Auto) 1.7 [place] # (Auto) 1.2 H Eos # (Auto) 0.0 Baso # (Auto) 0.1 Immature Gran # (Auto) 2.10 H Absolute Nucleated RBC 0.00 Immature Gran % 10 H Nucleated RBC % 0 PT INR Sodium 145 Potassium 3.3 L D Chloride 107 Carbon Dioxide 23.9 Anion Gap 14 BUN 92 H Creatinine 3.4 H D Estim Creat Clear Calc 17.4 L eGFR 14 L* BUN/Creatinine Ratio 27 H Glucose 237 H Calculated Osmolality 325 H Lactic Acid Calcium 7.3 L Corrected Calcium 8.5 Total Bilirubin 4.3 H AST 67 H ALT 49 Alkaline Phosphatase 169 H Total Protein 4.6 L Albumin 2.5 L Globulin 2.1 L Albumin/Globulin Ratio 1.2 Ur Random Creatinine U Random Total Protein Ur Random Sodium Misc Test Result Platelets confirmed Assessment & Plan Patient Synopsis A 64-year-old female with MOONEY cirrhosis, esophageal varices, psoriatic arthritis, chronic back pain, hypertension presented with altered mental status. Hemodynamically stable, significant leukocytosis improved to WBC 22, thrombocytopenia worsened improving to 3.4 with platelet of 65, EDY with creatinine improving to creatinine 3.4 and significantly elevated T. bili 4.8 with moderately elevated LFTs. Noted to have lactic acidosis 3.2 which normalized following initial resuscitation. Lumbar puncture obtained revealing mildly elevated proteins otherwise unremarkable. Blood cultures pending. CT head unremarkable, CT abdomen/pelvis did reveal enlarged uterus likely containing a mass. US pelvis confirmed uterine mass. Patient likely has hepatic encephalopathy along with sepsis secondary to UTI, additionally there is a uterine mass (unlikely to be infective/abscess) that needs to be worked up further following patient stabilization. - Continue IV Protonix drip and octreotide, - Resume lactulose 20 mg twice daily, patient was able to tolerate p.o. without any further bleeding liquid diet. - continue Zosyn empirically, no significant ascites or abdominal tenderness concerning for SBP - Discontinue sodium bicarb, start on NS at 150 an hour. - Continue doxycycline 100 mg IV twice daily for potential PID. - Consulted nephrology for further input, will repeat bladder scan as patient has oliguria. - Consult TERMINAL MAKEUP OPERATOR once patient's mentation is improved. - Resume lamotrigine. Consulted GI for endoscopy evaluation - Will keep n.p.o. except meds till GI evaluation. No DVT prophylaxis needed wih active bleeding and coagulopathy Time Spent with Patient Time: Total time spent is greater than 50% in coordination of care (as documented) at patient's floor/unit and/or counseling patient: Time with patient: Greater than 35 minutes Reason for Continued Stay Reason for continued stay: acute renal failure, further dx testing and IV antibiotics Quality Measures Quality Measures none
[2024-12-12] MEDS: SODIUM CHLORIDE 0.9% 1000 ML 1,000 ML 150 ML IV (17:24)
[2024-12-12] MEDS: PANTOPRAZOLE/NS 80MG IV PREMIX 80 MG/100 ML BAG 10 MG IV (19:18)
[2024-12-12] MEDS: HYDROmorphone INJ 2 MG/ML VIAL 1 MG IVP (23:31)
[2024-12-13] VITALS (16 sets, daily range): BP systolic 124–167; BP diastolic 65–99; PULSE 71–91; RESP 16–98; TEMP 36.1–36.6; O2SAT 92–99
[2024-12-13] MEDS: SODIUM CHLORIDE 0.9% 1000 ML 1,000 ML 150 ML IV (01:44)
[2024-12-13] MEDS: OCTREOTIDE ACET INJ 1,000 MCG in SODIUM CHLORIDE 0.9% 100 ML 5.1 MCG IV (04:51)
[2024-12-13] MEDS: PANTOPRAZOLE/NS 80MG IV PREMIX 80 MG/100 ML BAG 10 MG IV ×2 (04:54→18:17)
[2024-12-13 06:09] LABS: Basophils # (Auto) 0.0 Thou/mm3 (0.0-0.2); Basophils % (Auto) 0 % (0-2.5); Eosinophils # (Auto) 0.2 Thou/mm3 (0.0-0.5); Eosinophils % (Auto) 1 % (0-10); Hematocrit 26.0 % (36.0-46.0); Immature Granulocytes Auto 3.72 Thou/mm3 (0.00-0.00); Lymphocytes # (Auto) 2.9 Thou/mm3 (1.0-4.8); Lymphocytes % (Auto) 11 % (10-50); Mean Corpuscular HGB Conc 33.8 g/dl (31.0-37.0); Mean Corpuscular Hemoglobin 30.3 pg (25.0-35.0); Mean Corpuscular Volume 90 fL (80-100); Monocytes # (Auto) 1.9 Thou/mm3 (0.0-0.8); Monocytes % (Auto) 7 % (0-12); Neutrophils # (Auto) 19.0 Thou/mm3 (1.8-7.7); Neutrophils % (Auto) 68 % (37-80); Nucleated Red Blood Cell # 0.08 Thou/mm3 (0.00-0.00); Nucleated Red Blood Cell % 0 /100 WBC (0); Platelet Count 100 Thou/mm3 (140-440); RDW Standard Deviation 54.1 fL (36.4-46.3); Red Blood Count 2.90 Miln/mm3 (4.00-5.20); White Blood Count 27.7 Thou/mm3 (3.6-11.0)
[2024-12-13 06:12] LABS: Hemoglobin 8.8 g/dL (12.0-16.0)
[2024-12-13 06:43] LABS: Alanine Aminotransferase 47 U/L (10-49); Albumin, Serum 2.7 gm/dL (3.4-4.8); Albumin/Globulin Ratio 1.1 (1.2-2.2); Alkaline Phosphatase 219 U/L (46-116); Anion Gap 11 (7-16); Aspartate Amino Transferase 74 U/L (0-34); BUN/Creatinine Ratio 28 Ratio (12-20); Bilirubin,Total 4.0 mg/dL (0.3-1.2); Blood Urea Nitrogen 75 mg/dL (9-23); Calcium 7.6 mg/dL (8.3-10.6); Calcium (Corrected) 8.6 mg/dL (8.5-10.1); Carbon Dioxide 24.7 mMol/L (20.0-31.0); Chloride 110 mMol/L (98-107); Creatinine (Component) 2.7 mg/dL (0.6-1.3); Estimated Creatinine Clearance 22.5 mL/min (>60); Globulin 2.5 gm/dL (2.3-3.5); Glucose 200 mg/dL (74-106); Osmolality,Calculated 318 (275-295); Potassium 3.5 mMol/L (3.4-5.1); Sodium 146 mMol/L (136-145); Total Protein 5.2 gm/dL (5.7-8.2); eGFR 19 See Note
[2024-12-13] MEDS: METOCLOPRAMIDE 5 MG TABLET 10 MG PO (08:02)
[2024-12-13] MEDS: LACTULOSE SYRUP 20 GM/30 ML UDC PO ×2 (08:02→21:19)
[2024-12-13] MEDS: DOXYCYCLINE INJ 100 MG in SODIUM CHLORIDE 0.9% (POP) 100 ML IV ×2 (08:04→21:19)
[2024-12-13] MEDS: PIPER/TAZO 3.375 GM PREMIX 3.375 GM/50 ML BAG IV ×2 (08:04→21:19)
[2024-12-13] MEDS: RINGERS LACTATED 1000 ML 1,000 ML 150 ML IV (10:02)
[2024-12-13] MEDS: RINGERS LACTATED 1000 ML 1,000 ML 75 ML IV ×2 (10:55→21:21)
--- NOTE | 2024-12-13 13:25 | ESPR_ITS ---
<Statement entered by Lillian Ortiz MD - 12/13/24 15:46> 64-year-old female with past medical history of Bear cirrhosis, EV, Psoriatec arthritis, chronic back pain, hypertension was admitted for acute metabolic encephalopathy in the setting of hypercalcemia and sepsis due to UTI. Overnight patient had a episode of bloody vomit. Labs and vitals were reviewed. WBC went up from 22-27.7, could be reactive, no fever was noted. However we will continue close monitor. #Acute metabolic encephalopathy resolved Patient was seen and examined at bedside, sons was at bedside, patient appears to be at baseline. #Acute GI bleed #History of esophageal varices #History of cirrhosis #Small ascites Continue PPI and octreotide Added Coreg keep zosyn for GI profilaxis GI is on board, plan is to do EGD. NPO #Prerenal EDY versus hepatorenal(less likely given improvement of RF with IVF) Renal function significantly improved, creatinine down from 4.2-2.7 Monitor renal function closely Avoid nephrotoxins I personally saw and examined the patient and discussed the assessment and plan with the entire medicine team, including my attending , Lillian Ortiz M.D. PGY-3 Disclaimer: Despite multiple revisions, due to the dictation software being used, the document bellow may not be free of grammatical errors including phonetic/typographic errors. However, this does not deter from our commitment to providing health care in the patient's best interest in mind. Documentation for date of: 12/13/24 Subjective Subjective Interval history: Labs reviewed and patient examined at the bedside. Patient is currently on IV Zosyn 3.375 g and IV doxycycline milligram IV twice daily. Switched IVF NS to LR 75 mL/h patient's sodium level was high with 146. Patient renal function improving with creatinine decreasing from 3.4 to 2.7. According to patient, ever since the patient has been hospitalized, her psoriatic arthritis has flared up causing sharp pain and all over her body. Night team gave the patient dilaudid 1mg IVx1 which made the patient's nauseous. Patient had an episode of hematemesis this morning. Before she was admitted to the hospital, she also had episodes of dark stool. Currently pending EGD. Patient's WBC increased from 22 to 27.7 this morning. Based on her afebrile state, likely due to reactive leukocytosis from her psoriatic arthritis. Will continue to monitor. Patient still has ongoing sharp pain all over her body that has worsened ever since she was admitted. Denies chest pain, palpation, SOB, fevers or chills. Patient noted that she had psoriatic arthritis for 22 years and has been taking vicodin (hydrocodone, and Acetaminophen) for many years, which eventually caused her to have cirrhosis. Patient does not want tylenol as that was the culprit of her cirrhosis. Exam Vital Signs Temp Pulse Resp BP Pulse Ox O2 Del Method 96.9 F 84 18 124/78 94 L Room Air 12/13/24 08:00 12/13/24 12:00 12/13/24 08:25 12/13/24 08:00 12/13/24 08:00 12/13/24 08:00 Narrative Exam General: Distressed, Frail, AAO x3 Eye: PERRL, EOMI, normal conjunctiva, no scleral icterus HENT: Normocephalic, atraumatic, hearing intact to conversation at normal volume, moist oral mucosa Neck: Supple, non-tender, no JVD, no lymphadenopathy Lungs: Non-labored respirations, symmetric chest rise, Clear to auscultate bilaterally, No wheezing, rhonchi, crackles Heart: Peripheral pulses intact bilaterally, Regular Rate and Rhythm. Abdomen: Soft, non-tender, non-distended, no palpable masses Musculoskeletal: Normal range of motion and strength, No cyanosis or edema, No visible joint swelling Skin: Skin is warm, dry, no rashes or lesions. Psychiatric: Cooperative, appropriate mood and affect, Awake and alert, not agitated Neuro: Cranial nerves II-XII grossly intact. Strength 3/5 throughout. Sensations intact to light touch. Objective Labs 12/14/24 04:40 12/14/24 04:40 Labs: Laboratory Results - last 24 hr 12/13/24 12/13/24 05:11 06:14 WBC 27.7 H D RBC 2.90 L Hgb 8.8 L Hct 26.0 L MCV 90 MCH 30.3 MCHC 33.8 RDW Std Deviation 54.1 H Plt Count 100 L D Neut % (Auto) 68 Lymph % (Auto) 11 Cache % (Auto) 7 Eos % (Auto) 1 Baso % (Auto) 0 Neut # (Auto) 19.0 H Lymph # (Auto) 2.9 Cache # (Auto) 1.9 H Eos # (Auto) 0.2 Baso # (Auto) 0.0 Immature Gran # (Auto) 3.72 H Absolute Nucleated RBC 0.08 H Immature Gran % 13 H Nucleated RBC % 0 Sodium 146 H Potassium 3.5 Chloride 110 H Carbon Dioxide 24.7 Anion Gap 11 BUN 75 H Creatinine 2.7 H D Estim Creat Clear Calc 22.5 L eGFR 19 L BUN/Creatinine Ratio 28 H Glucose 200 H Calculated Osmolality 318 H Calcium 7.6 L Corrected Calcium 8.6 Total Bilirubin 4.0 H AST 74 H ALT 47 Alkaline Phosphatase 219 H D Total Protein 5.2 L Albumin 2.7 L Globulin 2.5 Albumin/Globulin Ratio 1.1 L Blood Type A Negative Antibody Screen NEGATIVE Crossmatch See Detail Blood Bank Wristband ID Yes Quality Measures Quality Measures none Assessment & Plan Assessment Current Active Medications: Generic Name Dose Route Start Last Admin Trade Name Freq PRN Reason Stop Dose Admin Acetaminophen 650 mg 12/11/24 01:23 Acetaminophen 325 Mg Tablet PO 01/10/25 01:22 Q6H PRN Fever >101.5 Carvedilol 3.125 mg 12/13/24 17:30 Carvedilol 3.125 Mg Tablet PO 01/12/25 17:29 BIDWM JANELL Piperacillin/Tazobactam/Dextrose 3.375 gm in 50 mls @ 12.5 mls/hr 12/11/24 09:00 12/13/24 08:04 Zosyn IV 12/18/24 08:59 12.5 mls/hr Q12HR JANELL Administration Protocol Doxycycline Hyclate 100 mg/ 100 mls @ 100 mls/hr 12/11/24 09:00 12/13/24 08:04 Sodium Chloride IV 12/18/24 08:59 100 mls/hr BID JANELL Administration Pantoprazole Sodium 80 mg in 100 mls @ 10 mls/hr 12/11/24 14:19 12/13/24 04:54 Protonix/Ns 80mg Iv Premix IV 12/14/24 12:18 10 mls/hr Q10H JANELL Administration Octreotide Acetate 1,000 mcg/ 102 mls @ 5.1 mls/hr 12/11/24 14:21 12/13/24 04:51 Sodium Chloride IV 12/16/24 14:21 50 mcg/hr .Q20H JANELL 5.1 mls/hr Protocol Administration 50 MCG/HR Lactated Ringer's 1,000 mls @ 75 mls/hr 12/13/24 10:51 12/13/24 10:55 Lactated Ringers IV 12/14/24 13:30 75 mls/hr .[id number] JANELL Administration Lactulose 20 gm 12/12/24 21:00 12/13/24 08:02 Lactulose Syrup 20 Gm/30 Ml Udc PO 01/11/25 20:59 20 gm BID JANELL Administration Protocol Lamotrigine 200 mg 12/12/24 09:00 12/13/24 08:02 Lamotrigine 100 Mg Tablet PO 01/11/25 08:59 200 mg DAILY JANELL Administration Metoclopramide HCl 10 mg 12/13/24 07:50 12/13/24 08:02 Metoclopramide 5 Mg Tablet PO 01/12/25 07:49 10 mg Q8HR PRN Administration NAUSEA OR VOMITING Plan The patient is a 64 yr old female male. Past medical history is significant for cirrhosis, MASH Psoriatec arthritis, depression, chronic pain. The patient presents with altered mental status. Patient was admitted for management of sepsis 2/2 UTI #Sepsis #2/2 Complicated UTI -Clinical picture meets 3/4 SIRS criteria: T 98.1 (>100.4 or <96.8F), RR 23 (>20/min), HR 101 (>90/min), WBC 38.9 (>12 or <4K or Bands >10%). LA 3.2 (>2), and UTI as a source of infection =Severe Sepsis -UA showed Turbid yellow, Urine Protein 1+, Blood 2+, Leukocyte Esterase positive, RBC 29, WBC: 459, Urine bacteria 3+ -CXR (12/10/2024): Mild vascular congestion Plan: - Continue 1 L IV LR 75ml/hr maintenance fluid - On IV Zoysn 3.375g (12/11-) and IV Doxycyclin 100mg bid - Daily labs BMP, CBC, and electrolytes - Pending BCx and UCx #Upper vs Lower GI bleed #Hx of GI bleed and Esophageal varices (05/09/2024) -Patient had multiple episodes of hematochezia before admission. -Patient had an episode of bloody emesis in the morning of 12/13 after given Dilaudid -Hx of GI bleed and Esophageal varices -Hemoglobin level was initially 11.8 on admission. Now decreased go 8.8 on 12/13 -CT abd/pelvis (12/10/2024): Cirrhosis, Hepatosplenomegaly, Esophageal and perigastric varices, Small ascites, No bowel obstruction, Enlarged fundus of the uterus -Pelvis US (12/11/2024): Exophytic uterine fundal mass most consistent with fibroid degeneration 3.2 x 2.8 x 2.9 cm Plan: -Likely EGD today -On Octreotide IV 50mcg -Monitor H&H -Transfuse if hemoglobin less than 7 -On IV protonix 80mg. -Consulted GI, appreciate recommendations. #Ascites #Cirrhosis -Patient noted that she had psoriatic arthritis for 22 years and has been taking vicodin (hydrocodone, and Acetaminophen) for many years, which eventually caused her to have cirrhosis. Patient does not want tylenol as that was the culprit of her cirrhosis. -CT abd/pelvis (12/10/2024): Cirrhosis, Hepatosplenomegaly, Esophageal and perigastric varices, Small ascites, No bowel obstruction, Enlarged fundus of the uterus Plan: -On IV protonix 80mg, IV Octreotide 50mcg, Lactulose 20mg PO bid #Psoriatic arthritis #Chronic pain -Patient noted that she had psoriatic arthritis for 22 years and has been taking vicodin (hydrocodone, and Acetaminophen) for many years, which eventually caused her to have cirrhosis. Patient does not want tylenol as that was the culprit of her cirrhosis. -During hospitalization, it flared up causing sharp pain and all over her body. Night team gave the patient dilaudid 1mg IVx1 which made the patient's nauseous and causing episode of hematemesis on 12/13 morning. -Advise against Dilaudid. Patient noted she was handling pain fine by herself in outpatint setting. -If another episodes of pain, consider [place]. #EDY, Pre-renal #2/2 sepsis -Upon admission, BUN 79 (baseline:9) , Cr 4.4 (Baseline of 0.9), eGFR 11 (Baseline:>60) -Likely prerenal in the setting of sepsis and given improvement with IV fluids Plan: -Started 1 L IV LR 75ml/hr maintenance fluid -Avoid nephrotoxins -Renally dose medication Disposition: Med Surg Diet: NPO GI prophylaxis: IV protonix 80mg DVT prophylaxis: SCD Code: FULL Assessment and plan discussed with my attending physician Dr. Naqvi and Dr. Ortiz (PGY-3) Dr. Alberto (PGY-1) - Internal medicine resident Attending Provider Attestation/Addendum Amberly Kate DO, attest that I was physically present for the [place] portions of the service and evaluated the patient with the resident and I reviewed and discussed the case with the resident and agree with the resident's findings and plans of care as documented above #Acute renal failure, improving #Acute metabolic encephalopathy, improving #Sepsis #Complicated UTI #Hematemesis #Decompensated liver cirrhosis #psoriatic arthritis #chronic pain #hx of GI bleed and esophageal varices Patient is a 64 year old female with Pmhx of psoriatic arthritis, MAFLD, cirrhosis, chronic pain, depression who was admitted for acute renal failure and altered mental status. Her two sons are at bedside who state that the patient?s mental status is much improved. She is less confused currently, but more fatigued. Mental status change was likely due to uremia in the setting of acute renal failure. Patient complains of generalized joint pain due to her psoriatic arthritis, which she has been dealing with over 20 years. Patient states she occasionally take ibuprofen at home since she had developed chronic opioid dependence with hydrocodone and Vicodin. She believes that it was the opioids that led to her cirrhosis. Explained to patient that ibuprofen will also lead to risk of bleeding given history of varies and gastritis. Patient is hesitant with taking dilaudid for her pain. However, explained to patient that she is limited on options with pain control given both her liver and kidneys are compromised. patient had an episode of hematemesis this morning that appeared coffee ground. She is currently on octreotide and protonix. Pending EGD this afternoon. Will continue with current management and f/u with EGD results. H/H otherwise stable. Pending urine cultures at this time.
--- NOTE | 2024-12-13 18:50 | PD.IMCONS ---
HPI Data of Consult Requesting Physician: Dwayne Nino MD Primary Care Provider: Physician No Primary/Family Consult Narrative Reason for consult: Hematemesis History of present illness: 64 years old female comes in for evaluation to the emergency room has history of hematemesis He does have [place] cirrhosis with previous history of esophageal varices psoriatic arthritis essential hypertension She presented with altered mental status because of hypercalcemia and underlying metabolic encephalopathy Right now she she is not confused cc:: cc: Dwayne Nino MD Review of Systems Review of Systems Systems Reviewed: All systems reviewed, normal except as documented Past Medical History Surgical History OTHER SURGICAL HX: As in the history of present illness Meds Home Medications and Allergies Home Medications ?Medication ?Instructions ?Recorded ?Confirmed ?Type duloxetine 60 mg capsule,delayed 60 mg PO BID 05/08/24 12/12/24 History release lamotrigine 200 mg tablet 200 mg PO DAILY 05/08/24 12/12/24 History apremilast 30 mg tablet (Otezla) 30 mg PO BID 12/12/24 12/12/24 History hydrocodone bitartrate 15 mg 15 mg PO Q12H PRN pain 12/12/24 12/12/24 History capsule, oral only, extended rel 12 hr metoprolol succinate 50 mg capsule 50 mg PO QDAY 12/12/24 12/12/24 History sprinkle, ext. release 24 hr oxycodone 5 mg capsule 5 mg PO Q12H PRN pain 12/12/24 12/12/24 History Allergies Allergy/AdvReac Type Severity Reaction Status Date / Time Sulfa (Sulfonamide Allergy Rash Verified 05/07/24 22:05 Antibiotics) Exam Vital Signs Temp Pulse Resp BP Pulse Ox O2 Del Method 97.7 F 84 18 140/70 H 98 Room Air 12/13/24 16:00 12/13/24 16:53 12/13/24 16:00 12/13/24 16:53 12/13/24 16:00 12/13/24 16:00 Constitutional Comments: Chronically ill-appearing Routine Respiratory Exam Comments: Normal to auscultation Routine Abdominal Exam Comments: Soft nontender Results Labs 12/13/24 05:11 12/13/24 05:11 Labs: Short CBC 12/13/24 Range/Units 05:11 WBC 27.7 H D (3.6-11.0) Thou/mm3 Hgb 8.8 L (12.0-16.0) g/dL Hct 26.0 L (36.0-46.0) % Plt Count 100 L D (140-440) Thou/mm3 BMP 12/13/24 05:11 Sodium 146 H Potassium 3.5 Chloride 110 H Carbon Dioxide 24.7 BUN 75 H Creatinine 2.7 H D Glucose 200 H Calcium 7.6 L Liver Function 12/13/24 Range/Units 05:11 Total Bilirubin 4.0 H (0.3-1.2) mg/dL AST 74 H (0-34) U/L ALT 47 (10-49) U/L Alkaline Phosphatase 219 H D (46-116) U/L Albumin 2.7 L (3.4-4.8) gm/dL Assessment and Plan Additional Assessment & Plan Additional Plan: # Hematemesis in the setting of [place] cirrhosis plan N.p.o. consent obtained for fiberoptic esophagogastroduodenoscopy with possible biopsy possible therapeutic intervention under intravenous moderate sedation. Continue octreotide at 50 mcg/h Continue IV Protonix Serial CBC Will follow the patient Thank you very much for the opportunity to participate in the care of this patient
--- NOTE | 2024-12-13 19:50 | PC.NURSE ---
Pt saline locked. Taken to Endo for procedure, family at bedside, will continue to monitor.
[2024-12-14] VITALS (8 sets, daily range): BP systolic 99–136; BP diastolic 60–84; PULSE 60–99; RESP 15–21; TEMP 36.1–36.3; O2SAT 92–99
[2024-12-14 06:13] LABS: Basophils # (Auto) 0.1 Thou/mm3 (0.0-0.2); Basophils % (Auto) 0 % (0-2.5); Eosinophils # (Auto) 0.4 Thou/mm3 (0.0-0.5); Eosinophils % (Auto) 2 % (0-10); Hematocrit 24.5 % (36.0-46.0); Immature Granulocytes Auto 2.86 Thou/mm3 (0.00-0.00); Lymphocytes # (Auto) 3.0 Thou/mm3 (1.0-4.8); Lymphocytes % (Auto) 13 % (10-50); Mean Corpuscular HGB Conc 33.5 g/dl (31.0-37.0); Mean Corpuscular Hemoglobin 29.7 pg (25.0-35.0); Mean Corpuscular Volume 89 fL (80-100); Monocytes # (Auto) 1.5 Thou/mm3 (0.0-0.8); Monocytes % (Auto) 6 % (0-12); Neutrophils # (Auto) 16.5 Thou/mm3 (1.8-7.7); Neutrophils % (Auto) 68 % (37-80); Nucleated Red Blood Cell # 0.05 Thou/mm3 (0.00-0.00); Nucleated Red Blood Cell % 0 /100 WBC (0); Platelet Count 80 Thou/mm3 (140-440); RDW Standard Deviation 53.6 fL (36.4-46.3); Red Blood Count 2.76 Miln/mm3 (4.00-5.20); White Blood Count 24.3 Thou/mm3 (3.6-11.0)
[2024-12-14] MEDS: OCTREOTIDE ACET INJ 1,000 MCG in SODIUM CHLORIDE 0.9% 100 ML 5.1 MCG IV (06:18)
[2024-12-14 06:28] LABS: Hemoglobin 8.2 g/dL (12.0-16.0)
[2024-12-14] MEDS: PANTOPRAZOLE/NS 80MG IV PREMIX 80 MG/100 ML BAG 10 MG IV ×2 (06:36→16:52)
[2024-12-14 07:02] LABS: Alanine Aminotransferase 36 U/L (10-49); Albumin, Serum 2.2 gm/dL (3.4-4.8); Albumin/Globulin Ratio 1.0 (1.2-2.2); Alkaline Phosphatase 208 U/L (46-116); Anion Gap 14 (7-16); Aspartate Amino Transferase 58 U/L (0-34); BUN/Creatinine Ratio 33 Ratio (12-20); Bilirubin,Total 2.3 mg/dL (0.3-1.2); Blood Urea Nitrogen 80 mg/dL (9-23); Calcium 7.2 mg/dL (8.3-10.6); Calcium (Corrected) 8.6 mg/dL (8.5-10.1); Carbon Dioxide 21.9 mMol/L (20.0-31.0); Chloride 107 mMol/L (98-107); Creatinine (Component) 2.4 mg/dL (0.6-1.3); Estimated Creatinine Clearance 25.8 mL/min (>60); Globulin 2.2 gm/dL (2.3-3.5); Glucose 187 mg/dL (74-106); Magnesium 2.1 mg/dL (1.6-2.6); Osmolality,Calculated 313 (275-295); Phosphorous 3.2 mg/dL (2.4-5.1); Potassium 4.1 mMol/L (3.4-5.1); Sodium 143 mMol/L (136-145); Total Protein 4.4 gm/dL (5.7-8.2); eGFR 22 See Note
[2024-12-14] MEDS: LACTULOSE SYRUP 20 GM/30 ML UDC PO ×2 (08:20→20:59)
[2024-12-14] MEDS: DOXYCYCLINE INJ 100 MG in SODIUM CHLORIDE 0.9% (POP) 100 ML IV (08:20)
--- NOTE | 2024-12-14 08:59 | CHAP ---
Patient expressed gratitude for visit and prayer.
--- NOTE | 2024-12-14 09:48 | PC.SS ---
Follow up note: Endoscopy today. Pt will return home upon dc.
[2024-12-14] MEDS: PIPER/TAZO 3.375 GM PREMIX 3.375 GM/50 ML BAG IV (09:57)
[2024-12-14] MEDS: ALBUMIN HUMAN-KJDA 25% IVPB 25 GM/100 ML BTL IV (11:28)
[2024-12-14] MEDS: cefTRIAXone/D5w 1gm IV premix 1 GM/50 ML BAG IV (11:28)
--- NOTE | 2024-12-14 13:14 | ESPR_ITS ---
<Statement entered by Oli Wen MD - 12/14/24 16:40> Patient seen and assessed in hospital bed denies having any concerning symptoms at this time, patient had EGD completed with gastroenterology with esophageal varices banded. Patient will continue on octreotide drip for total of 5 days and we will continue to monitor for any acute blood loss anemia. Patient's EDY likely secondary to prerenal versus HRS is improving we will continue encouraging diet and monitor with morning labs. Patient also states that she follows transplant physician somewhere in [place]; moreover, reiterated importance of following up with them when she is safely discharge from the hospital. I have personally seen and examined the patient. I agree with the resident's assessment and plan as documented below. Oli Wen DO PGY-2 Internal Medicine - GME Documentation for date of: 12/14/24 Subjective Subjective Interval history: No Overnight events. Labs reviewed and patient examined at the bedside. Patient received upper endoscopy yesterday. EGD (12/13/2024): Grade II esophageal varices. banded. Gastritis with hemorrhage, characterized by erythema. Normal examined duodenum. No specimens collected. Patient started on full liquid diet. Patient will received octreotide for total of 5 days. Discontinued doxycycline, Started on IV Ceftriaxone 1g qd for SBP prophylaxis. Started on IV albumin 25g qd 100ml/hr. Physical Therapy has been ordered. Patient's WBC count decreased to 24.4 from 27.7. Hgb decreased to 8.2 from 8.8, likely due to IVF, which has been discontinued. Exam Vital Signs Temp Pulse Resp BP Pulse Ox O2 Del Method O2 Flow Rate 97.3 F 67 19 99/69 94 L Nasal Cannula 1 12/14/24 08:00 12/14/24 08:00 12/14/24 08:00 12/14/24 08:00 12/14/24 08:00 12/14/24 08:00 12/14/24 08:00 Narrative Exam General: Distressed, Frail, AAO x3 Eye: PERRL, EOMI, normal conjunctiva, no scleral icterus HENT: Normocephalic, atraumatic, hearing intact to conversation at normal volume, moist oral mucosa Neck: Supple, non-tender, no JVD, no lymphadenopathy Lungs: Non-labored respirations, symmetric chest rise, Clear to auscultate bilaterally, No wheezing, rhonchi, crackles Heart: Peripheral pulses intact bilaterally, Regular Rate and Rhythm. Abdomen: Soft, non-tender, non-distended, no palpable masses Musculoskeletal: Normal range of motion and strength, No cyanosis or edema, No visible joint swelling Skin: Skin is warm, dry, no rashes or lesions. Psychiatric: Cooperative, appropriate mood and affect, Awake and alert, not agitated Neuro: Cranial nerves II-XII grossly intact. Strength 3/5 throughout. Sensations intact to light touch. Objective Labs 12/14/24 04:40 12/14/24 04:40 Labs: Laboratory Results - last 24 hr 12/14/24 04:40 WBC 24.3 H RBC 2.76 L Hgb 8.2 L Hct 24.5 L MCV 89 MCH 29.7 MCHC 33.5 RDW Std Deviation 53.6 H Plt Count 80 L Neut % (Auto) 68 Lymph % (Auto) 13 [place] % (Auto) 6 Eos % (Auto) 2 Baso % (Auto) 0 Neut # (Auto) 16.5 H Lymph # (Auto) 3.0 [place] # (Auto) 1.5 H Eos # (Auto) 0.4 Baso # (Auto) 0.1 Immature Gran # (Auto) 2.86 H Absolute Nucleated RBC 0.05 H Immature Gran % 12 H Nucleated RBC % 0 Sodium 143 Potassium 4.1 D Chloride 107 Carbon Dioxide 21.9 Anion Gap 14 BUN 80 H Creatinine 2.4 H Estim Creat Clear Calc 25.8 L eGFR 22 L BUN/Creatinine Ratio 33 H Glucose 187 H Calculated Osmolality 313 H Calcium 7.2 L Corrected Calcium 8.6 Phosphorus 3.2 Magnesium 2.1 Total Bilirubin 2.3 H D AST 58 H ALT 36 Alkaline Phosphatase 208 H Total Protein 4.4 L Albumin 2.2 L D Globulin 2.2 L Albumin/Globulin Ratio 1.0 L Quality Measures Quality Measures none Assessment & Plan Assessment Current Active Medications: Generic Name Dose Route Start Last Admin Trade Name Freq PRN Reason Stop Dose Admin Acetaminophen 650 mg 12/11/24 01:23 Acetaminophen 325 Mg Tablet PO 01/10/25 01:22 Q6H PRN Fever >101.5 Carvedilol 3.125 mg 12/13/24 17:30 12/14/24 07:59 Carvedilol 3.125 Mg Tablet PO 01/12/25 17:29 Not Given BIDWM JANELL Octreotide Acetate 1,000 mcg/ 102 mls @ 5.1 mls/hr 12/11/24 14:21 12/14/24 06:18 Sodium Chloride IV 12/16/24 14:21 50 mcg/hr .Q20H JANELL 5.1 mls/hr Protocol Administration 50 MCG/HR Lactated Ringer's 1,000 mls @ 75 mls/hr 12/13/24 10:51 12/13/24 21:21 Lactated Ringers IV 12/14/24 13:30 75 mls/hr .[id number] JANELL Administration Albumin Human 25 gm in 100 mls @ 100 mls/hr 12/14/24 10:45 12/14/24 11:28 Albuminex 25% Ivpb IV 12/17/24 10:44 100 mls/hr QDAY JANELL Administration Ceftriaxone Sodium/Dextrose 1 gm in 50 mls @ 100 mls/hr 12/14/24 11:30 12/14/24 11:28 Rocephin/D5w 1gm Iv Premix IV 12/21/24 11:29 100 mls/hr QDAY JANELL Administration Lactulose 20 gm 12/12/24 21:00 12/14/24 08:20 Lactulose Syrup 20 Gm/30 Ml Udc PO 01/11/25 20:59 20 gm BID JNAELL Administration Protocol Lamotrigine 200 mg 12/12/24 09:00 12/14/24 08:21 Lamotrigine 100 Mg Tablet PO 01/11/25 08:59 200 mg DAILY JANELL Administration Metoclopramide HCl 10 mg 12/13/24 07:50 12/13/24 08:02 Metoclopramide 5 Mg Tablet PO 01/12/25 07:49 10 mg Q8HR PRN Administration NAUSEA OR VOMITING Plan The patient is a 64 yr old female male. Past medical history is significant for cirrhosis, MASH Psoriatec arthritis, depression, chronic pain. The patient presents with altered mental status. Patient was admitted for management of sepsis 2/2 UTI #Sepsis #2/2 Complicated UTI -Clinical picture meets 3/4 SIRS criteria: T 98.1 (>100.4 or <96.8F), RR 23 (>20/min), HR 101 (>90/min), WBC 38.9 (>12 or <4K or Bands >10%). LA 3.2 (>2), and UTI as a source of infection =Severe Sepsis -UA showed Turbid yellow, Urine Protein 1+, Blood 2+, Leukocyte Esterase positive, RBC 29, WBC: 459, Urine bacteria 3+ -CXR (12/10/2024): Mild vascular congestion -Blood Cx and Urine Cx were negative. Plan: - On IV Ceftriaxone 1g qd - Daily labs BMP, CBC, and electrolytes #Upper GI bleed #2/2 Esophageal Varices and Gastritis #Hx of GI bleed and Esophageal varices (05/09/2024) -Patient had multiple episodes of hematochezia before admission. -Patient had an episode of bloody emesis in the morning of 12/13 after given Dilaudid -Hx of GI bleed and Esophageal varices -Hemoglobin level was initially 11.8 on admission. Now decreased go 8.8 on 12/13 -CT abd/pelvis (12/10/2024): Cirrhosis, Hepatosplenomegaly, Esophageal and perigastric varices, Small ascites, No bowel obstruction, Enlarged fundus of the uterus -Pelvis US (12/11/2024): Exophytic uterine fundal mass most consistent with fibroid degeneration 3.2 x 2.8 x 2.9 cm -EGD (12/13/2024): Grade II esophageal varices. banded. Gastritis with hemorrhage, characterized by erythema. Normal examined duodenum. No specimens collected. Plan: -On Octreotide IV 50mcg -Patient started on full liquid diet. Patient will received octreotide for total of 5 days. -Monitor H&H -Transfuse if hemoglobin less than 7 -On IV protonix 80mg. -Consulted GI, appreciate recommendations. #Acute Encephalopathy - Resolving #2/2 Acute Renal Failure -Resolving #2/2 sepsis -Upon admission, BUN 79 (baseline:9) , Cr 4.4 (Baseline of 0.9), eGFR 11 (Baseline:>60) -Likely prerenal in the setting of sepsis and given improvement with IV fluids Plan: -On Ceftriaxone -Avoid nephrotoxins -Renally dose medication #Ascites #Cirrhosis -Patient noted that she had psoriatic arthritis for 22 years and has been taking vicodin (hydrocodone, and Acetaminophen) for many years, which eventually caused her to have cirrhosis. Patient does not want tylenol as that was the culprit of her cirrhosis. -CT abd/pelvis (12/10/2024): Cirrhosis, Hepatosplenomegaly, Esophageal and perigastric varices, Small ascites, No bowel obstruction, Enlarged fundus of the uterus Plan: -On IV protonix 80mg, IV Octreotide 50mcg, Lactulose 20mg PO bid -Started on IV albumin 25g qd 100ml/hr.(12/14-) #Psoriatic arthritis #Chronic pain -Patient noted that she had psoriatic arthritis for 22 years and has been taking vicodin (hydrocodone, and Acetaminophen) for many years, which eventually caused her to have cirrhosis. Patient does not want tylenol as that was the culprit of her cirrhosis. -During hospitalization, it flared up causing sharp pain and all over her body. Night team gave the patient dilaudid 1mg IVx1 which made the patient's nauseous and causing episode of hematemesis on 12/13 morning. -Advise against Dilaudid. Patient noted she was handling pain fine by herself in outpatint setting. -If another episodes of pain, consider [place]. #EDY, Pre-renal #2/2 sepsis -Upon admission, BUN 79 (baseline:9) , Cr 4.4 (Baseline of 0.9), eGFR 11 (Baseline:>60) -Likely prerenal in the setting of sepsis and given improvement with IV fluids Plan: -Started 1 L IV LR 75ml/hr maintenance fluid -Avoid nephrotoxins -Renally dose medication Disposition: Med Surg Diet: Clear liquid diet GI prophylaxis: None DVT prophylaxis: SCD Code: FULL Assessment and plan discussed with my attending physician Dr. Driss Alberto (PGY-1) - Internal medicine resident Attending Provider Attestation/Addendum Amberly Kate, , attest that I was physically present for the [place] portions of the service and evaluated the patient with the resident and I reviewed and discussed the case with the resident and agree with the resident's findings and plans of care as documented above #Acute renal failure, improving #Acute metabolic encephalopathy, improving #Sepsis #Complicated UTI #Hematemesis #Grade III esophageal varices s/p banding #Decompensated liver cirrhosis #Hypoalbuminemia #psoriatic arthritis #chronic pain #hx of GI bleed and esophageal varices Patient is a 64 year old female with Pmhx of psoriatic arthritis, MAFLD, cirrhosis, chronic pain, depression who was admitted for acute renal failure and altered mental status. Mental status is much improved today. Renal function is slightly improved. She is currently on octreotide due to grade III esophageal varices that were noted and banded yesterday during EGD. Will also add albumin that may also help with renal function. Patient has been tolerating PO intake. Blood and urine cultures have been negative. Will continue with rocephin for a total of five days for SBP ppx. Patient reports no chest pain, shortness of breath, abdominal pain, fevers or chills at this time. Patient is to complete a total of 5 days of octreotide as per GI recs. Today is currently day 3
--- NOTE | 2024-12-14 15:53 | PD.IMPROG ---
Documentation for date of: 12/14/24 Subjective Subjective Interval history: Patient underwent upper endoscopy yesterday showing 2-3+ esophageal varices requiring band ligation in total 3 bands were put in Hemoglobin hematocrit 8.2 and 24.5 with a platelet count of 80,000 Exam Vital Signs Temp Pulse Resp BP Pulse Ox O2 Del Method O2 Flow Rate 97.1 F 68 18 136/84 H 97 Nasal Cannula 1 12/14/24 12:00 12/14/24 12:00 12/14/24 12:00 12/14/24 12:00 12/14/24 12:00 12/14/24 12:00 12/14/24 12:00 Objective Labs 12/14/24 04:40 12/14/24 04:40 Labs: Laboratory Results - last 24 hr 12/14/24 04:40 WBC 24.3 H RBC 2.76 L Hgb 8.2 L Hct 24.5 L MCV 89 MCH 29.7 MCHC 33.5 RDW Std Deviation 53.6 H Plt Count 80 L Neut % (Auto) 68 Lymph % (Auto) 13 [place] % (Auto) 6 Eos % (Auto) 2 Baso % (Auto) 0 Neut # (Auto) 16.5 H Lymph # (Auto) 3.0 [place] # (Auto) 1.5 H Eos # (Auto) 0.4 Baso # (Auto) 0.1 Immature Gran # (Auto) 2.86 H Absolute Nucleated RBC 0.05 H Immature Gran % 12 H Nucleated RBC % 0 Sodium 143 Potassium 4.1 D Chloride 107 Carbon Dioxide 21.9 Anion Gap 14 BUN 80 H Creatinine 2.4 H Estim Creat Clear Calc 25.8 L eGFR 22 L BUN/Creatinine Ratio 33 H Glucose 187 H Calculated Osmolality 313 H Calcium 7.2 L Corrected Calcium 8.6 Phosphorus 3.2 Magnesium 2.1 Total Bilirubin 2.3 H D AST 58 H ALT 36 Alkaline Phosphatase 208 H Total Protein 4.4 L Albumin 2.2 L D Globulin 2.2 L Albumin/Globulin Ratio 1.0 L Impressions Impression: Esophageal variceal bleed status post band ligation in total 3 bands put in Hypertensive portal gastropathy with mucosal oozing of blood Continue current management Assessment & Plan A&P Narrative # Hematemesis in the setting of MOONEY cirrhosis plan N.p.o. consent obtained for fiberoptic esophagogastroduodenoscopy with possible biopsy possible therapeutic intervention under intravenous moderate sedation. Continue octreotide at 50 mcg/h Continue IV Protonix Serial CBC Will follow the patient Thank you very much for the opportunity to participate in the care of this patient Time Spent With Patient Time: Total time spent is greater than 50% in coordination of care (as documented) at patient's floor/unit and/or counseling patient:
[2024-12-14 17:49] LABS: Hematocrit 22.6 % (36.0-46.0)
[2024-12-14 18:21] LABS: Hemoglobin 7.3 g/dL (12.0-16.0)
[2024-12-14 22:38] LABS: Hematocrit 22.3 % (36.0-46.0)
[2024-12-14 22:52] LABS: Hemoglobin 7.4 g/dL (12.0-16.0)
[2024-12-15] VITALS (9 sets, daily range): BP systolic 105–138; BP diastolic 53–77; PULSE 60–89; RESP 16–24; TEMP 36.1–36.4; O2SAT 93–97; BMI 34.1
[2024-12-15] MEDS: OCTREOTIDE ACET INJ 1,000 MCG in SODIUM CHLORIDE 0.9% 100 ML 5.1 MCG IV (02:25)
[2024-12-15] MEDS: cefTRIAXone/D5w 1gm IV premix 1 GM/50 ML BAG IV (08:21)
[2024-12-15] MEDS: ALBUMIN HUMAN-KJDA 25% IVPB 25 GM/100 ML BTL IV (08:21)
[2024-12-15 08:29] LABS: Basophils # (Auto) 0.1 Thou/mm3 (0.0-0.2); Basophils % (Auto) 0 % (0-2.5); Eosinophils # (Auto) 0.3 Thou/mm3 (0.0-0.5); Eosinophils % (Auto) 2 % (0-10); Hematocrit 23.5 % (36.0-46.0); Immature Granulocytes Auto 1.58 Thou/mm3 (0.00-0.00); Lymphocytes # (Auto) 1.9 Thou/mm3 (1.0-4.8); Lymphocytes % (Auto) 11 % (10-50); Mean Corpuscular HGB Conc 33.6 g/dl (31.0-37.0); Mean Corpuscular Hemoglobin 30.0 pg (25.0-35.0); Mean Corpuscular Volume 89 fL (80-100); Monocytes # (Auto) 0.7 Thou/mm3 (0.0-0.8); Monocytes % (Auto) 4 % (0-12); Neutrophils # (Auto) 13.2 Thou/mm3 (1.8-7.7); Neutrophils % (Auto) 74 % (37-80); Nucleated Red Blood Cell # 0.00 Thou/mm3 (0.00-0.00); Nucleated Red Blood Cell % 0 /100 WBC (0); Platelet Count 88 Thou/mm3 (140-440); RDW Standard Deviation 51.7 fL (36.4-46.3); Red Blood Count 2.63 Miln/mm3 (4.00-5.20); White Blood Count 17.8 Thou/mm3 (3.6-11.0)
[2024-12-15 08:33] LABS: Hemoglobin 7.9 g/dL (12.0-16.0)
[2024-12-15 09:05] LABS: Alanine Aminotransferase 27 U/L (10-49); Albumin, Serum 2.6 gm/dL (3.4-4.8); Albumin/Globulin Ratio 1.1 (1.2-2.2); Alkaline Phosphatase 184 U/L (46-116); Anion Gap 9 (7-16); Aspartate Amino Transferase 45 U/L (0-34); BUN/Creatinine Ratio 26 Ratio (12-20); Bilirubin,Total 2.2 mg/dL (0.3-1.2); Blood Urea Nitrogen 45 mg/dL (9-23); Calcium 7.3 mg/dL (8.3-10.6); Calcium (Corrected) 8.4 mg/dL (8.5-10.1); Carbon Dioxide 23.8 mMol/L (20.0-31.0); Chloride 105 mMol/L (98-107); Creatinine (Component) 1.7 mg/dL (0.6-1.3); Estimated Creatinine Clearance 36.5 mL/min (>60); Globulin 2.3 gm/dL (2.3-3.5); Glucose 164 mg/dL (74-106); Magnesium 2.0 mg/dL (1.6-2.6); Osmolality,Calculated 291 (275-295); Phosphorous 2.8 mg/dL (2.4-5.1); Potassium 3.3 mMol/L (3.4-5.1); Sodium 138 mMol/L (136-145); Total Protein 4.9 gm/dL (5.7-8.2); eGFR 33 See Note
[2024-12-15] MEDS: DULoxetine HCL 30 MG CAPSULE 60 MG PO (10:01)
[2024-12-15] MEDS: SPIRONOLACTONE 25 MG TABLET PO (10:01)
--- NOTE | 2024-12-15 11:47 | ESDS_ITS ---
<Statement entered by Brenton Livingston MD - 12/18/24 17:20> I reviewed above note and agree with findings and plans. I have also personally examined the patient with medicine team and went over assessment and plan with medical team including compensation intern and resident physician. Planned Discharge Date 12/15/24 DS: Providers Provider Date of admission: 12/11/24 01:23 Primary care physician: Physician No Primary/Family Admitting Provider: Dwayne Nino MD Attending Provider on Admission: Amberly Naqvi DO Consults: 12/11/24 06:29 Consult to Nephrology Routine Comment: EDY, ? hepatorenal syndrome Consulting Provider: Juan ([facility])Malik 12/12/24 14:23 Consult to Gastroenterology Routine Comment: GI bleed. with multiple melenic stools Consulting Provider: Ramonita Trevizo 12/14/24 10:46 Referral Physical Therapy Routine Comment: Physician Instructions: Referral Physical Therapy Routine Comment: Physician Instructions: Attending Provider on DC: Oli Wen MD Discharging Provider: Oli Wen MD DS: Diagnosis Problem List Completed Was Problem List Reviewed/Reconciled?: Yes Hospital Course Hospital Course Hospital course: 64-year-old female with past medical history of MASLD induced cirrhosis, psoriatic arthritis, depression, chronic pain who presented to the ED on 12/11 with altered mental status. In the ED, patient was tachycardic with hypotension and urinalysis was significant for leukocyte esterase and pyuria. CT scan of the abdomen confirmed cirrhosis of the liver without any ascites. Patient also has history of esophageal varices secondary to cirrhosis. A lumbar puncture was ordered which was largely negative other than mildly elevated protein. Patient was started on IV fluids and antibiotic regimen for UTI along with nephrology consultation for acute kidney injury, later believed to be secondary to HRS. On 12/13 GI was consulted for EGD as the patient had history of esophageal varices; patient was also started on octreotide drip. EGD results on 1018 showed grade 2 esophageal varices which were banded. Patient made significant improvement in mental status and ammonia was always negative as there was no suspicion for hepatic encephalopathy patient will be discharged stable with the following strict instructions and will require repeat renal function/CMP to assess for kidney function which was improving progressively. Please take carvedilol 3.125 mg tablet by mouth twice a day for esophageal varices prophylaxis Please take lactulose 10 g by mouth 3 times a day and that she 2?3 bowel movements a day, if you are having more bowel movements please decrease dose and talk with your PCP Stop taking metoprolol succinate 50mg and oxycodone; continue alll other home medications as prescribed Follow-up with nephrology for acute kidney injury likely secondary to UT and HRS type I Follow-up with gastroenterology for 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, follow-up with transplant center as well Follow-up with your PCP within 1 week of discharge or follow-up at [facility] [address] [place] [address] If your symptoms worsen or if you develop new chest pain, shortness of breath, dizziness or loss of consciousness - please come back to the ED immediately Hospital Diagnosis: #Acute blood loss anemia #Upper GI bleed #2/2 Esophageal Varices and Gastritis #Hx of GI bleed and Esophageal varices (05/09/2024) #Acute Encephalopathy - Resolving #Decompensated liver cirrhosis with ascites #Psoriatic arthritis #Chronic pain #EDY, Pre-renal versus HRS type I Oli Wen DO PGY-2 Internal Medicine - GME Time Spent with Patient Time attestation: Total time spent providing and/or coordinating discharge services: 45 minutes Time spent: Greater than 30 minutes Exam Vital Signs Temp Pulse Resp BP Pulse Ox O2 Del Method O2 Flow Rate 97.5 F 89 18 138/76 H 97 Room Air 1 12/15/24 08:00 12/15/24 10:01 12/15/24 08:00 12/15/24 10:12/15/24 08:00 12/15/24 08:00 12/14/24 16:00 Narrative Exam General: AAO x3, answering questions appropriately Eye: PERRL, EOMI, normal conjunctiva, no scleral icterus HENT: Normocephalic, atraumatic, hearing intact to conversation at normal volume, moist oral mucosa Neck: Supple, non-tender, no JVD, no lymphadenopathy Lungs: Non-labored respirations, symmetric chest rise, Clear to auscultate bilaterally, No wheezing, rhonchi, crackles Heart: Peripheral pulses intact bilaterally, Regular Rate and Rhythm. Abdomen: Soft, non-tender, non-distended, no palpable masses Musculoskeletal: Normal range of motion and strength, No cyanosis or edema, No visible joint swelling Skin: Skin is warm, dry, no rashes or lesions. Psychiatric: Cooperative, appropriate mood and affect, Awake and alert, not agitated Neuro: Cranial nerves II-XII grossly intact. Strength 3/5 throughout. Sensations intact to light touch. Discharge Plan Plan Patient Disposition: HOME (Self Care) Patient condition on transfer: Stable Care Plan Goals: Please take carvedilol 3.125 mg tablet by mouth twice a day for esophageal varices prophylaxis Please take lactulose 10 g by mouth 3 times a day and that she 2?3 bowel movements a day, if you are having more bowel movements please decrease dose and talk with your PCP Stop taking metoprolol succinate 50mg and oxycodone; continue alll other home medications as prescribed Follow-up with nephrology for acute kidney injury likely secondary to UT and HRS type I Follow-up with gastroenterology for 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, follow-up with transplant center as well Follow-up with your PCP within 1 week of discharge or follow-up at the [facility] [address] [place] [address] If your symptoms worsen or if you develop new chest pain, shortness of breath, dizziness or loss of consciousness - please come back to the ED immediately Prescriptions/Referrals Prescriptions/Med Rec: New lactulose 10 gram/15 mL Solution 10 g PO TID 30 Days Qty: 1350 0RF carvedilol 3.125 mg Tablet 3.125 mg PO BIDWM 30 Days Qty: 60 0RF Continued hydrocodone bitartrate 15 mg capsule, oral only, ER 12hr 15 mg PO Q12H PRN (Reason: pain) Patient Comments: TAKE 1 CAPSULE BY MOUTH EVERY 12 HOURS Otezla 30 mg tablet 30 mg PO BID duloxetine 60 mg capsule,delayed release(DR/EC) 60 mg PO BID Patient Comments: TAKE 1 CAPSULE BY MOUTH TWICE A DAY lamotrigine 200 mg tablet 200 mg PO DAILY Patient Comments: TAKE 1 TABLET BY MOUTH EVERY DAY FOR 30 DAYS Discontinued oxycodone 5 mg capsule 5 mg PO Q12H PRN (Reason: pain) metoprolol succinate 50 mg capsule,sprinkle,ER 24hr 50 mg PO QDAY Referrals: Malik Martinez MD [Physician, Nephrology] Raomnita Trevizo MD [Physician, Gastroenterology] No Primary/Family,Physician [Primary Care Provider] Outpatient Orders (i.e. Home Health, Labs, Imaging): Comprehensive Metabolic Panel (Routine) Timeframe: 1 Week Location: None Selected Ordered By: Oli Wen Patient/Caregiver Discharge Instructions Education Materials: Esophageal Varices, Treating Cirrhosis, Understanding Cirrhosis Print Language: Croatian Stand Alone Forms: Beatrice Award Info., Patient Portal Info Letter Discharge Order Discharge Orders: Discharge (Routine); Ordered 12/15/24 Ordered By: Oli Wen Quality Discharge Quality Measures VTE prophylaxis
--- NOTE | 2024-12-15 13:28 | PC.NURSE ---
MD made aware patient began vomiting and complains of dizziness. MD to assess patient at bedside. Discharge pending
[2024-12-15] MEDS: ONDANSETRON INJ 2 MG/ML INJ 2 ML 4 MG IVP (13:44)
--- NOTE | 2024-12-15 13:56 | ESPR_ITS ---
<Statement entered by Brenton Livingston MD - 12/18/24 17:20> I reviewed above note and agree with findings and plans. I have also personally examined the patient with medicine team and went over assessment and plan with medical team including internetworking technician and resident physician. Documentation for date of: 12/15/24 Subjective Subjective Interval history: Patient seen and assessed in hospital denies having any concerning symptoms at this time. Patient completed octreotide drip for esophageal varices. Continues to be on IV antibiotic regimen for UTI and white count continues to downtrend. Will hold off on starting patient on Lasix, spironolactone for decompensated liver cirrhosis as blood pressure and electrolytes are well-maintained at this time. Patient was supposed to be discharged on 12/15 however started to develop vomiting and dizziness likely secondary to liver disease. Will continue monitoring and expect discharge within the next 24 hours upon symptomatic management of vomiting and dizziness. Exam Vital Signs Temp Pulse Resp BP Pulse Ox O2 Del Method O2 Flow Rate 97.5 F 60 18 138/76 H 97 Room Air 1 12/15/24 08:00 12/15/24 12:00 12/15/24 08:00 12/15/24 10:01 12/15/24 08:00 12/15/24 08:00 12/14/24 16:00 Narrative Exam General: Distressed, Frail, AAO x3 Eye: PERRL, EOMI, normal conjunctiva, no scleral icterus HENT: Normocephalic, atraumatic, hearing intact to conversation at normal volume, moist oral mucosa Neck: Supple, non-tender, no JVD, no lymphadenopathy Lungs: Non-labored respirations, symmetric chest rise, Clear to auscultate bilaterally, No wheezing, rhonchi, crackles Heart: Peripheral pulses intact bilaterally, Regular Rate and Rhythm. Abdomen: Soft, non-tender, non-distended, no palpable masses Musculoskeletal: Normal range of motion and strength, No cyanosis or edema, No visible joint swelling Skin: Skin is warm, dry, no rashes or lesions. Psychiatric: Cooperative, appropriate mood and affect, Awake and alert, not agitated Neuro: Cranial nerves II-XII grossly intact. Strength 3/5 throughout. Sensations intact to light touch. Objective Labs 12/15/24 07:30 12/15/24 07:30 Labs: Laboratory Results - last 24 hr 12/13/24 12/14/24 12/14/24 06:14 16:44 22:24 WBC RBC Hgb 7.3 L 7.4 L Hct 22.6 L 22.3 L MCV MCH MCHC RDW Std Deviation Plt Count Neut % (Auto) Lymph % (Auto) [place] % (Auto) Eos % (Auto) Baso % (Auto) Neut # (Auto) Lymph # (Auto) [place] # (Auto) Eos # (Auto) Baso # (Auto) Immature Gran # (Auto) Absolute Nucleated RBC Immature Gran % Nucleated RBC % Smear Path Review Sodium Potassium Chloride Carbon Dioxide Anion Gap BUN Creatinine Estim Creat Clear Calc eGFR BUN/Creatinine Ratio Glucose Calculated Osmolality Calcium Corrected Calcium Phosphorus Magnesium Total Bilirubin AST ALT Alkaline Phosphatase Total Protein Albumin Globulin Albumin/Globulin Ratio Blood Type A Negative Antibody Screen NEGATIVE Crossmatch See Detail Blood Bank Wristband ID Yes 12/15/24 07:30 WBC 17.8 H D RBC 2.63 L Hgb 7.9 L Hct 23.5 L MCV 89 MCH 30.0 MCHC 33.6 RDW Std Deviation 51.7 H Plt Count 88 L Neut % (Auto) 74 Lymph % (Auto) 11 [place] % (Auto) 4 Eos % (Auto) 2 Baso % (Auto) 0 Neut # (Auto) 13.2 H Lymph # (Auto) 1.9 [place] # (Auto) 0.7 Eos # (Auto) 0.3 Baso # (Auto) 0.1 Immature Gran # (Auto) 1.58 H Absolute Nucleated RBC 0.00 Immature Gran % 9 H Nucleated RBC % 0 Smear Path Review Cancelled Sodium 138 Potassium 3.3 L D Chloride 105 Carbon Dioxide 23.8 Anion Gap 9 BUN 45 H Creatinine 1.7 H D Estim Creat Clear Calc 36.5 L eGFR 33 L BUN/Creatinine Ratio 26 H Glucose 164 H Calculated Osmolality 291 Calcium 7.3 L Corrected Calcium 8.4 L Phosphorus 2.8 Magnesium 2.0 Total Bilirubin 2.2 H AST 45 H ALT 27 Alkaline Phosphatase 184 H D Total Protein 4.9 L Albumin 2.6 L Globulin 2.3 Albumin/Globulin Ratio 1.1 L Blood Type Antibody Screen Crossmatch Blood Bank Wristband ID Quality Measures Quality Measures VTE prophylaxis Assessment & Plan Assessment Current Active Medications: Generic Name Dose Route Start Last Admin Trade Name Freq PRN Reason Stop Dose Admin Acetaminophen 650 mg 12/11/24 01:23 Acetaminophen 325 Mg Tablet PO 01/10/25 01:22 Q6H PRN Fever >101.5 Carvedilol 3.125 mg 12/13/24 17:30 12/15/24 08:20 Carvedilol 3.125 Mg Tablet PO 01/12/25 17:29 3.125 mg BIDWM JANELL Administration Duloxetine HCl 60 mg 12/15/24 09:00 12/15/24 10:01 Duloxetine Hcl 30 Mg Capsule PO 01/14/25 08:59 60 mg BID JANELL Administration Octreotide Acetate 1,000 mcg/ 102 mls @ 5.1 mls/hr 12/11/24 14:21 12/15/24 02:25 Sodium Chloride IV 12/16/24 14:21 50 mcg/hr .Q20H JANELL 5.1 mls/hr Protocol Administration 50 MCG/HR Albumin Human 25 gm in 100 mls @ 100 mls/hr 12/14/24 10:45 12/15/24 08:21 Albuminex 25% Ivpb IV 12/17/24 10:44 100 mls/hr QDAY JANELL Administration Ceftriaxone Sodium/Dextrose 1 gm in 50 mls @ 100 mls/hr 12/14/24 11:30 12/15/24 08:21 Rocephin/D5w 1gm Iv Premix IV 12/21/24 11:29 100 mls/hr QDAY JANELL Administration Lactulose 10 gm 12/15/24 14:00 Lactulose Syrup 20 Gm/30 Ml Udc PO 01/14/25 13:59 TID JANELL Protocol Lamotrigine 200 mg 12/12/24 09:00 12/15/24 08:21 Lamotrigine 100 Mg Tablet PO 01/11/25 08:59 200 mg DAILY JANELL Administration Metoclopramide HCl 10 mg 12/13/24 07:50 12/13/24 08:02 Metoclopramide 5 Mg Tablet PO 01/12/25 07:49 10 mg Q8HR PRN Administration NAUSEA OR VOMITING Spironolactone 25 mg 12/15/24 09:00 12/15/24 10:01 Spironolactone 25 Mg Tablet PO 01/14/25 08:59 25 mg QDAY JANELL Administration Plan The patient is a 64 yr old female male. Past medical history is significant for cirrhosis, MASH Psoriatec arthritis, depression, chronic pain. The patient presents with altered mental status. Patient was admitted for management of sepsis 2/2 UTI Patient came in and found to have 2 or more SIRS criteria and was evaluated for sepsis. However, based upon further work-up, sepsis was ruled out. #Decompensated liver cirrhosis, with ascites #Acute blood loss anemia secondary to upper GI bleed -Patient had multiple episodes of hematochezia before admission. -Patient had an episode of bloody emesis in the morning of 12/13 after given Dilaudid -Hx of GI bleed and Esophageal varices -CT abd/pelvis (12/10/2024): Cirrhosis, Hepatosplenomegaly, Esophageal and perigastric varices, Small ascites, No bowel obstruction, Enlarged fundus of the uterus -Hemoglobin level was initially 11.8 on admission. Now decreased go 8.8 on 12/13 -CT abd/pelvis (12/10/2024): Cirrhosis, Hepatosplenomegaly, Esophageal and perigastric varices, Small ascites, No bowel obstruction, Enlarged fundus of the uterus -Pelvis US (12/11/2024): Exophytic uterine fundal mass most consistent with fibroid degeneration 3.2 x 2.8 x 2.9 cm -EGD (12/13/2024): Grade II esophageal varices. banded. Gastritis with hemorrhage, characterized by erythema. Normal examined duodenum. No specimens collected. Plan: -On Octreotide IV 50mcg -Patient started on full liquid diet. Patient will received octreotide for total of 5 days. -Monitor H&H -Transfuse if hemoglobin less than 7 -Consulted GI, appreciate recommendations. -On IV protonix 80mg, IV Octreotide 50mcg -Lactulose changed to 10 mg 3 times daily to achieve 2-3 bowel movements a day -Completed IV albumin 25g qd 100ml/hr.(12/14-) #EDY, Pre-renal #Hepatorenal syndrome type I -Upon admission, BUN 79 (baseline:9) , Cr 4.4 (Baseline of 0.9), eGFR 11 (Baseline:>60) -Likely prerenal in the setting of sepsis and given improvement with IV fluids Plan: -Stopped IV fluids -Avoid nephrotoxins -Renally dose medication #Complicated UTI -Clinical picture meets 3/4 SIRS criteria: T 98.1 (>100.4 or <96.8F), RR 23 (>20/min), HR 101 (>90/min), WBC 38.9 (>12 or <4K or Bands >10%). LA 3.2 (>2), and UTI as a source of infection =Severe Sepsis -UA showed Turbid yellow, Urine Protein 1+, Blood 2+, Leukocyte Esterase positive, RBC 29, WBC: 459, Urine bacteria 3+ -CXR (12/10/2024): Mild vascular congestion -Blood Cx and Urine Cx were negative. Plan: - On IV Ceftriaxone 1g qd - Daily labs BMP, CBC, and electrolyte #Uterine mass, likely fibroid degeneration Incidentally found on CT Pelvic ultrasound shows Exophytic uterine fundal mass most consistent with fibroid degeneration 3.2 x 2.8 x 2.9 cm Plan: Follow-up outpatient with [facility] #Psoriatic arthritis #Chronic pain -Patient noted that she had psoriatic arthritis for 22 years and has been taking vicodin (hydrocodone, and Acetaminophen) for many years, which eventually caused her to have cirrhosis. Patient does not want tylenol as that was the culprit of her cirrhosis. -During hospitalization, it flared up causing sharp pain and all over her body. Night team gave the patient dilaudid 1mg IVx1 which made the patient's nauseous and causing episode of hematemesis on 12/13 morning. -Advise against Dilaudid. Patient noted she was handling pain fine by herself in outpatint setting. -If another episodes of pain, consider [place]. Hospital Management: Disposition: Med Surg Diet: Clear liquid diet GI prophylaxis: None DVT prophylaxis: SCD Code: FULL Patient seen and assessed with attending Dr. Miki Wen, DO PGY-2 Internal Medicine - [facility]
[2024-12-15] MEDS: LACTULOSE SYRUP 20 GM/30 ML UDC 10 GM PO (14:02)
[2024-12-15] MEDS: ACETAMINOPHEN 325 MG TABLET 650 MG PO (19:55)
--- NOTE | 2024-12-15 21:02 | ESPR_ITS ---
Documentation for date of: 12/15/24 Subjective Subjective Interval history: Patient evaluated Hemoglobin hematocrit 7.9 and 23.5 Upper endoscopy showed esophageal varices requiring band ligation Exam Vital Signs Temp Pulse Resp BP Pulse Ox O2 Del Method O2 Flow Rate 97.3 F 66 17 121/64 95 Room Air 1 12/15/24 20:00 12/15/24 20:00 12/15/24 20:00 12/15/24 20:00 12/15/24 20:00 12/15/24 20:00 12/14/24 16:00 Objective Labs 12/15/24 07:30 12/15/24 07:30 Labs: Laboratory Results - last 24 hr 12/13/24 12/14/24 12/15/24 06:14 22:24 07:30 WBC 17.8 H D RBC 2.63 L Hgb 7.4 L 7.9 L Hct 22.3 L 23.5 L MCV 89 MCH 30.0 MCHC 33.6 RDW Std Deviation 51.7 H Plt Count 88 L Neut % (Auto) 74 Lymph % (Auto) 11 [place] % (Auto) 4 Eos % (Auto) 2 Baso % (Auto) 0 Neut # (Auto) 13.2 H Lymph # (Auto) 1.9 [place] # (Auto) 0.7 Eos # (Auto) 0.3 Baso # (Auto) 0.1 Immature Gran # (Auto) 1.58 H Absolute Nucleated RBC 0.00 Immature Gran % 9 H Nucleated RBC % 0 Smear Path Review Cancelled Sodium 138 Potassium 3.3 L D Chloride 105 Carbon Dioxide 23.8 Anion Gap 9 BUN 45 H Creatinine 1.7 H D Estim Creat Clear Calc 36.5 L eGFR 33 L BUN/Creatinine Ratio 26 H Glucose 164 H Calculated Osmolality 291 Calcium 7.3 L Corrected Calcium 8.4 L Phosphorus 2.8 Magnesium 2.0 Total Bilirubin 2.2 H AST 45 H ALT 27 Alkaline Phosphatase 184 H D Total Protein 4.9 L Albumin 2.6 L Globulin 2.3 Albumin/Globulin Ratio 1.1 L Crossmatch See Detail Impressions Impression: Upper GI bleed secondary to esophageal variceal bleeding requiring band ligation Continue current management Assessment & Plan A&P Narrative # Hematemesis in the setting of MOONEY cirrhosis plan N.p.o. consent obtained for fiberoptic esophagogastroduodenoscopy with possible biopsy possible therapeutic intervention under intravenous moderate sedation. Continue octreotide at 50 mcg/h Continue IV Protonix Serial CBC Will follow the patient Thank you very much for the opportunity to participate in the care of this patient Time Spent With Patient Time: Total time spent is greater than 50% in coordination of care (as documented) at patient's floor/unit and/or counseling patient:
[2024-12-15] MEDS: METOCLOPRAMIDE 5 MG TABLET 10 MG PO (21:54)
[2024-12-16] VITALS (8 sets, daily range): BP systolic 128–151; BP diastolic 69–81; PULSE 62–84; RESP 12–18; TEMP 35.8–36.6; O2SAT 94–98
[2024-12-16] MEDS: OCTREOTIDE ACET INJ 1,000 MCG in SODIUM CHLORIDE 0.9% 100 ML 5.1 MCG IV (02:45)
[2024-12-16 05:56] LABS: Basophils # (Auto) 0.1 Thou/mm3 (0.0-0.2); Basophils % (Auto) 0 % (0-2.5); Eosinophils # (Auto) 0.3 Thou/mm3 (0.0-0.5); Eosinophils % (Auto) 2 % (0-10); Hematocrit 23.5 % (36.0-46.0); Immature Granulocytes Auto 1.51 Thou/mm3 (0.00-0.00); Lymphocytes # (Auto) 2.2 Thou/mm3 (1.0-4.8); Lymphocytes % (Auto) 11 % (10-50); Mean Corpuscular HGB Conc 33.2 g/dl (31.0-37.0); Mean Corpuscular Hemoglobin 30.4 pg (25.0-35.0); Mean Corpuscular Volume 91 fL (80-100); Monocytes # (Auto) 0.8 Thou/mm3 (0.0-0.8); Monocytes % (Auto) 4 % (0-12); Neutrophils # (Auto) 15.0 Thou/mm3 (1.8-7.7); Neutrophils % (Auto) 75 % (37-80); Nucleated Red Blood Cell # 0.02 Thou/mm3 (0.00-0.00); Nucleated Red Blood Cell % 0 /100 WBC (0); Platelet Count 113 Thou/mm3 (140-440); RDW Standard Deviation 51.0 fL (36.4-46.3); Red Blood Count 2.57 Miln/mm3 (4.00-5.20); White Blood Count 19.9 Thou/mm3 (3.6-11.0)
[2024-12-16 06:01] LABS: Hemoglobin 7.8 g/dL (12.0-16.0)
[2024-12-16 06:16] LABS: Alanine Aminotransferase 25 U/L (10-49); Albumin, Serum 3.0 gm/dL (3.4-4.8); Albumin/Globulin Ratio 1.4 (1.2-2.2); Alkaline Phosphatase 173 U/L (46-116); Anion Gap 11 (7-16); Aspartate Amino Transferase 44 U/L (0-34); BUN/Creatinine Ratio 23 Ratio (12-20); Bilirubin,Total 2.0 mg/dL (0.3-1.2); Blood Urea Nitrogen 39 mg/dL (9-23); Calcium 7.6 mg/dL (8.3-10.6); Calcium (Corrected) 8.4 mg/dL (8.5-10.1); Carbon Dioxide 22.9 mMol/L (20.0-31.0); Chloride 103 mMol/L (98-107); Creatinine (Component) 1.7 mg/dL (0.6-1.3); Estimated Creatinine Clearance 36.5 mL/min (>60); Globulin 2.1 gm/dL (2.3-3.5); Glucose 163 mg/dL (74-106); Magnesium 2.1 mg/dL (1.6-2.6); Osmolality,Calculated 287 (275-295); Phosphorous 2.8 mg/dL (2.4-5.1); Potassium 4.0 mMol/L (3.4-5.1); Sodium 137 mMol/L (136-145); Total Protein 5.1 gm/dL (5.7-8.2); eGFR 33 See Note
[2024-12-16] MEDS: ALBUMIN HUMAN-KJDA 25% IVPB 25 GM/100 ML BTL IV (08:14)
[2024-12-16] MEDS: SPIRONOLACTONE 25 MG TABLET PO (08:14)
[2024-12-16] MEDS: DULoxetine HCL 30 MG CAPSULE 60 MG PO (08:15)
[2024-12-16] MEDS: cefTRIAXone/D5w 1gm IV premix 1 GM/50 ML BAG IV (08:15)
--- NOTE | 2024-12-16 09:53 | PC.SS ---
Follow up note: Pt is possible d/c home today.
--- NOTE | 2024-12-16 10:55 | ESDS_ITS ---
<Statement entered by Brenton Livingston MD - 12/21/24 08:34> I reviewed above note and agree with findings and plans. I have also personally examined the patient with medicine team and went over assessment and plan with medical team including pr intern and resident physician. Planned Discharge Date 12/16/24 DS: Providers Provider Date of admission: 12/11/24 01:23 Primary care physician: Physician No Primary/Family Admitting Provider: Dwayne Nino MD Attending Provider on Admission: Brenton Livingston MD Consults: 12/11/24 06:29 Consult to Nephrology Routine Comment: EDY, ? hepatorenal syndrome Consulting Provider: Juan (REF [facility])Malik 12/12/24 14:23 Consult to Gastroenterology Routine Comment: GI bleed. with multiple melenic stools Consulting Provider: Ramonita Trevizo 12/14/24 10:46 Referral Physical Therapy Routine Comment: Physician Instructions: Referral Physical Therapy Routine Comment: Physician Instructions: Attending Provider on DC: Flaco Alberto DO Discharging Provider: Flaco Alberto DO DS: Diagnosis Problem List Completed Was Problem List Reviewed/Reconciled?: Yes Hospital Course Hospital Course Hospital course: Summary: The patient is a 64 yr old female male with past medical history of GI bleed and Esophageal varices, cirrhosis, MASH, Psoriatec arthritis, depression, chronic pain, presented to ED on 12/10/2024 due to altered mental status. Patient was admitted for management of sepsis 2/[address] abd/pelvis revealed esophageal varices which were banded and gastritis with hemorrhage. Patient was given IV antibiotics, IV octreotide, IV protonix, and lactulose. ED course: Vitals: 98.1 F, OH 122, RR 20, BP 134/72, 100% O2 sat on room air Labs: WBC 38.9, Hgb 11.8, HCT 34.6, PLT 99, HCO3 17.9, BUN 79, CR 4.4, eGFR 11, CT abd/pelvis (12/10/2024): Cirrhosis, Hepatosplenomegaly, Esophageal and perigastric varices, Small ascites, No bowel obstruction, Enlarged fundus of the uterus Pelvis US (12/11/2024): Exophytic uterine fundal mass most consistent with fibroid degeneration 3.2 x 2.8 x 2.9 cm In ED patient received ceftriaxone 1 g IVx1, lactulose 30 g p.o. x 1. Hospital Course: Upon admission, patient was given IV Zosyn 0.375 g and IV doxycycline 100 mg twice daily, and IVF. For her cirrhosis patient was given IV Protonix 80 mg, IV octreotide 50 mcg, lactulose 20 mg p.o. twice daily. EGD (12/13/2024) showed Grade II esophageal varices. banded. Gastritis with hemorrhage, characterized by erythema. Normal examined duodenum. No specimens collected. After EGD, Patient started on full liquid diet. After EGD, patient discontinued doxycycline and started on IV Ceftriaxone 1g qd for SBP prophylaxis and IV albumin 25g qd 100ml/hr. Patient will received octreotide for total of 5 days during admission. For future reference, during hospitalization, psoriatic arthritis flared up causing sharp pain all over her body, so patient got dilaudid 1mg IVx1 which made her nauseous causing episode of hematemesis on 12/13 morning. Moreover, after EGD, patient became nauseous again after taking duloxetine, so it had to be discontinued. 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 [place] [address] Repeat CBC in 1 week and follow-up with your PCP as your white blood cell count is elevated likely secondary to underlying psoriatic arthritis If your symptoms worsen or if you develop new chest pain, shortness of breath, dizziness or loss of consciousness - please come back to the ED immediately #Decompensated liver cirrhosis, with ascites, MASH #Acute blood loss anemia secondary to upper GI bleed #EDY, Pre-renal #Hepatorenal syndrome type I #Complicated UTI #Uterine mass, likely fibroid degeneration #Psoriatic arthritis #Chronic pain Assessment and plan discussed with my attending physician Dr. Miki Alberto (PGY-1) - Internal medicine resident Status at Discharge Overall status at discharge: patient is progressing back to baseline Time Spent with Patient Time attestation: Total time spent providing and/or coordinating discharge services: Time spent: Greater than 30 minutes Exam Vital Signs Temp Pulse Resp BP Pulse Ox O2 Del Method O2 Flow Rate 97.2 F 67 18 128/69 96 Room Air 1 12/16/24 08:00 12/16/24 08:14 12/16/24 08:00 12/16/24 08:14 12/16/24 08:00 12/16/24 08:00 12/14/24 16:00 Narrative Exam General: Distressed, Frail, AAO x3 Eye: PERRL, EOMI, normal conjunctiva, no scleral icterus HENT: Normocephalic, atraumatic, hearing intact to conversation at normal volume, moist oral mucosa Neck: Supple, non-tender, no JVD, no lymphadenopathy Lungs: Non-labored respirations, symmetric chest rise, Clear to auscultate bilaterally, No wheezing, rhonchi, crackles Heart: Peripheral pulses intact bilaterally, Regular Rate and Rhythm. Abdomen: Soft, non-tender, non-distended, no palpable masses Musculoskeletal: Normal range of motion and strength, No cyanosis or edema, No visible joint swelling Skin: Skin is warm, dry, no rashes or lesions. Psychiatric: Cooperative, appropriate mood and affect, Awake and alert, not agitated Neuro: Cranial nerves II-XII grossly intact. Strength 3/5 throughout. Sensations intact to light touch. Discharge Plan Plan Patient Disposition: Home w/HOME HEALTH Patient condition on transfer: Stable Care Plan Goals: Please take carvedilol 3.125 mg tablet by mouth twice a day for esophageal varices prophylaxis Please take lactulose 10 g by mouth 2 times a day and that she 2?3 bowel movements a day, if you are having more bowel movements please decrease dose and talk with your PCP Stop taking metoprolol succinate 50mg, duloxetine 60 mg and oxycodone; continue alll other home medications as prescribed Follow-up with nephrology for acute kidney injury likely secondary to UT and HRS type I Follow-up with gastroenterology for 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, follow-up with transplant center as well Follow-up with your PCP within 1 week of discharge or follow-up at the [facility] [id number] [place], [place] [id number] Repeat CBC in 1 week and follow-up with your PCP as your white blood cell count is elevated likely secondary to underlying psoriatic arthritis If your symptoms worsen or if you develop new chest pain, shortness of breath, dizziness or loss of consciousness - please come back to the ED immediately Prescriptions/Referrals Prescriptions/Med Rec: New carvedilol 3.125 mg Tablet 3.125 mg PO BIDWM 30 Days Qty: 60 0RF lactulose 10 gram/15 mL Solution 10 g PO BID 30 Days Qty: 900 0RF Continued hydrocodone bitartrate 15 mg capsule, oral only, ER 12hr 15 mg PO Q12H PRN (Reason: pain) Patient Comments: TAKE 1 CAPSULE BY MOUTH EVERY 12 HOURS Otezla 30 mg tablet 30 mg PO BID lamotrigine 200 mg tablet 200 mg PO DAILY Patient Comments: TAKE 1 TABLET BY MOUTH EVERY DAY FOR 30 DAYS Discontinued oxycodone 5 mg capsule 5 mg PO Q12H PRN (Reason: pain) metoprolol succinate 50 mg capsule,sprinkle,ER 24hr 50 mg PO QDAY duloxetine 60 mg capsule,delayed release(DR/EC) 60 mg PO BID Patient Comments: TAKE 1 CAPSULE BY MOUTH TWICE A DAY Referrals: Malik Martinez MD [Physician, Nephrology] Ramonita Trevizo MD [Physician, Gastroenterology] No Primary/Family,Physician [Primary Care Provider] Outpatient Orders (i.e. Home Health, Labs, Imaging): CBC (Routine) Timeframe: 1 Week Location: None Selected Ordered By: Oli Wen Comprehensive Metabolic Panel (Routine) Timeframe: 1 Week Location: None Selected Ordered By: Oli Wen Patient/Caregiver Discharge Instructions Education Materials: Esophageal Varices, Treating Cirrhosis, Understanding Cirrhosis Print Language: Estonian Stand Alone Forms: Beatrice Award Info., Patient Portal Info Letter Discharge Order Discharge Orders: Discharge (Routine); Ordered 12/16/24 Ordered By: Oli Wen Quality Discharge Quality Measures VTE prophylaxis
--- NOTE | 2024-12-16 14:52 | PC.NURSE ---
was waiting pt to toralate her lunch diet. pt tolerated well with no nausea or vomiting. dr mendoza updated and ok to discharge.
== END 2024-12-16 16:43 | disposition home or self-care (01) | DRG 871 ==
LOC: SERX 12-11 01:12 → SERHOLD 12-11 01:53 → S3NX 12-11 03:39
PROVIDERS: Internal Medicine; Specialist; Student in an Organized Health Care Education/Training Program; Admitting Provider Internal Medicine; Emergency Provider Emergency Medicine; Visit Provider Internal Medicine
PROC: 06L38CZ Occlusion of Esophageal Vein with Extraluminal Device, Via Natural or Artificial Opening Endoscopic (ICD-10-PCS; CPT 43239; principal; 2024-12-13 17:15)
DX: A41.9 Sepsis, unspecified organism (principal); G93.41 Metabolic encephalopathy; I85.11 Secondary esophageal varices with bleeding; K29.71 Gastritis, unspecified, with bleeding; K76.7 Hepatorenal syndrome; N39.0 Urinary tract infection, site not specified; E87.20 Acidosis, unspecified; N17.9 Acute kidney failure, unspecified; D62 Acute posthemorrhagic anemia; F11.20 Opioid dependence, uncomplicated; K76.6 Portal hypertension; R18.8 Other ascites; K74.60 Unspecified cirrhosis of liver; R65.20 Severe sepsis without septic shock; E83.52 Hypercalcemia; K76.82 Hepatic encephalopathy; M54.9 Dorsalgia, unspecified; I10 Essential (primary) hypertension; E88.09 Other disorders of plasma-protein metabolism, not elsewhere classified; R16.2 Hepatomegaly with splenomegaly, not elsewhere classified; F32.A Depression, unspecified; D69.6 Thrombocytopenia, unspecified; G89.29 Other chronic pain; K75.81 Nonalcoholic steatohepatitis (NASH); L40.50 Arthropathic psoriasis, unspecified; Z88.2 Allergy status to sulfonamides
CPT/HCPCS: 36415; 70450; 71045; 74176; 76700; 76856; 80053; 80307; 80320; 81001; 82140; 82570; 82945; 83605; 83735; 84100; 84156; 84157; 84300; 85014; 85018; 85025; 85610; 86850; 86900; 86901; 86923; 87040; 87070; 87086; 87205; 89051; 93225; 96361; 96365; 96366; 96375; 97162; A4649; J0696; J1171; J1200; J2250; J2354; J2405; J2470; J2543; J3010; J3490; J7030; J7050; J7060; J7120; P9047; A9270; G0480; P0947